=== PATIENT | female | born 1960 | race Caucasian/White ===

== ENCOUNTER → 2018-06-07 09:42 | Outpatient (CLI) | payer OTHER, SELFPAY ==
--- NOTE | 2018-06-07 09:51 | FL_ITS ---
FL upper GI small bowel HISTORY: ITS.REASON: EPIGASTRIC PAIN, REFLUX ORDERING PHYSICIAN: Cortney Alvarez PATIENT AGE: 57 years Comparison: None FINDINGS: The esophagus, stomach, and duodenum have an unremarkable appearance. There is no evidence of hiatal hernia. No ulcer or mass evident. No mucosal abnormalities apparent. There is normal peristalsis. The duodenal C-loop is nondisplaced. There was a small amount reflux into the distal esophagus. The small bowel has an unremarkable appearance. No obstruction, mucosal abnormalities, or masses are evident. The terminal ileum has an unremarkable appearance and the appendix didn't fill. FLUOROSCOPY TIME : 1 minute and 45 seconds. IMPRESSION: 1. Minimal amount of gastroesophageal reflux otherwise negative upper GI. 2. Unremarkable small bowel
== END ==
PROVIDERS: PCP Nurse Practitioner; Visit Provider Nurse Practitioner
DX: K21.9 Gastro-esophageal reflux disease without esophagitis (principal); R10.13 Epigastric pain
CPT/HCPCS: 74245

== ENCOUNTER 2019-03-16 08:23 | Outpatient (RCR) | payer OTHER, SELFPAY ==
--- NOTE | 2019-03-16 11:43 | HMH.PTOPEV ---
PT Outpatient Evaluation Rehab PT Outpatient Evaluation Start: 03/16/19 09:38 Freq: Status: Active Protocol: Document 03/16/19 09:39 LAXMI (Rec: 03/16/19 11:42 LAXMI [id number]) Electronically Signed By Dav Torres, PT 03/16/19 09:39 Outpatient Therapy Subjective History Subjective History Patient is a 58 year old female presenting to outpatient PT with reports of chronic low back pain with intermittent LLE radicular symptoms starting approximately 4 years ago of insidious onset that has recently progressivly gotten worse. No recent diagnostics to report. Special tests indciat R anterior rotation of the innominat. Pt reports 1 previous episode of PT with posititive results. Pt indicates flexion bias. Previous relief with lumbar mechanical traction. Pt denies any other comorbidites. Chief Complaint Pain,Stiff Symptom Type Ache,Sharp Symptoms Relieved By Rest/Positioning Prior Functional Limitations None Current Functional Limitations Lifting,Standing,Sitting, Walking,Bending/Stooping Symptom Description Intermittent Level of pain today (0-10) 5 Pain scale - at its best (0-10) 0 Pain scale - at its worst (0-10) 8 Lumbopelvic Eval Posture Thoracic Spine Posture Standing Position Increased Kyphosis Lumbar Spine Posture Standing Position Neutral Gait Observation General Gait Pattern Observation No Deviations/Normal Palapation tenderness left buttock tenderness Yes: 2/4 Lumbar/Sacral Palpation Findings Tenderness Lumbar/Sacral Palpation Overall Comment 2/4 L PSIS Accessory Movement L5 bilateral S1 bilateral Range of Motion Lumbar Spine Active Flexion Range of 78 Motion (degrees) Lumbar Spine Active Extension Range of 25 Motion (degrees) Left Lumbar Spine Lateral Flexion Active WNL Range of Motion (degrees) Right Lumbar Spine Lateral Flexion WNL Active Range of Motion (degrees) Lumbar Spine ROM Limitations Soft Tissue Tightness,Bony Restriction Manual Muscle Test Bilateral Knee Extension Strength Grade 4 Good Knee Flexion Strength Grade 4 Good Hip Flexion Strength Grade 4 Good Extensor Hallucis L
== END 2019-03-16 08:28 | disposition home or self-care (01) ==
LOC: PT 08:23
PROVIDERS: PCP Nurse Practitioner; Visit Provider Nurse Practitioner
DX: M54.9 Dorsalgia, unspecified (principal); R20.0 Anesthesia of skin
CPT/HCPCS: 97010; 97014; 97163; G0283

== ENCOUNTER → 2019-04-25 13:19 | Outpatient (POV) | payer OTHER, SELFPAY ==
[2019-04-25 15:27] LABS: Basophils # 0.1 K/mm3 (0-0.2); Basophils % 1.1 % (0.1-2.0); Eosinophils # 0.1 K/mm3 (0.0-0.4); Eosinophils % 1.5 % (0.1-12.0); Hematocrit 44.1 % (37.0-47.0); Hemoglobin 13.4 g/dL (12.2-16.2); Lymphocytes # 1.6 K/mm3 (0.7-4.5); Lymphocytes % 23.3 % (10-50); Mean Corpuscular HGB Conc 30.5 g/dL (31.8-35.4); Mean Corpuscular Hemoglobin 29.8 pg (27.0-31.2); Mean Corpuscular Volume 97.8 fl (81-99); Mean Platelet Volume 7.5 fl (7.4-10.4); Monocytes # 0.3 K/mm3 (0.1-1.0); Neutrophils # 4.6 K/mm3 (1.8-7.8); Neutrophils % 69.1 % (37.0-80.0); Platelet Count 344 K/mm3 (142-424); Red Blood Count 4.51 M/mm3 (4.20-5.40); Red Cell Distribution Width 13.7 % (11.5-17.5); White Blood Count 6.7 K/mm3 (4.8-10.8)
[2019-04-25 16:47] LABS: Alanine Aminotransferase 19 U/L (12-78); Albumin/Globulin Ratio 1.3 (1.1-1.8); Alkaline Phosphatase 117 U/L (46-116); Aspartate Amino Transferase 16 U/L (15-37); Bilirubin,Total 0.3 mg/dL (0.2-1.0); Blood Urea Nitrogen 14 mg/dL (7-18); Calcium 9.7 mg/dL (8.5-10.1); Carbon Dioxide 31 mmol/L (21.0-32.0); Chloride 103 mmol/L (98-107); Creatinine,Serum 0.47 mg/dL (0.55-1.02); Estimated Glomerular Filt Rate 136 ml/min (>60); GFR (African American) 165 ML/MIN (>60); Globulin 3.1 gm/dl (1.3-3.2); Glucose 110 mg/dL (74-106); Sodium 141 mmol/L (136-145); Total Protein,Serum 7.1 gm/dL (6.4-8.2)
== END ==
PROVIDERS: PCP Nurse Practitioner; Visit Provider Nurse Practitioner Family
DX: R76.8 Other specified abnormal immunological findings in serum (principal); E74.31 Sucrase-isomaltase deficiency; K59.00 Constipation, unspecified; R10.13 Epigastric pain
CPT/HCPCS: 36415; 80053; 85025; 87522

== ENCOUNTER → 2019-06-27 15:31 | Outpatient (POV) | payer OTHER, SELFPAY | PROVIDERS: Visit Provider Nurse Practitioner Family | DX: Z00.00 Encounter for general adult medical examination without abnormal findings (principal) ==

== ENCOUNTER 2020-08-16 06:50 | Emergency (ER) | payer BC, SELFPAY ==
[2020-08-16 06:52] VITALS: BP 169/66; PULSE 67; RESP 18; TEMP 37.1; O2SAT 97; BMI 21.9
--- NOTE | 2020-08-16 07:34 | CT_ITS ---
PROCEDURE: CT ABDOMEN PELVIS WO CON CLINICAL INDICATION: left flank pain COMPARISON: CT ABDPELW/O CT ABD PELVIS W/O CONTRAST from 01/12/2014 TECHNIQUE: Axial images obtained with sagittal and coronal reformats. All CT scans at the facility use one or more dose reduction, viz: automated exposure control, ma/kV adjustment per patient size (including targeted exams where dose is matched to indication, i.e. head), or iterative reconstruction technique. FINDINGS: LOWER THORAX: The lung bases are clear. ABDOMEN & PELVIS: There is mild thickening of the distal esophagus which is nonspecific. The liver and spleen have an unremarkable appearance. There is some mild fullness of the junction of the body and tail the pancreas. This is of questionable clinical significance and may be better evaluated with outpatient MRI without and with enhancement. Gallbladder has an unremarkable appearance. There are bilateral renal calculi measuring up to 8 mm in the lower pole on the right and 3 mm in the lower pole on the left. There is mild left hydronephrosis and hydroureter secondary to a 4 mm stone in the distal left ureter just proximal to the ureterovesical junction. Incidental note is made of some scarring of the upper pole of the right kidney. No evidence of appendicitis. There is colonic diverticulosis but no evidence of diverticulitis. A small focus of calcification is present in the mid aspect of the body of the uterus unchanged. There is multilevel lumbar spondylosis with prominent sclerosis at the endplate of L2 and L3 with anterior osteophytes at that level. There is mild levoscoliosis of the lumbar spine IMPRESSION: 1. 4 mm left distal ureteral calculus with mild left-sided hydroureteronephrosis. 2. Bilateral nephrolithiasis. 3. Mild fullness of the junction of the body and tail the pancreas. Nonemergent CT or MRI without and with contrast with pancreatic protocol may provide further evaluation 4. Colonic diverticulosis without diverticulitis Dictated by: Harry Dimas MD 08/16/2020 08:57 Harry Dimas MD in [place] 08/16/2020 08:57
[2020-08-16 07:41] VITALS: BP 146/62; PULSE 72; O2SAT 96
--- NOTE | 2020-08-16 07:49 | HMH.EDGENADL ---
ED Disposition Condition on Discharge: Good - Critical Care Critical Care Time: No <Marcus Lyman - Last Filed: 08/16/20 08:13> Condition on Discharge: Fair Time of Disposition: 09:52 - Critical Care Critical Care Time: No <Chinedu Nowak - Last Filed: 08/16/20 09:55> Clinical Impression: Renal colic on left side Disposition: Home, Self-Care Instructions: DI for Kidney Stones, DI for Urinary Tract Infection (UTI) Additional Instructions: Blood work shows low potassium as well as a urinary tract infection please continue to take the antibiotics already prescribed for you; we are also prescribing you Zofran for nausea; you also have a kidney stone on the left side it is 4 mm in size and this may pass on its own; as you seem to be stable we are sending you home with medications; please follow-up with a urologist in case of any concerns Prescriptions: Tamsulosin HCl [Flomax 0.4mg capsule] 0.4 mg PO HS 15 Days #15 cap Prescription Printed Ketorolac Tromethamine [Toradol 10mg tablet] 10 mg PO Q6H 5 Days #20 tab Prescription Printed Ondansetron [Zofran 4mg ODT] 4 mg PO NEEDED PRN 10 Days #14 tab.rapdis PRN Reason: Nausea Prescription Printed Referrals: Cortney Alvarez APRN [Primary Care Provider] - Alessandro Hendrickson MD [Staff Physician] - Attestation: On 08/16/20, the high probability of a clinically significant, sudden or life threatening deterioration of the following system(s) required my full and direct attention, intervention and personal management. The time I documented below is in addition to time spent performing reported procedures but includes the following listed in this critical care notation. Medical Decision Making - Medical Records Medical records reviewed: Yes: I reviewed the patient's medical records. - Mina Inquiry Pt receiving controlled substance: No - Lab Data Lab results reviewed: Yes: I reviewed the patient's lab results. Result diagrams: 08/16/20 07:10 08/16/20 07:10 <Marcus Lyman - Last Filed: 08/16/20 08:13> - Medical Records MR Comment: Patient is a 60 year old female that came in with a complaint of flank pain; Took over care from Dr. Lyman; reviewed her labs and it shows she has low potassium with a potassium of 3.2; plan is to give her 40 mEq of potassium; urinalysis shows urinary tract infection with nitrites positive and 3+ blood; CT of the abdomen and pelvis shows 4mm stone in the left side left distal ureter area with mild left hydronephrosis; she has been given IV fluids and Toradol she is doing better now; she does have antibiotic already prescribed by her PCP; Advising her to continue with the antibiotic and follow-up with urologist we will be prescribing her Toradol 10 as well as Zofran for nausea - Mina Inquiry Pt receiving controlled substance: No - Lab Data Lab results reviewed: Yes: I reviewed the patient's lab results. Result diagrams: 08/16/20 07:10 08/16/20 07:10 <Chinedu Nowak - Last Filed: 08/16/20 09:55> Vital Signs: 08/16/20 06:52 08/16/20 07:41 08/16/20 08:00 Temperature 98.7 F Temperature Source Oral Pulse Rate [Left Radial] 67 72 78 Respiratory Rate 18 Blood Pressure [Right Arm] 169/66 H 146/62 H 125/47 L Blood Pressure Mean [Right Arm] 100 90 73 Blood Pressure Source [Right Arm] Automatic Cuff Automatic Cuff Automatic Cuff Blood Pressure Position [Right Arm] Sitting Sitting Sitting 02 Sat by Pulse Oximetry 97 96 96 Oxygen Delivery Method Room Air Room Air Room Air - Lab Data Lab Results 08/16/20 07:10: WBC 10.0, RBC 4.57, Hgb 14.5, Hct 43.2, MCV 94.6, MCH 31.7 H, MCHC 33.5, RDW 13.7, Plt Count 345, MPV 7.7, Neut % (Auto) 75.5, Lymph % (Auto) 17.0, [place] % (Auto) 5.7, Eos % (Auto) 1.1, Baso % (Auto) 0.6, Neut # (Auto) 7.6, Lymph # (Auto) 1.7, [place] # (Auto) 0.6, Eos # (Auto) 0.1, Baso # (Auto) 0.1 08/16/20 07:10: Sodium 141, Potassium 3.2 L, Chloride 105, Carbon Dioxide 28, Anion Gap 11
[2020-08-16 07:53] LABS: Microscopic, Urine URINE MICROSCOPIC (MICROSCOPIC)
[2020-08-16 07:54] LABS: Appearance,Urine CLEAR (Clear); Bilirubin,Urine Negative (Negative); Blood, Urine 3+ (Negative); Color,Urine YELLOW (Yellow); Glucose,Urine (UA) Negative (Negative); Ketones,Urine Negative (Negative); Leukocyte Esterase,Urine Negative (Negative); Nitrate,Urine POSITIVE (Negative); PH,Urine 6.5 (5.0-8.5); Protein,Urine TRACE (Negative); Specific Gravity, Urine 1.025 (1.005-1.030); Urobilinogen,Urine 0.2 EU/dl (0.2)
[2020-08-16 07:58] LABS: Basophils # 0.1 K/mm3 (0-0.2); Basophils % 0.6 % (0.1-2.0); Eosinophils # 0.1 K/mm3 (0.0-0.4); Eosinophils % 1.1 % (0.1-12.0); Hematocrit 43.2 % (37.0-47.0); Hemoglobin 14.5 g/dL (12.2-16.2); Lymphocytes # 1.7 K/mm3 (0.7-4.5); Mean Corpuscular HGB Conc 33.5 g/dL (31.8-35.4); Mean Corpuscular Hemoglobin 31.7 pg (27.0-31.2); Mean Corpuscular Volume 94.6 fl (81-99); Mean Platelet Volume 7.7 fl (7.4-10.4); Monocytes # 0.6 K/mm3 (0.1-1.0); Monocytes % 5.7 % (1.7-9.3); Neutrophils # 7.6 K/mm3 (1.8-7.8); Neutrophils % 75.5 % (37.0-80.0); Platelet Count 345 K/mm3 (142-424); Red Blood Count 4.57 M/mm3 (4.20-5.40); Red Cell Distribution Width 13.7 % (11.5-17.5)
[2020-08-16 08:00] VITALS: BP 125/47; PULSE 78; O2SAT 96
[2020-08-16 08:02] LABS: Alanine Aminotransferase 17 U/L (12-78); Albumin Level 4.4 g/dl (3.5-5.0); Albumin/Globulin Ratio 1.6 (1.1-1.8); Alkaline Phosphatase 118 U/L (38-126); Anion Gap 11.2 mEq/L (5-15); Aspartate Amino Transferase 28 U/L (14-36); Bilirubin,Total 0.7 mg/dl (0.2-1.3); Blood Urea Nitrogen 14 mg/dl (7-17); Calcium 9.6 mg/dl (8.4-10.2); Carbon Dioxide 28 mmol/L (22.0-30.0); Chloride 105 mmol/L (98-107); Creatinine Clearance Estimated 75 mL/min (50-200); Estimated Glomerular Filt Rate 102 ml/min (>60); GFR (African American) 123 ML/MIN (>60); Globulin 2.8 g/dL (1.3-3.2); Glucose 148 mg/dl (74-100); Potassium 3.2 mmoL/L (3.5-5.1); Sodium 141 mmol/L (136-145); Total Protein,Serum 7.2 g/dl (6.3-8.2)
[2020-08-16 08:21] LABS: RBC,Urine TNTC #/hpf (0-3); Squamous Epithelial Cell,Urine Occasional #/hpf (0-5)
[2020-08-16 10:04] VITALS: BP 145/58; PULSE 62; RESP 20; TEMP 37.1; O2SAT 99
== END 2020-08-16 10:05 | disposition home or self-care (01) ==
PROVIDERS: Emergency Provider Emergency Medicine; PCP Nurse Practitioner
DX: N13.2 Hydronephrosis with renal and ureteral calculous obstruction (principal); F17.210 Nicotine dependence, cigarettes, uncomplicated
CPT/HCPCS: 74176; 80053; 81001; 85025; 96365; 96375; 99283; J2405

== ENCOUNTER 2020-08-16 16:56 | Emergency (ER) | payer BC, SELFPAY ==
[2020-08-16 16:57] VITALS: BP 168/70; PULSE 87; RESP 18; TEMP 36.6; O2SAT 98; BMI 21.9
[2020-08-16 17:57] VITALS: BP 148/58; PULSE 68; RESP 16; O2SAT 99
[2020-08-16 18:03] VITALS: BP 148/58; PULSE 70; O2SAT 99
--- NOTE | 2020-08-16 18:07 | HMH.EDGENADL ---
ED Disposition Clinical Impression: Flank pain, acute Disposition: Home, Self-Care Condition on Discharge: Fair Instructions: Kidney Stones -- Adult Prescriptions: Hydrocod/Acet 5/325 mg [[place] 5/325mg tablet] 1 tab PO Q4HP PRN #10 tab PRN Reason: Moderate Pain Prescription Printed Referrals: Cortney Alvarez APRN [Primary Care Provider] - Time of Disposition: 18:19 - Critical Care Critical Care Time: No Attestation: On 08/16/20, the high probability of a clinically significant, sudden or life threatening deterioration of the following system(s) required my full and direct attention, intervention and personal management. The time I documented below is in addition to time spent performing reported procedures but includes the following listed in this critical care notation. Medical Decision Making - Medical Records Medical records reviewed: Yes: I reviewed the patient's medical records. MR Comment: This is a 60-year-old female here with a complaint of left flank pain she was seen earlier today and diagnosed with a 4 mm kidney stone with mild nephrosis and hydroureter she was given prescriptions for Toradol 10 mg as well as Zofran for nausea she is back here with a complaint that the Toradol is not helping enough and she would like something stronger. Additional Work-up is felt unnecessary at this point patient is being given IV fluids. Will dc home with norco for pain and advise follow up with urology - Mina Inquiry Pt receiving controlled substance: Yes Mina was queried for this patient: No Reason not queried -: Mina login issues Risks and benefits of using a controlled substance: were discussed with pt by me Vital Signs: 08/16/20 16:57 08/16/20 17:57 08/16/20 18:03 Temperature 98 F Temperature Source Oral Pulse Rate [Radial] 87 68 70 Respiratory Rate 18 16 Blood Pressure [Right Arm] 168/70 H 148/58 H 148/58 H Blood Pressure Mean [Right Arm] 102 88 88 Blood Pressure Source [Right Arm] Automatic Cuff Automatic Cuff Blood Pressure Position [Right Arm] Sitting Supine Sitting 02 Sat by Pulse Oximetry 98 99 99 Oxygen Delivery Method Room Air Nasal Cannula Nasal Cannula Oxygen Flow Rate (LPM) 2 2 - Lab Data Lab results reviewed: Yes: I reviewed the patient's lab results. Orders (Tests/Meds): ED MEDICATIONS Generic Name Dose Route Start Last Admin Trade Name Freq PRN Reason Stop Dose Admin Sodium Chloride 1,000 mls @ 999 mls/hr 08/16/20 17:45 08/16/20 17:36 Sod Chlor 0.9% 1000ml Bag IV 08/16/20 18:45 999 mls/hr .Q1H1M SHAMIKA Administration Discontinued Medications Generic Name Dose Route Start Last Admin Trade Name Trell PRN Reason Stop Dose Admin Hydromorphone HCl 1 mg 08/16/20 17:34 08/16/20 17:36 Hydromorphone 2mg/Ml Syringe IV 08/16/20 17:35 1 mg ONCE ONE Administration Ondansetron HCl 4 mg 08/16/20 17:33 08/16/20 17:36 Ondansetron 4mg/2ml Vial IV 08/16/20 17:34 4 mg ONCE ONE Administration General Adult HPI - General Chief complaint: PAIN Stated complaint: kidney stone Time Seen by Provider: 08/16/20 18:00 Mode of Arrival: Ambulatory Limitations: No Limitations Description of Symptoms (Recalled from ER Triage Doc. by RN): to ed per pvt car with c/o lt side flank pain pt here this am for same and dx with kidney stone. pt states went home and pain returned with no relief with po toradol. +nausea and vomiting - History of Present Illness HPI narrative: This is a 60-year-old female here with a complaint of left flank pain she was seen earlier today and diagnosed with a 4 mm kidney stone with mild nephrosis and hydroureter she was given prescriptions for Toradol 10 mg as well as Zofran for nausea she is back here with a complaint that the Toradol is not helping enough and she would like something stronger Onset (ago): hour(s) Radiation: non-radiation Severity: moderate Severity scale (1-10): 4 Quality: sharp Relievi
[2020-08-16 18:42] VITALS: BP 164/71; PULSE 82; O2SAT 100
[2020-08-16 19:30] VITALS: BP 135/58; PULSE 76; RESP 16; O2SAT 97
--- NOTE | 2020-08-16 19:36 | PC.NURSE ---
REPORT GIVEN TO SOCRATES MAKI PER CONSTANZA MAKI
[2020-08-16 20:08] VITALS: BP 128/52; PULSE 81; RESP 16; TEMP 36.6; O2SAT 98
== END 2020-08-16 20:10 | disposition home or self-care (01) ==
PROVIDERS: Emergency Provider Emergency Medicine; PCP Nurse Practitioner
DX: N20.0 Calculus of kidney (principal); F17.210 Nicotine dependence, cigarettes, uncomplicated
CPT/HCPCS: 96365; 96375; 99283; J2405

== ENCOUNTER → 2020-08-20 14:32 | Outpatient (CLI) | payer BC, SELFPAY ==
--- NOTE | 2020-08-20 14:41 | XR_ITS ---
PROCEDURE: XR KUB CLINICAL INDICATION: kidney stone COMPARISON: CT CT ABDOMEN PELVIS WO CON from 08/16/2020 FINDINGS: There is mild lumbar scoliosis convex left. There are bilateral renal calculi measuring up to 5 mm in the lower pole on the right. There is a faint calcific density in the left pelvic region at 3 mm and may be due to a distal ureteral stone. IMPRESSION: Bilateral nephrolithiasis with possible left distal ureteral calculus which would correspond to the abnormality noted on the CT scan Dictated by: Harry Dimas MD 08/20/2020 16:24 Harry Dimas MD in [facility] 08/20/2020 16:24
== END ==
PROVIDERS: PCP Nurse Practitioner; Visit Provider Urology
DX: N20.0 Calculus of kidney (principal)
CPT/HCPCS: 74018

== ENCOUNTER → 2020-11-23 14:04 | Outpatient (CLI) | payer BC, SELFPAY ==
--- NOTE | 2020-11-23 14:06 | XR_ITS ---
PROCEDURE: XR KUB CLINICAL INDICATION: RT FLANK PAIN COMPARISON: CT CT ABDOMEN PELVIS WO CON from 08/16/2020 FINDINGS: There is bilateral nephrolithiasis multiple small bilateral renal calculi the largest in the lower pole on right at approximately 5 mm. Previously noted distal ureteral calculus is no longer apparent. There is a 2 mm calcific density in the left pelvic region medially and may be due to a phleboliths. There is diffuse vascular calcification noted and there is lumbar scoliosis convex left. IMPRESSION: Bilateral nephrolithiasis. No definite ureteral calculus. Dictated by: Harry Dimas MD 11/23/2020 15:02 Harry Dimas MD in [facility] 11/23/2020 15:02
--- NOTE | 2020-11-23 16:15 | CT_ITS ---
PROCEDURE INFORMATION: Exam: CT Abdomen And Pelvis Without Contrast Exam date and time: 11/23/2020 4:15 PM Age: 60 years old Clinical indication: Other: Kidney sone t; Additional info: Kidney stone TECHNIQUE: Imaging protocol: Computed tomography of the abdomen and pelvis without contrast. Radiation optimization: All CT scans at this facility use at least one of these dose optimization techniques: automated exposure control; mA and/or kV adjustment per patient size (includes targeted exams where dose is matched to clinical indication); or iterative reconstruction. COMPARISON: CR XR KUB 11/23/2020 2:07:47 PM CR XR KUB 08/20/2020 2:53:[address] ABDOMEN PELVIS WO CON 08/16/2020 8:10 AM ABDPELW/O CT ABD PELVIS W/O CONTRAST 01/12/2014 11:52:04 AM No other comparison studies were made available at the time of interpretation. FINDINGS: Lungs: Subcentimeter calcified pulmonary nodules in both lungs, likely reflecting granulomas. Heart: Normal-sized heart. No pericardial effusion. Atherosclerosis of the visualized descending thoracic aorta. Thoracic lymph nodes: Subcentimeter calcified paraesophageal lymph node is likely granulomatous in etiology. Liver: Unremarkable noncontrast appearance of the liver. Gallbladder and bile ducts: No radiopaque stones identified within the gallbladder. No CT evidence for gallbladder wall thickening. No bile duct dilation. Pancreas: Unremarkable noncontrast appearance of the pancreas. Spleen: Non-enlarged spleen. Small calcifications in the spleen, likely sequela from old, healed granulomatous disease. Adrenal glands: Normal adrenal glands. Kidneys and ureters: Lobulated contour of the right kidney with an area of tissue loss, indicating renal scarring. Redemonstrated subcentimeter low attenuating lesion in the right kidney, too small to further characterize. Subcentimeter calcified nonobstructing calyceal stones in the right kidney. Redemonstrated 1.4 x 1.1 cm water attenuating lesion in the left kidney, likely reflecting a cyst. Sub-5 mm calcified nonobstructing calyceal stones in the left kidney. No calcified ureteral stone. No hydronephrosis. Stomach and bowel: Unremarkable appearance of the unopacified small bowel. Colonic diverticulosis. Appendix: No evidence of appendicitis. Intraperitoneal space: No free intraperitoneal gas. No significant fluid collection. Vasculature: Atherosclerosis of the abdominal aorta including at the origin of the bilateral renal arteries. Iliofemoral atherosclerosis. Phleboliths in the pelvis. Lymph nodes: No enlarged abdominal or pelvic lymph nodes based on CT size criterion. Urinary bladder: Unremarkable as visualized. Reproductive: Anteverted uterus. Redemonstrated contour abnormality at the posterior body of the uterus could reflect a fibroid. Unchanged sub-5 mm uterine calcification. No adnexal mass. Bones/joints: Diffuse bony demineralization. Levoconvex scoliosis of the lumbar spine. Grade 1 retrolisthesis of L5 on S1, unchanged compared to the prior study. Degenerative changes of the visualized spine. Facet arthropathy of the visualized spine. Disc degenerative disease of the visualized spine. Redemonstrated lumbar stenosis, likely due to a combination of spondylolisthesis, spondylosis and disc degenerative disease. Soft tissues: Small fat containing umbilical hernia. IMPRESSION: Bilateral nonobstructive nephrolithiasis as detailed above. Other findings noted above.
== END ==
PROVIDERS: PCP Family Medicine; Visit Provider Urology
DX: R10.9 Unspecified abdominal pain (principal); N20.0 Calculus of kidney
CPT/HCPCS: 74018; 74176

== ENCOUNTER → 2021-08-22 13:17 | Outpatient (CLI) | payer BC, SELFPAY ==
--- NOTE | 2021-08-22 13:20 | XR_ITS ---
FINAL REPORT CLINICAL HISTORY: kidney stone, right flank pain COMPARISON: November 23, 2020 FINDINGS: A single view of the abdomen was obtained. There is a nonobstructive bowel gas pattern. There are no abnormally dilated loops of small bowel. There is a large amount of retained stool. There is 20? of lumbar scoliosis convex to the left. No abnormal calcifications are identified. IMPRESSION: Large amount retained stool. No abnormal calcifications identified. Reviewed, Interpreted and Dictated by Kraig Hatch MD Transcribed by Linda Victoria Authenticated by Kraig Hatch MD on 08/22/2021 02:22:24 PM [facility]
== END ==
PROVIDERS: PCP Nurse Practitioner Family; Visit Provider Urology
DX: N20.0 Calculus of kidney (principal)
CPT/HCPCS: 74018

== ENCOUNTER → 2021-08-22 15:16 | Outpatient (CLI) | payer BC, SELFPAY | PROVIDERS: Visit Provider Urology | DX: N20.0 Calculus of kidney (principal) | CPT/HCPCS: 87086 ==

== ENCOUNTER → 2021-08-27 07:13 | Outpatient (CLI) | payer BC, SELFPAY ==
--- NOTE | 2021-08-27 07:16 | CT_ITS ---
FINAL REPORT CLINICAL HISTORY: bilat kidney stone. no movement per pt. hematuria COMPARISON: 11/23/2020 FINDINGS: Technique: Axial images through the abdomen and pelvis were performed by computed tomography. This study was performed with techniques to keep radiation doses as low as reasonably achievable (ALARA). Individualized dose reduction techniques using automated exposure control or adjustment of mA and/or kV according to the patient's size were employed. Abdomen: There is calcified granuloma in the left lung base. The liver is normal in size and attenuation. The spleen is unremarkable. The pancreas is normal. The adrenals are normal. The aorta is normal in caliber. There is mild right renal scarring. There is a left renal mass measuring up to 20 mm which cannot be accurately characterized without contrast, may represent a cyst. There is no hydronephrosis. There are multiple nonobstructing bilateral renal stones measuring up to 3 mm. Note is made of vascular calcification. Pelvis: The appendix is unremarkable. There are multiple sigmoid diverticula. There is a small uterine calcification. The urinary bladder is unremarkable. There is no free fluid or adenopathy. IMPRESSION: Bilateral nephrolithiasis. Reviewed, Interpreted and Dictated by Ruben Higginbotham III, MD Transcribed by Rose Rojas Authenticated by Ruben Higginbotham III, MD on 08/27/2021 08:01:10 AM [facility]
== END ==
PROVIDERS: PCP Nurse Practitioner Family; Visit Provider Urology
DX: N20.0 Calculus of kidney (principal)
CPT/HCPCS: 74176

== ENCOUNTER → 2021-09-06 06:51 | Outpatient (CLI) | payer BC, SELFPAY ==
--- NOTE | 2021-09-06 06:52 | CT_ITS ---
FINAL REPORT CLINICAL HISTORY: left renal mass COMPARISON: CTs dated November 23, 2020 and August 27, 2021 FINDINGS: CT OF THE ABDOMEN AND PELVIS WITH CONTRAST Axial CT images of the abdomen and pelvis were obtained after the administration of iv contrast. Coronal reformatted images were also obtained and reviewed.This study was performed with techniques to keep radiation doses as low as reasonably achievable (ALARA). Individualized dose reduction techniques using automated exposure control or adjustment of mA and/or kV according to the patient's size were employed. Abdomen: The lung bases are clear. The heart is normal in size. The liver has an unremarkable appearance, without evidence of mass or biliary ductal dilatation. The gallbladder is present. The spleen is unremarkable. No adrenal mass is present. The pancreas has an unremarkable appearance. There is a 10 mm mass in the upper pole of the right kidney which has the appearance of a cyst. There is a 24 mm mass in the mid left kidney it previously measured 22 mm on November 23, 2020. It has borderline contrast enhancement on the postcontrast images but has an appearance most consistent with a cyst. The borderline contrast enhancement favored to be artifactual. There is mild right renal scarring. There are moderate vascular calcifications. There are small nonobstructing renal stones again noted. The aorta is normal in caliber. There is no free fluid or adenopathy. Pelvis: The appendix is normal. The urinary bladder is unremarkable. No inflammatory process is seen. There are prominent para uterine veins of uncertain significance but can be seen with pelvic congestion syndrome. There is scattered descending and sigmoid diverticula. There is no evidence of adenopathy. There is no evidence of bowel obstruction. IMPRESSION: Bilateral renal masses most consistent with cysts. Small nonobstructive renal stones. Prominent parauterine veins, nonspecific but can be seen with pelvic congestion syndrome. Reviewed, Interpreted and Dictated by Ruben Higginbotham III, MD Transcribed by Linda Victoria Authenticated by Ruben Higginbotham III, MD on 09/06/2021 09:35:27 AM [facility]
[2021-09-06 07:29] LABS: Blood Urea Nitrogen 13 mg/dl (7-17); Estimated Glomerular Filt Rate 102 ml/min (>60); GFR (African American) 123 ML/MIN (>60)
== END ==
PROVIDERS: PCP Nurse Practitioner Family; Visit Provider Urology
DX: N28.89 Other specified disorders of kidney and ureter (principal); R31.9 Hematuria, unspecified
CPT/HCPCS: 36415; 74177; 82565; 84520; Q9967

== ENCOUNTER 2021-09-08 10:11 | Observation (INO) | payer BC, SELFPAY ==
[2021-09-08] VITALS (10 sets, daily range): BP systolic 102–156; BP diastolic 42–87; PULSE 67–82; RESP 15–18; TEMP 36.6–37.1; O2SAT 90–98; BMI 21.6; BMI 23.1
[2021-09-08 10:45] LABS: Basophils # 0.1 K/mm3 (0-0.2); Basophils % 1.6 % (0.1-2.0); Eosinophils # 0.1 K/mm3 (0.0-0.4); Eosinophils % 0.9 % (0.1-12.0); Hematocrit 46.6 % (37.0-47.0); Hemoglobin 14.3 g/dL (12.2-16.2); Lymphocytes # 1.3 K/mm3 (0.7-4.5); Lymphocytes % 14.8 % (10-50); Mean Corpuscular HGB Conc 30.7 g/dL (31.8-35.4); Mean Corpuscular Hemoglobin 30.8 pg (27.0-31.2); Mean Corpuscular Volume 100.3 fl (81-99); Mean Platelet Volume 7.7 fl (7.4-10.4); Monocytes # 0.3 K/mm3 (0.1-1.0); Monocytes % 3.7 % (1.7-9.3); Neutrophils # 7.1 K/mm3 (1.8-7.8); Neutrophils % 79.1 % (37.0-80.0); Platelet Count 339 K/mm3 (142-424); Red Blood Count 4.64 M/mm3 (4.20-5.40); Red Cell Distribution Width 13.6 % (11.5-17.5)
[2021-09-08 10:50] LABS: Microscopic, Urine URINE MICROSCOPIC (MICROSCOPIC)
[2021-09-08 10:51] LABS: Chloride 104 mmol/L (98-107); Sodium 136 mmol/L (136-145)
[2021-09-08 10:52] LABS: Potassium 3.6 mmoL/L (3.5-5.1)
[2021-09-08 10:54] LABS: Alanine Aminotransferase 14 U/L (12-78); Albumin Level 4.5 g/dl (3.5-5.0); Albumin/Globulin Ratio 1.6 (1.1-1.8); Alkaline Phosphatase 111 U/L (38-126); Anion Gap 6.6 mEq/L (5-15); Aspartate Amino Transferase 28 U/L (14-36); Bilirubin,Total 0.6 mg/dl (0.2-1.3); Blood Urea Nitrogen 15 mg/dl (7-17); Carbon Dioxide 29 mmol/L (22.0-30.0); Creatinine Clearance Estimated 45 mL/min (50-200); Estimated Glomerular Filt Rate 102 ml/min (>60); GFR (African American) 123 ML/MIN (>60); Globulin 2.9 g/dL (1.3-3.2); Total Protein,Serum 7.4 g/dl (6.3-8.2)
[2021-09-08 10:55] LABS: Calcium 8.8 mg/dl (8.4-10.2); Glucose 124 mg/dl (74-100)
[2021-09-08 10:56] LABS: Appearance,Urine TURBID (Clear); Bilirubin,Urine Negative (Negative); Blood, Urine 3+ (Negative); Color,Urine DK YELLOW (Yellow); Glucose,Urine (UA) Negative (Negative); Ketones,Urine Negative (Negative); Leukocyte Esterase,Urine TRACE (Negative); Nitrate,Urine Negative (Negative); PH,Urine 6.5 (5.0-8.5); Protein,Urine TRACE (Negative); Specific Gravity, Urine 1.025 (1.005-1.030); Urobilinogen,Urine 0.2 EU/dl (0.2)
[2021-09-08 11:18] LABS: Bacteria,Urine 2+ /lpf; RBC,Urine 20-50 #/hpf (0-3)
--- NOTE | 2021-09-08 11:25 | HMH.EDGENADL ---
ED Disposition Clinical Impression: Kidney calculus, UTI (urinary tract infection) Disposition: Admitted as Observation Condition on Discharge: Good - Critical Care Critical Care Time: No Attestation: On 09/08/21, the high probability of a clinically significant, sudden or life threatening deterioration of the following system(s) required my full and direct attention, intervention and personal management. The time I documented below is in addition to time spent performing reported procedures but includes the following listed in this critical care notation. Medical Decision Making - Medical Records Medical records reviewed: Yes: I reviewed the patient's medical records. - Mina Inquiry Pt receiving controlled substance: No Vital Signs: 09/08/21 10:12 09/08/21 11:00 09/08/21 12:28 Temperature 98.7 F Temperature Source Oral Pulse Rate 75 76 Pulse Rate [Radial] 67 Respiratory Rate 18 16 16 Blood Pressure 155/75 H 151/69 H Blood Pressure [Left Arm] Blood Pressure Mean 98 Blood Pressure Mean [Left Arm] Blood Pressure Source [Left Arm] Blood Pressure Position Sitting Blood Pressure Position [Left Arm] 02 Sat by Pulse Oximetry 98 98 98 Oxygen Delivery Method Room Air Room Air 09/08/21 12:56 09/08/21 13:01 09/08/21 13:30 Temperature Temperature Source Pulse Rate Pulse Rate [Radial] Respiratory Rate Blood Pressure 142/64 H 135/63 143/70 H Blood Pressure [Left Arm] Blood Pressure Mean Blood Pressure Mean [Left Arm] Blood Pressure Source [Left Arm] Blood Pressure Position Blood Pressure Position [Left Arm] 02 Sat by Pulse Oximetry Oxygen Delivery Method 09/08/21 13:50 09/08/21 13:59 09/08/21 14:12 Temperature 98.3 F 98 F Temperature Source Oral Oral Pulse Rate 81 81 Pulse Rate [Radial] 74 Respiratory Rate 15 16 16 Blood Pressure 156/75 H 153/87 H Blood Pressure [Left Arm] 156/75 H Blood Pressure Mean 86 Blood Pressure Mean [Left Arm] 102 Blood Pressure Source [Left Arm] Automatic Cuff Blood Pressure Position Sitting Blood Pressure Position [Left Arm] Supine 02 Sat by Pulse Oximetry 96 90 L Oxygen Delivery Method Room Air Room Air - Lab Data Lab results reviewed: Yes: I reviewed the patient's lab results. Lab Results 09/08/21 10:19: Urine Color Dk yellow, Urine Appearance Turbid, Urine pH 6.5, Ur Specific [place] 1.025, Urine Protein Trace, Urine Glucose (UA) Negative, Urine Ketones Negative, Urine Blood 3+, Urine Nitrate Negative, Urine Bilirubin Negative, Urine Urobilinogen 0.2, Ur Leukocyte Esterase Trace, Urine RBC 20-50, Urine WBC 10-20, Ur Squamous Epith Cells 10-20, Urine Bacteria 2+ 09/08/21 10:33: WBC 9.0, RBC 4.64, Hgb 14.3, Hct 46.6, MCV 100.3 H, MCH 30.8, MCHC 30.7 L, RDW 13.6, Plt Count 339, MPV 7.7, Neut % (Auto) 79.1, Lymph % (Auto) 14.8, [place] % (Auto) 3.7, Eos % (Auto) 0.9, Baso % (Auto) 1.6, Neut # (Auto) 7.1, Lymph # (Auto) 1.3, [place] # (Auto) 0.3, Eos # (Auto) 0.1, Baso # (Auto) 0.1 09/08/21 10:33: Sodium 136, Potassium 3.6, Chloride 104, Carbon Dioxide 29, Anion Gap 6.6, BUN 15, Creatinine 0.60, Estimated Creat Clear 45, Estimated GFR 102, Est GFR ( Amer) 123, Glucose 124 H, Calcium 8.8, Total Bilirubin 0.6, AST 28, ALT 14, Alkaline Phosphatase 111, Total Protein 7.4, Albumin 4.5, Globulin 2.9, Albumin/Globulin Ratio 1.6 09/08/21 12:37: SARS-CoV-2 (PCR) Not detected, Influenza A Untype (PCR) Not detected, Influenza Type B (PCR) Not detected Result diagrams: 09/08/21 10:33 09/08/21 10:33 Orders (Tests/Meds): ED MEDICATIONS Generic Name Dose Route Start Last Admin Trade Name Freq PRN Reason Stop Dose Admin Acetaminophen 650 mg 09/08/21 13:50 Acetaminophen 325mg Tab PO 10/08/21 13:49 Q4HP PRN Fever or Mild Pain Hydrocodone Bitart/Acetaminophen 1 tab 09/08/21 13:50 09/08/21 14:37 Hydrocodone/Apap 5/325 Mg Tablet PO 10/08/21 13:49 1 tab Q4HP PRN Administrat
--- NOTE | 2021-09-08 11:58 | PC.NURSE ---
has been paged
--- NOTE | 2021-09-08 12:04 | PC.NURSE ---
Dr. Ferguson called back and speaking with Dr. Hassan at this time.
[2021-09-08 13:07] LABS: Coronavirus 19, PCR Not Detected (NotDetected); Influenza A, PCR Not Detected (NotDetected); Influenza B, PCR Not Detected (NotDetected)
--- NOTE | 2021-09-08 13:40 | PC.NURSE ---
REPORT CALLED TO NIKOLAI MAKI
--- NOTE | 2021-09-08 13:49 | PC.NURSE ---
2nd floor staff upstairs down here to get patient and take her to her inpatient room.
--- NOTE | 2021-09-08 13:53 | PC.NURSE ---
Pt arrived to the floor at this time
[2021-09-09] VITALS: BP 120/53; PULSE 66; RESP 18; TEMP 37.2; O2SAT 94
[2021-09-09 04:00] VITALS: BP 114/55; PULSE 72; RESP 14; TEMP 37.4; O2SAT 90
[2021-09-09 05:00] VITALS: BMI 23.2
[2021-09-09 06:13] LABS: Basophils # 0.1 K/mm3 (0-0.2); Basophils % 0.6 % (0.1-2.0); Eosinophils # 0.1 K/mm3 (0.0-0.4); Eosinophils % 0.7 % (0.1-12.0); Hematocrit 42.5 % (37.0-47.0); Hemoglobin 13.4 g/dL (12.2-16.2); Lymphocytes # 1.6 K/mm3 (0.7-4.5); Lymphocytes % 15.3 % (10-50); Mean Corpuscular HGB Conc 31.6 g/dL (31.8-35.4); Mean Corpuscular Hemoglobin 31.1 pg (27.0-31.2); Mean Corpuscular Volume 98.4 fl (81-99); Monocytes # 0.7 K/mm3 (0.1-1.0); Monocytes % 6.6 % (1.7-9.3); Neutrophils # 8.2 K/mm3 (1.8-7.8); Neutrophils % 76.7 % (37.0-80.0); Platelet Count 327 K/mm3 (142-424); Red Blood Count 4.32 M/mm3 (4.20-5.40); Red Cell Distribution Width 13.5 % (11.5-17.5); White Blood Count 10.6 K/mm3 (4.8-10.8)
[2021-09-09 06:16] LABS: Chloride 106 mmol/L (98-107); Sodium 136 mmol/L (136-145)
[2021-09-09 06:17] LABS: Potassium 3.6 mmoL/L (3.5-5.1)
[2021-09-09 06:19] LABS: Alanine Aminotransferase 18 U/L (12-78); Albumin Level 4.1 g/dl (3.5-5.0); Albumin/Globulin Ratio 1.5 (1.1-1.8); Alkaline Phosphatase 102 U/L (38-126); Anion Gap 7.6 mEq/L (5-15); Aspartate Amino Transferase 38 U/L (14-36); Bilirubin,Total 0.8 mg/dl (0.2-1.3); Blood Urea Nitrogen 20 mg/dl (7-17); Calcium 8.1 mg/dl (8.4-10.2); Carbon Dioxide 26 mmol/L (22.0-30.0); Creatinine Clearance Estimated 47 mL/min (50-200); Estimated Glomerular Filt Rate 56 ml/min (>60); GFR (African American) 68 ML/MIN (>60); Globulin 2.7 g/dL (1.3-3.2); Total Protein,Serum 6.8 g/dl (6.3-8.2)
[2021-09-09 06:21] LABS: Glucose 99 mg/dl (74-100)
--- NOTE | 2021-09-09 06:55 | HMH.HP ---
*Admission Date: 09/08/21 *Chief complaint: Right flank pain *History of present illness: 61-year-old female with history of kidney stones who is recently been seen Dr. Hendrickson for said stones as well as identified renal masses presented to the ER with right flank and suprapubic pain. Patient reports gross hematuria as well. Work-up in the emergency department identified urinary tract infection. White blood cell count was normal and patient denies having any fevers. ER physician was concerned about developing pyelonephritis. Patient was started on IV antibiotics and admitted for observation. This morning she reports improvement in her symptoms. She has not developed any fevers overnight [facility] History Medical History: Reports:: Cancer, Kidney Stones Denies:: Carotid Stenosis, Diabetes Mellitus Type 1, Diabetes Mellitus Type 2, Internal Pacemaker, Lung Disease, MRSA, Seizures *Have you ever received a pneumonia vaccine?: No *Have you received a flu vaccine this season?: No Laterality Cases: Bilateral: Other Other Surgeries: Yes: No Previous Surgery, Cancer Surgery, Colonoscopy, Other. No: Pacemaker Amputation: No Fractures: No - *Social History Smoking Status: Current every day smoker Tobacco Type: cigarettes # Packs/Day (cigarettes): 1 Alcohol Intake: never Substance Use Type: denies use *Occupational Status:: employed Housing: house Household Members: spouse *Travel in the last 8 weeks: None Family Hx:: Anemia, Diabetes, Hyperlipidemia, Hypertension, Kidney Disease, Stroke Review of Systems - Review of Systems Review of systems:: pertinent systems reviewed and negative unless documented below - *Neurologic Reports weakness Meds Home Medications Medication Instructions Recorded Confirmed Type metoclopramide HCl 10 mg tablet 10 mg PO QID #120 tab 03/18/19 09/08/21 History Hydrocod/Acet 5/325 mg [[place] 1 tab PO Q4HP PRN #10 tab 08/16/20 09/08/21 Rx 5/325mg tablet] Ketorolac Tromethamine [Toradol 10 mg PO Q6H 09/08/21 09/08/21 History 10mg tablet] Allergies Allergy/AdvReac Type Severity Reaction Status Date / Time No Known Allergies Allergy Verified 08/27/21 09:34 Exam Vital signs and Labs for Last 24 Hours: Temp Pulse Resp BP Pulse Ox 99.4 F 72 14 114/55 L 90 L 09/09/21 04:00 09/09/21 04:00 09/09/21 04:00 09/09/21 04:00 09/09/21 04:00 Laboratory Results - last 24 hr 09/08/21 10:19: Urine Color Dk yellow, Urine Appearance Turbid, Urine pH 6.5, Ur Specific [place] 1.025, Urine Protein Trace, Urine Glucose (UA) Negative, Urine Ketones Negative, Urine Blood 3+, Urine Nitrate Negative, Urine Bilirubin Negative, Urine Urobilinogen 0.2, Ur Leukocyte Esterase Trace, Urine RBC 20-50, Urine WBC 10-20, Ur Squamous Epith Cells 10-20, Urine Bacteria 2+ 09/08/21 10:33: WBC 9.0, RBC 4.64, Hgb 14.3, Hct 46.6, MCV 100.3 H, MCH 30.8, MCHC 30.7 L, RDW 13.6, Plt Count 339, MPV 7.7, Neut % (Auto) 79.1, Lymph % (Auto) 14.8, [place] % (Auto) 3.7, Eos % (Auto) 0.9, Baso % (Auto) 1.6, Neut # (Auto) 7.1, Lymph # (Auto) 1.3, [place] # (Auto) 0.3, Eos # (Auto) 0.1, Baso # (Auto) 0.1 09/08/21 10:33: Sodium 136, Potassium 3.6, Chloride 104, Carbon Dioxide 29, Anion Gap 6.6, BUN 15, Creatinine 0.60, Estimated Creat Clear 45, Estimated GFR 102, Est GFR ( Amer) 123, Glucose 124 H, Calcium 8.8, Total Bilirubin 0.6, AST 28, ALT 14, Alkaline Phosphatase 111, Total Protein 7.4, Albumin 4.5, Globulin 2.9, Albumin/Globulin Ratio 1.6 09/08/21 12:37: SARS-CoV-2 (PCR) Not detected, Influenza A Untype (PCR) Not detected, Influenza Type B (PCR) Not detected 09/09/21 05:09: WBC 10.6, RBC 4.32, Hgb 13.4, Hct 42.5, MCV 98.4, MCH 31.1, MCHC 31.6 L, RDW 13.5, Plt Count 327, MPV 8.0, Neut % (Auto) 76.7, Lymph % (Auto) 15.3, [place] % (Auto) 6.6, Eos % (Auto) 0.7, Baso % (Auto) 0.6, Neut # (Auto) 8.2 H, Lymph # (Auto) 1.6, [place] # (Auto) 0.7, Eos # (Auto) 0.1, Baso # (Auto) 0.1 09/09/21 05:09: Sodium 136, Potassium 3.6, Chloride 106, Carb
--- NOTE | 2021-09-09 07:18 | HMH.PHAINT ---
MEDICATION RECONCILIATION COMPLETED ON PATIENT USING EXTERNAL FILL HISTORY FROM PHARMACY AND LIST FROM UROLOGY OFFICE. -CARLTON GARYD
--- NOTE | 2021-09-09 07:19 | HMH.PHAVTE ---
[facility] Pharmacy VTE Monitoring - Patient Demographics Admission date: 09/08/21 Report Date: 09/09/21 Time: 07:19 Allergies/Adverse Reactions: Patient Allergies No Known Allergies Allergy (Verified 08/27/21 09:34) Height: 1.47 m Weight: 50.2 kg Patient Problems: Current Active Problems Kidney calculus (Acute) UTI (urinary tract infection) (Acute) Cystitis (Acute) History of kidney stones (Acute) - VTE Risk Labs: VTE Related Lab Results Hgb 13.4 g/dL (12.2-16.2) 09/09/21 05:09 Hct 42.5 % (37.0-47.0) 09/09/21 05:09 Plt Count 327 K/mm3 (142-424) 09/09/21 05:09 BUN 20 mg/dl (7-17) H D 09/09/21 05:09 Creatinine 1.00 mg/dl (0.52-1.04) D 09/09/21 05:09 Estimated Creat Clear 47 mL/min (50-200) 09/09/21 05:09 VTE Score: 1 VTE Risk Level: Very Low Risk - Prophylaxis VTE Prophylaxis Ordered?: Yes Types of VTE Prophylaxis: TEDS Knee High Location of Applied Device: Bilateral Lower Extremeties
[2021-09-09 08:00] VITALS: TEMP 36.7
--- NOTE | 2021-09-09 08:17 | INFXCTL.NOTE ---
notified urology of consult
[2021-09-09 08:40] VITALS: PULSE 73; O2SAT 93
[2021-09-09 10:37] VITALS: BMI 23.2
--- NOTE | 2021-09-09 12:49 | HMH.PHAINT ---
Discharge counseling complete. Informed pt about new medication, what its for, side effects.
--- NOTE | 2021-09-09 12:59 | HMH.CONS ---
*Admission Date: 09/08/21 *Reason for consult:: Right flank pain *History of present illness: Patient is a 61-year-old white female with recent right-sided flank pain. She presented to the emergency room yesterday with worsening of the right-sided flank pain. I have been seeing the patient the last several weeks and she also had a new finding of a 2 cm left renal mass and a CT was repeated with contrast on September 06 that showed the mass was cystic. There was question of whether she had a right ureteral stone and patient has some vascular calcifications in the bony pelvis that made stone diagnosis difficult but I do believe that there are 1 or 2 small stones in the right ureter. Patient was symptomatic on admission with right-sided flank pain and abdominal pain and gross hematuria. She has felt better while in the hospital and has taken the couple of doses of Toradol. [facility] History Medical History: Reports:: Cancer, Kidney Stones Denies:: Carotid Stenosis, Diabetes Mellitus Type 1, Diabetes Mellitus Type 2, Internal Pacemaker, Lung Disease, MRSA, Seizures *Have you ever received a pneumonia vaccine?: No *Have you received a flu vaccine this season?: No Laterality Cases: Bilateral: Other Other Surgeries: Yes: No Previous Surgery, Cancer Surgery, Colonoscopy, Other. No: Pacemaker Amputation: No Fractures: No - *Social History Smoking Status: Current every day smoker Tobacco Type: cigarettes # Packs/Day (cigarettes): 1 Alcohol Intake: never Substance Use Type: denies use *Occupational Status:: employed Housing: house Household Members: spouse *Travel in the last 8 weeks: None Family Hx:: Anemia, Diabetes, Hyperlipidemia, Hypertension, Kidney Disease, Stroke Review of Systems - Review of Systems Review of systems:: pertinent systems reviewed and negative unless documented below - *Gastrointestinal Reports abdominal pain, Reports nausea - *Genitourinary Reports blood in urine, Denies painful urination - *Neurologic Reports weakness Meds Home Medications Medication Instructions Recorded Confirmed Type metoclopramide HCl 10 mg tablet 10 mg PO ACHS #120 tab 03/18/19 09/09/21 History Hydrocod/Acet 5/325 mg [[place] 1 tab PO Q4HP PRN #10 tab 08/16/20 09/08/21 Rx 5/325mg tablet] Ketorolac Tromethamine [Toradol 10 mg PO Q6H 09/08/21 09/08/21 History 10mg tablet] levoFLOXacin [Levaquin 500mg 500 mg PO DAILY #7 tab 09/09/21 Rx tab] Allergies Allergy/AdvReac Type Severity Reaction Status Date / Time No Known Allergies Allergy Verified 08/27/21 09:34 Exam Vital signs and Labs for Last 24 Hours: Temp Pulse Resp BP Pulse Ox 98.1 F 73 14 114/55 L 93 L 09/09/21 08:00 09/09/21 08:40 09/09/21 04:00 09/09/21 04:00 09/09/21 08:40 Laboratory Results - last 24 hr 09/08/21 12:37: SARS-CoV-2 (PCR) Not detected, Influenza A Untype (PCR) Not detected, Influenza Type B (PCR) Not detected 09/09/21 05:09: WBC 10.6, RBC 4.32, Hgb 13.4, Hct 42.5, MCV 98.4, MCH 31.1, MCHC 31.6 L, RDW 13.5, Plt Count 327, MPV 8.0, Neut % (Auto) 76.7, Lymph % (Auto) 15.3, [place] % (Auto) 6.6, Eos % (Auto) 0.7, Baso % (Auto) 0.6, Neut # (Auto) 8.2 H, Lymph # (Auto) 1.6, [place] # (Auto) 0.7, Eos # (Auto) 0.1, Baso # (Auto) 0.1 09/09/21 05:09: Sodium 136, Potassium 3.6, Chloride 106, Carbon Dioxide 26, Anion Gap 7.6, BUN 20 H D, Creatinine 1.00 D, Estimated Creat Clear 47, Estimated GFR 56 L, Est GFR ( Amer) 68 D, Glucose 99 D, Calcium 8.1 L, Total Bilirubin 0.8, AST 38 H D, ALT 18 D, Alkaline Phosphatase 102, Total Protein 6.8, Albumin 4.1, Globulin 2.7, Albumin/Globulin Ratio 1.5 I & O for Last 24 hours: Intake & Output 09/06/21 09/07/21 09/08/21 09/09/21 23:59 23:59 23:59 23:59 Intake Total 1220 / 1220 Balance 1220 / 1220 Weight 50.2 kg 50.2 kg Microbiology Reports for the Last 24 Hours: Microbiology 09/08/21 10:19 Urine,Clean Catch Urine Culture - Preliminary
--- NOTE | 2021-09-11 07:06 | HMH.DCSUM ---
General - General Admission date:: 09/08/21 Discharge date: 09/09/21 HPI HPI: 61-year-old female with history of kidney stones who is recently been seen Dr. Hendrickson for said stones as well as identified renal masses presented to the ER with right flank and suprapubic pain. Patient reports gross hematuria as well. Work-up in the emergency department identified urinary tract infection. White blood cell count was normal and patient denies having any fevers. ER physician was concerned about developing pyelonephritis. Patient was started on IV antibiotics and admitted for observation. This morning she reports improvement in her symptoms. She has not developed any fevers overnight Hospital Course Hospital Course: Patient was admitted. Urology consult was obtained. Patient was felt to be passing stones and had small calcifications within the right mid ureter. Patient felt better after hydration. Decision was made to proceed with outpatient ureteroscopy. Patient was discharged home on the afternoon of September 09 and will follow up with Dr. Hendrickson the following day. Patient was continued on antibiotics to cover urinary tract infection. Urine culture was still pending at the time of discharge Objective Vital signs: Temp Pulse Resp BP Pulse Ox 98.1 F 73 14 114/55 L 93 L 09/09/21 08:00 09/09/21 08:40 09/09/21 04:00 09/09/21 04:00 09/09/21 08:40 DS: Diagnosis - Discharge Diagnosis (1) Cystitis Status: Acute (2) History of kidney stones Status: Acute Discharge Plan - Patient Discharge Instructions ACTIVITY: Continue current activity DIET: continue same diet Patient Instructions: DI for Kidney Stones, DI for Urinary Tract Infection (UTI) - Follow up Plan Follow up with: Alessandro Hendrickson MD [Staff Physician] - 09/10/21 3:00 pm Disposition: Home, Self-Care Condition at discharge:: Improved Home Medications: Home Medications Medication Instructions Recorded Confirmed Type metoclopramide HCl 10 mg tablet 10 mg PO ACHS #120 tab 03/18/19 09/09/21 History Hydrocod/Acet 5/325 mg [[place] 1 tab PO Q4HP PRN #10 tab 08/16/20 09/08/21 Rx 5/325mg tablet] Ketorolac Tromethamine [Toradol 10 mg PO Q6H 09/08/21 09/08/21 History 10mg tablet] levoFLOXacin [Levaquin 500mg 500 mg PO DAILY 09/10/21 History tab] Prescriptions/Medication Reconciliation: Continued metoclopramide HCl 10 mg tablet 10 mg PO ACHS #120 tab Hydrocod/Acet 5/325 mg [[place] 5/325mg tablet] 1 tab PO Q4HP PRN #10 tab PRN Reason: Moderate Pain Ketorolac Tromethamine [Toradol 10mg tablet] 10 mg PO Q6H No Action levoFLOXacin [Levaquin 500mg tab] 500 mg PO DAILY - Problem Reconciliation Problems Reviewed?: Yes
== END 2021-09-09 13:02 | disposition home or self-care (01) ==
LOC: ER 10:25 → 2ND 12:59
PROVIDERS: Admitting Provider Family Medicine; Emergency Provider Student in an Organized Health Care Education/Training Program; PCP Nurse Practitioner Family; Visit Provider Family Medicine
DX: N30.90 Cystitis, unspecified without hematuria (principal); Z87.442 Personal history of urinary calculi; F17.210 Nicotine dependence, cigarettes, uncomplicated; Z79.899 Other long term (current) drug therapy; Z20.822 Contact with and (suspected) exposure to COVID-19
CPT/HCPCS: 36415; 80053; 81001; 85025; 87086; 96365; 96367; 96375; 96376; 99284; C9803; G0378; J2405; J2543; U0003; U0005

== ENCOUNTER 2021-09-10 06:27 | Day surgery (SDC) | payer BC, SELFPAY ==
[2021-09-10] VITALS (9 sets, daily range): BP systolic 118–159; BP diastolic 54–83; PULSE 67–93; RESP 13–18; TEMP 36.6–36.7; O2SAT 93–98; BMI 22.4
--- NOTE | 2021-09-10 07:03 | HMH.ANESCL ---
[facility] Anesthesia Checklist - Patient Identification Patient Identification: Arm Band - Structural Data Admitted From: Home Planned Operative Procedure/s: Ureteroscopy Consent for Planned Operative Procedure(s) Verified: Yes - NPO Status Verified Time NPO: 00:00 - Additional verifications Anesthesia Reactions: Yes (NAUSEATED) - Airway Assessment C-Spine Mobility Assessed: Yes TMJ Mobility Assessed: Yes Dentition: Good Dentition - Neurological Assessment Level of Consciousness: Awake Hx Seizures: No Numbness or tingling in extremities: No - Anesthesia Plan Anesthesia Risk discussed: Yes Anesthesia Plan: Verified ASA Class: II Anesthesia Type: General [facility] History I have reviewed the patient's past medical history: Yes Medical History: Reports:: Kidney Stones Denies:: Carotid Stenosis, Diabetes Mellitus Type 1, Diabetes Mellitus Type 2, Internal Pacemaker, Lung Disease, MRSA, Seizures *Have you ever received a pneumonia vaccine?: No *Have you received a flu vaccine this season?: No Anesthesia experience/problems:: None Laterality Cases: Bilateral: Other Other Surgeries: Yes: No Previous Surgery, Colonoscopy, Other. No: Pacemaker Amputation: No Fractures: No - *Social History Smoking Status: Current every day smoker Tobacco Type: cigarettes # Packs/Day (cigarettes): 1 Alcohol Intake: never Substance Use Type: denies use *Occupational Status:: employed Housing: house Household Members: spouse *Travel in the last 8 weeks: None Family Hx:: Anemia, Diabetes, Hyperlipidemia, Hypertension, Kidney Disease, Stroke
--- NOTE | 2021-09-10 09:08 | XR_ITS ---
FINAL REPORT CLINICAL HISTORY: XRAY FOR STONE EXTRACTION. NO STENT PLACEMENT (OR IMAGE) FLUORO TIME: 2:05 DOSE: 28.25 MGY FINDINGS: FLUOROSCOPY <1 HR Fluoroscopic guidance was provided to the Surgical Services. A single spot film was obtained. There is 2 minutes 5 seconds of fluoroscopy time. IMPRESSION: 2 minutes 5 seconds of fluoroscopy time. Reviewed, Interpreted and Dictated by Ruben Higginbotham III, MD Transcribed by Milan Wiley Authenticated by Ruben Higginbotham III, MD on 09/10/2021 10:39:34 AM [facility]
--- NOTE | 2021-09-10 09:12 | HMH.ANESI ---
[facility] Anesthesia Record Part I Intake, IV Amount: 100 Estimated blood loss (mL): 0 Urine output (mL): 0 Blood Pressure: 118/54 SaO2: 93 Pulse Rate: 67 Respiratory Rate: 13 Temperature: 97.9 F Patient is:: Drowsy, Oral/Nasal airway Stable to PACU at:: 09:10
--- NOTE | 2021-09-10 10:11 | P.OP_ITS ---
Date of procedure: 09/10/21 Pre-op Diagnosis:: Right ureteral stone Post-op Diagnosis:: Right ureteral stone Procedure performed:: Right ureteroscopy, laser lithotripsy of a distal ureteral stone and stone extraction. Surgeon:: Alessandro Hendrickson MD ELECTRICAL PROSPECTING OBSERVER:: Marian Steele Anesthesia: LMA Estimated blood loss (mL): 0 Clinical Note:: 61-year-old white female admitted to the hospital couple of days ago. She has been dealing with some right-sided flank pain and hematuria for 3 [address] scan shows a possible ureteral stone in the distal ureter. Operative findings:: 6 mm stone in the distal ureter on the right side. Operative note:: Patient taken to the operating room after informed consent was obtained. She was placed on the operating table in the supine position and general anesthesia administered. Preoperative antibiotics and sequential compression devices were placed. She was then placed into the dorsal lithotomy position and prepped and draped in the standard surgical fashion. The 22 Gabe passed into the urethra and into the bladder without difficulty. The bladder was examined in a systematic fashion and there is no evidence of mucosal abnormalities, stones, diverticula or trabeculation. The ureteral orifices in their normal anatomic position and of normal shape. A guidewire was passed into the right ureteral orifice and met obstruction about 4 cm proximally. There was a calcification in this area noted on fluoroscopy. We were able to manage the guidewire by the stone and into the right renal pelvis. We then removed the cystoscope and placed the ureteroscope into the bladder and into the right ureter and up to the level of the stone. The 200 nm laser fiber was placed through the ureteroscope and the stone was broken up into smaller fragments. A 1.9 Spanish stone basket then used to extract all the stone fragments. The rigid ureteroscope was removed and the flexible ureteroscope was passed over the guidewire and the mid and proximal ureter were examined to make sure there was no other evidence of stones. No other stones were noted. The ureteroscope was removed and the cystoscope was replaced and the stone fragments were flushed out and sent off for stone analysis. There was clear efflux of urine from the right ureter afterwards and no stent was placed. The bladder drained and Urojet placed into the urethra. Patient tolerated suture well no complications. Condition: stable Disposition: PACU Specimens:: Stone fragments Complications:: None
--- NOTE | 2021-09-10 14:36 | HMH.ANESII ---
[facility] Anesthesia Record Part II Discharge Time: 09:40 Destination: Surgical Day Care (OP Surgery) PACU nurse assessment reviewed?: Yes Patient Condition:: Good Anesthesia Complications:: None Swallowing reflex intact?: Yes Cyanosis?: No Blood Pressure: 140/75 Pulse Rate: 82 Temperature: 98 F Mental Status: Alert & Oriented Pain level:: 0 Nausea and/or vomitting:: None Intake, IV Amount: 0
[2021-09-20 21:48] LABS: Ca oxalate dihydrate 50; Size 4X3
== END 2021-09-10 10:10 | disposition home or self-care (01) ==
LOC: OR 06:28
PROVIDERS: PCP Nurse Practitioner Family; Visit Provider Urology
PROC: (CPT 52352; principal; 2021-09-10 08:00)
DX: N20.1 Calculus of ureter (principal); Z79.899 Other long term (current) drug therapy; Z83.3 Family history of diabetes mellitus; Z82.49 Family history of ischemic heart disease and other diseases of the circulatory system; Z83.438 Family history of other disorder of lipoprotein metabolism and other lipidemia; Z84.1 Family history of disorders of kidney and ureter; Z82.3 Family history of stroke
CPT/HCPCS: 52353; 74018; 76000; 82370; 96374; J2405

== ENCOUNTER → 2021-11-15 09:42 | Outpatient (CLI) | payer BC, SELFPAY ==
--- NOTE | 2021-11-15 09:49 | XR_ITS ---
FINAL REPORT CLINICAL HISTORY: LT SHOULDER PAIN, limited rom no injury or trauma FINDINGS: RIGHT SHOULDER: Three views of the right shoulder were obtained. There is mild acromioclavicular joint and mild glenohumeral joint degenerative change. There is mild inferior subluxation of the left humerus which may reflect a glenohumeral joint effusion. There is no soft tissue abnormality. IMPRESSION: Mild inferior subluxation of the left humerus, may reflect a glenohumeral joint effusion. Reviewed, Interpreted and Dictated by Ruben Higginbotham III, MD Transcribed by Rose Rojas Authenticated by Ruben Higginbotham III, MD on 11/15/2021 12:07:41 PM [facility]
--- NOTE | 2021-11-15 09:49 | XR_ITS ---
FINAL REPORT CLINICAL HISTORY: RT SHOULDER PAIN, limited rom no injury or trauma FINDINGS: RIGHT SHOULDER: 3 views of the right shoulder were obtained. There is no acute fracture or dislocation. There is mild acromioclavicular and mild glenohumeral joint degenerative change. There is no soft tissue abnormality. IMPRESSION: Degenerative change with no acute fracture Reviewed, Interpreted and Dictated by Ruben Higginbotham III, MD Transcribed by Rose Rojas Authenticated by Ruben Higginbotham III, MD on 11/15/2021 12:07:[address] [facility]
== END ==
PROVIDERS: PCP Nurse Practitioner Family; Visit Provider Nurse Practitioner Family
DX: M25.511 Pain in right shoulder (principal); M25.512 Pain in left shoulder
CPT/HCPCS: 73030

== ENCOUNTER 2022-12-13 14:14 | Emergency (ER) | payer OTHER, SELFPAY ==
[2022-12-13 14:22] VITALS: BP 188/85; PULSE 83; RESP 16; TEMP 36.4; O2SAT 94; BMI 24.0
[2022-12-13 14:27] LABS: Microscopic, Urine URINE MICROSCOPIC (MICROSCOPIC)
[2022-12-13 14:31] VITALS: BP 152/68; PULSE 70; RESP 20; O2SAT 96
--- NOTE | 2022-12-13 14:33 | CT_ITS ---
PROCEDURE INFORMATION: Exam: CT Abdomen And Pelvis Without Contrast Exam date and time: 12/13/2022 2:41 PM Age: 62 years old Clinical indication: Abdominal pain; Additional info: L flank pain TECHNIQUE: Imaging protocol: Computed tomography of the abdomen and pelvis without contrast. Radiation optimization: All CT scans at this facility use at least one of these dose optimization techniques: automated exposure control; mA and/or kV adjustment per patient size (includes targeted exams where dose is matched to clinical indication); or iterative reconstruction. REPORTING DATA: Count of CT and Cardiac NM exams in prior 12 months: This patient has received 0 known CTs and 0 known cardiac nuclear medicine studies in the 12 months prior to the current study. COMPARISON: CT ABDOMEN PELVIS W CON 09/06/2021 7:57 AM FINDINGS: Liver: Normal. No mass. Gallbladder and bile ducts: Normal. No calcified stones. No ductal dilation. Pancreas: Normal. No ductal dilation. Spleen: Evidence of prior splenic granulomatous disease.Scattered regions of atherosclerotic vascular calcification within the abdominal aorta and common iliac arteries. Adrenal glands: Normal. No mass. Kidneys and ureters: Bilateral nonobstructing renal calculi. Mild-moderate left hydronephrosis and mild left hydroureter. Demonstration of 2 punctate calculi, each measuring approximately 1.5 mm just distal to the left ureterovesical junction. Stomach and bowel: Colonic diverticulosis. No evidence of diverticulitis. Appendix: No evidence of appendicitis. Intraperitoneal space: Unremarkable. No free air. No significant fluid collection. Vasculature: See Spleen finding. Lymph nodes: Unremarkable. No enlarged lymph nodes. Urinary bladder: Unremarkable as visualized. Reproductive: Unremarkable as visualized. Bones/joints: Lumbar spondylosis with advanced changes of disc degeneration at L2-L3. Retrolisthesis of L5 with respect to S1 again demonstrated. Soft tissues: Unremarkable. IMPRESSION: Findings compatible with partially obstructing calculi at the level of the left ureterovesical junction. Mild-moderate left hydronephrosis and mild left hydroureter.
[2022-12-13 14:36] LABS: Appearance,Urine SL CLOUDY (Clear); Bilirubin,Urine Negative (Negative); Blood, Urine 3+ (Negative); Color,Urine YELLOW (Yellow); Glucose,Urine (UA) Negative (Negative); Ketones,Urine Negative (Negative); Leukocyte Esterase,Urine Negative (Negative); Nitrate,Urine Negative (Negative); Protein,Urine Negative (Negative); Specific Gravity, Urine 1.025 (1.005-1.030); Urobilinogen,Urine 0.2 EU/dl (0.2)
[2022-12-13 15:00] VITALS: BP 177/79; PULSE 76; RESP 20; O2SAT 94
[2022-12-13 15:08] LABS: RBC,Urine 20-50 #/hpf (0-3); WBC,Urine Occasional #/hpf (0-3)
[2022-12-13 15:09] LABS: Squamous Epithelial Cell,Urine Occasional #/hpf (0-5)
[2022-12-13 15:30] VITALS: BP 158/77; PULSE 72; RESP 20; O2SAT 94
--- NOTE | 2022-12-13 15:35 | HMH.EDGENADL ---
Discharge Plan Disposition Patient Disposition: Home, Self-Care Condition: Good Prescriptions Prescriptions: New ketorolac 10 mg tablet 10 mg PO Q6H PRN (Reason: pain) 3 Days Qty: 14 0RF tamsulosin [Flomax] 0.4 mg capsule 0.4 mg PO HS Qty: 30 0RF ondansetron 4 mg tablet,disintegrating 4 mg PO DAILY PRN (Reason: nausea and vomiting) 3 Days Qty: 14 0RF No Action metoclopramide HCl 10 mg tablet 10 mg PO ACHS Qty: 120 Referrals Follow up/Referrals: Karishma Espinal APRN [Primary Care Provider] - See instructions Alessandro Hendrickson MD [Referring] - See instructions Clinical Impressions Clinical Impression: Ureterolithiasis, Flank pain, acute Discharge ED Provider: Jose Angel Junior General Adult HPI General Chief complaint: PAIN Stated complaint: Possible kidney Stones Time Seen by Provider: 12/13/22 14:30 Mode of Arrival: Ambulatory Source of Information: Patient Limitations: No Limitations Description of Symptoms (Recalled from ER Triage Doc. by RN): Presents via POV d/t left flank pain, hematuria, and dysuria x 1 week. Hx of renal stones. 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 History of Present Illness HPI narrative: 62yo F presents to the ER secondary to left flank pain. Symptoms ongoing for a week to week and a half. No fever. Reports history of kidney stones. Related Data Home Medications Medication Instructions Recorded Confirmed metoclopramide HCl 10 mg tablet 10 mg PO ACHS GERD #120 tabs 03/18/19 12/13/22 Previous Rx's Medication Instructions Recorded ketorolac 10 mg tablet 10 mg PO Q6H PRN pain 3 days #14 12/13/22 tabs ondansetron 4 mg disintegrating 4 mg PO DAILY PRN nausea and 12/13/22 tablet vomiting 3 days #14 tabs tamsulosin 0.4 mg capsule (Flomax) 0.4 mg PO HS #30 caps 12/13/22 Allergies Allergy/AdvReac Type Severity Reaction Status Date / Time No Known Allergies Allergy Verified 08/27/21 09:34 [facility] Disclaimer: The information contained in this section may have been updated after the patient was seen, as this information can be updated by other users. Social History Smoking Status: Current every day smoker tobacco type: cigarettes packs per day: 1 second hand exposure: Yes alcohol intake: never substance use type: denies use current occupational status: employed Travel in the last 8 weeks: None household members: spouse housing: house current occupation: [employer] current occupational exposures/hazards: No caffeine: No ROS Obtained: Yes Systems reviewed as appropriate & no additional complaints except as documented Physical Exam General General appearance: alert and in no apparent distress Head Head exam: atraumatic Eye Eye exam: Present normal appearance Neck Neck exam: Present trachea midline Respiratory Respiratory exam: Present normal lung sounds bilaterally Cardiovascular Cardiovascular exam: Present regular rate, normal rhythm and normal heart sounds Abdominal Exam Abdominal exam: Present soft; Absent guarding, rebound or rigidity Extremities Exam Extremities exam: Absent edema Neurological Exam Neurological exam: Present alert, oriented X3 and CN II-XII intact Psychiatric Psychiatric exam: Present normal affect Skin Skin exam: Present warm, dry and intact Medical Decision Making Medical Records Medical records reviewed: Yes I reviewed the patient's medical records. Mina Inquiry Pt receiving controlled substance: No Vital Signs: 12/13/22 14:22 12/13/22 14:31 12/13/22 15:00 Temperature 97.6 F Temperature Source Oral Pulse Rate 70 76 Pulse Rate [Right] 83 Respiratory Rate 16 20 20 Blood Pressure 152/68 H 177/79 H Blood Pressure [Right Arm] 188/85 H Blood Pressure Mean 96 111 Blood Pressure Mean [Right Arm] 119 02 Sat by Pulse Oximetry 94 L 96 94 L Oxygen Delivery Method Room Air Lab Data Lab results reviewed: Yes I reviewed the sarabjit
[2022-12-13 15:55] VITALS: BP 158/77; PULSE 77; RESP 17; TEMP 37; O2SAT 94
== END 2022-12-13 16:02 | disposition home or self-care (01) ==
PROVIDERS: Emergency Provider Family Medicine; PCP Nurse Practitioner Family
DX: N20.1 Calculus of ureter (principal); N13.30 Unspecified hydronephrosis; R31.9 Hematuria, unspecified; F17.210 Nicotine dependence, cigarettes, uncomplicated
CPT/HCPCS: 74176; 81001; 99284

== ENCOUNTER → 2022-12-30 12:17 | Outpatient (CLI) | payer OTHER, SELFPAY ==
--- NOTE | 2022-12-30 12:21 | XR_ITS ---
FINAL REPORT CLINICAL HISTORY: COUGH, same cough for a while now, not going away even after medication. COMPARISON: None FINDINGS: There is no evidence of effusion or other pleural disease. The mediastinum has a normal appearance. There is a nodular opacity in the right suprahilar region overlying the right anterior 2nd rib. A moderate thoracic scoliosis is identified. The cardiac silhouette is unremarkable. IMPRESSION: Nodular opacity in the right upper lobe, recommend contrast enhanced CT of the chest for further evaluation. Reviewed, Interpreted and Dictated by Juan Mohan MD Transcribed by Maday Ledezma Authenticated and [facility]
== END ==
PROVIDERS: PCP Nurse Practitioner Family; Visit Provider Nurse Practitioner Family
DX: R05.1 Acute cough (principal)
CPT/HCPCS: 71046

== ENCOUNTER → 2023-01-21 11:52 | Outpatient (CLI) | payer OTHER, SELFPAY ==
--- NOTE | 2023-01-21 11:56 | XR_ITS ---
FINAL REPORT CLINICAL HISTORY: sob cough smoker COMPARISON: None FINDINGS: Two views of the chest were obtained. The heart size and pulmonary vascularity are within normal limits. The mediastinum is normal. There is a 3 cm focal rounded opacity in the right upper lobe, worrisome for neoplasm versus focal infiltrate. Correlation with chest CT is suggested. There is mild dextroscoliosis of the thoracic spine. There is no pneumothorax. IMPRESSION: 3 cm focal rounded opacity in the right upper lobe, worrisome for neoplasm. Correlation with chest CT is suggested. Reviewed, Interpreted and Dictated by Ruben Higginbotham III, MD Transcribed by Maday Ledezma Authenticated and [facility]
[2023-01-21 12:47] LABS: Basophils % 0.6 % (0.1-2.0); Eosinophils # 0.1 K/mm3 (0.0-0.4); Eosinophils % 1.5 % (0.1-12.0); Hematocrit 46.8 % (37.0-47.0); Hemoglobin 14.7 g/dL (12.2-16.2); Lymphocytes # 1.4 K/mm3 (0.7-4.5); Lymphocytes % 21.9 % (10-50); Mean Corpuscular HGB Conc 31.3 g/dL (31.8-35.4); Mean Corpuscular Hemoglobin 29.8 pg (27.0-31.2); Mean Corpuscular Volume 95.1 fl (81-99); Mean Platelet Volume 7.4 fl (7.4-10.4); Monocytes # 0.3 K/mm3 (0.1-1.0); Monocytes % 4.6 % (1.7-9.3); Neutrophils # 4.5 K/mm3 (1.8-7.8); Neutrophils % 71.4 % (37.0-80.0); Platelet Count 290 K/mm3 (142-424); Red Blood Count 4.93 M/mm3 (4.20-5.40); White Blood Count 6.4 K/mm3 (4.8-10.8)
[2023-01-21 13:54] LABS: C-Reactive Protein 5.4 mg/L (0-4)
[2023-01-24 14:17] LABS: QuantiFERON-TB Gold Plus Negative (Negative)
[2023-01-27 18:00] LABS: Aspergillus flavus Negative (Neg:<1:1); Aspergillus fumigatus Negative (Neg:<1:1); Aspergillus niger Negative (Neg:<1:1); Blastomyces Antibody Negative (Neg:<1:1)
== END ==
PROVIDERS: PCP Nurse Practitioner Family; Visit Provider Internal Medicine Pulmonary Disease
DX: R06.02 Shortness of breath (principal); R06.09 Other forms of dyspnea; J45.909 Unspecified asthma, uncomplicated; J84.10 Pulmonary fibrosis, unspecified
CPT/HCPCS: 36415; 71046; 85025; 86140; 86480; 86606; 86612

== ENCOUNTER → 2023-01-23 11:21 | Outpatient (CLI) | payer OTHER, SELFPAY | PROVIDERS: PCP Nurse Practitioner Family; Visit Provider Internal Medicine Pulmonary Disease | DX: J18.9 Pneumonia, unspecified organism (principal) | CPT/HCPCS: 87070; 87077; 87116; 87186; 87205; 87206; 87220 ==

== ENCOUNTER → 2023-02-25 14:06 | Outpatient (CLI) | payer OTHER, SELFPAY ==
--- NOTE | 2023-02-25 14:10 | XR_ITS ---
FINAL REPORT CLINICAL HISTORY: RUL infiltrate follow up COMPARISON: 01/21/2023 FINDINGS: TWO-VIEW CHEST The heart size is normal. The mediastinum is normal. There is a persistent right upper lobe 27 mm nodule which is stable. Findings are worrisome for neoplasm. There is no pneumothorax. IMPRESSION: Right upper lobe nodule worrisome for neoplasm. Recommend chest CT and or PET-CT follow-up. Reviewed, Interpreted and Dictated by Ruben Higginbotham III, MD Transcribed by Rose Rojas Authenticated and [facility]
== END ==
PROVIDERS: PCP Nurse Practitioner Family; Visit Provider Internal Medicine Pulmonary Disease
DX: J18.9 Pneumonia, unspecified organism (principal)
CPT/HCPCS: 71046

== ENCOUNTER → 2023-02-26 13:44 | Outpatient (CLI) | payer OTHER, SELFPAY ==
[2023-02-28 10:19] LABS: AFP, Tumor Marker <1.8 ng/mL (0.0-9.2); CEA 3.8 ng/mL (0.0-4.7)
== END ==
PROVIDERS: PCP Nurse Practitioner Family; Visit Provider Nurse Practitioner
DX: R13.10 Dysphagia, unspecified (principal); R11.10 Vomiting, unspecified; R14.0 Abdominal distension (gaseous); F17.210 Nicotine dependence, cigarettes, uncomplicated
CPT/HCPCS: 36415; 82105; 82378

== ENCOUNTER → 2023-03-16 09:05 | Outpatient (CLI) | payer OTHER, SELFPAY ==
--- NOTE | 2023-03-16 09:05 | FL_ITS ---
FINAL REPORT CLINICAL HISTORY: . 1:07 fluoro time dysphagia FINDINGS: ESOPHAGRAM HISTORY: Dysphagia. PROCEDURE: The patient ingested barium. Effervescent crystals were also administered. Spot and overhead films were obtained. Fluoroscopy time: 1 minute 33 seconds. 21 radiographs were obtained. FINDINGS: No esophageal stricture is identified. Esophageal dysmotility was demonstrated throughout the exam. There is a small hiatal hernia with gastroesophageal reflux. A 13 mm barium tablet passes through the esophagus and into the stomach without delay. IMPRESSION: Small sliding-type hiatal hernia with gastroesophageal reflux. Esophageal dysmotility. Films reviewed , interpreted and dictated by Dr. Hatch. Transcribed by London Tapia PA-C. Reviewed, Interpreted and Dictated by Kraig Hatch MD Transcribed by MARY ANNE Murrieta Authenticated and [facility]
== END ==
PROVIDERS: PCP Nurse Practitioner Family; Visit Provider Nurse Practitioner
DX: R13.10 Dysphagia, unspecified (principal); R11.10 Vomiting, unspecified; R14.0 Abdominal distension (gaseous)
CPT/HCPCS: 74220

== ENCOUNTER → 2023-04-29 12:32 | Outpatient (CLI) | payer OTHER, SELFPAY ==
[2023-04-29 10:54] LABS: Basophils # 0.1 K/mm3 (0-0.2); Basophils % 0.7 % (0.1-2.0); Eosinophils # 0.1 K/mm3 (0.0-0.4); Eosinophils % 1.4 % (0.1-12.0); Hematocrit 46.7 % (37.0-47.0); Hemoglobin 14.8 g/dL (12.2-16.2); Lymphocytes # 1.3 K/mm3 (0.7-4.5); Lymphocytes % 16.8 % (10-50); Mean Corpuscular HGB Conc 31.7 g/dL (31.8-35.4); Mean Corpuscular Hemoglobin 29.4 pg (27.0-31.2); Mean Corpuscular Volume 92.8 fl (81-99); Mean Platelet Volume 8.3 fl (7.4-10.4); Monocytes # 0.4 K/mm3 (0.1-1.0); Monocytes % 4.8 % (1.7-9.3); Neutrophils # 5.8 K/mm3 (1.8-7.8); Neutrophils % 76.3 % (37.0-80.0); Platelet Count 372 K/mm3 (142-424); Red Blood Count 5.04 M/mm3 (4.20-5.40); White Blood Count 7.6 K/mm3 (4.8-10.8)
[2023-04-29 12:37] LABS: Alanine Aminotransferase 19 U/L (12-78); Albumin Level 4.6 g/dl (3.5-5.0); Albumin/Globulin Ratio 1.7 (1.1-1.8); Alkaline Phosphatase 139 U/L (38-126); Anion Gap 12.6 mEq/L (5-15); Aspartate Amino Transferase 25 U/L (14-36); Bilirubin,Total 0.4 mg/dl (0.2-1.3); Blood Urea Nitrogen 15 mg/dl (7-17); Calcium 9.8 mg/dl (8.4-10.2); Carbon Dioxide 29 mmol/L (22.0-30.0); Chloride 105 mmol/L (98-107); Chol/HDL Ratio 4.4 (1-3.5); Cholesterol 255 mg/dl (140-200); Estimated Glomerular Filt Rate 101 ml/min (>60); GFR (African American) 123 ML/MIN (>60); Globulin 2.7 g/dL (1.3-3.2); Glucose 95 mg/dl (74-100); HDL Cholesterol 58 mg/dl (40-60); Potassium 4.6 mmoL/L (3.5-5.1); Sodium 142 mmol/L (136-145); Total Protein,Serum 7.3 g/dl (6.3-8.2); Triglycerides 234 mg/dl (30-150); VLDL Cholesterol 47 mg/dL (0-40)
[2023-04-29 13:07] LABS: Thyroid Stimulating Hormone 1.64 uIU/mL (0.465-4.68)
== END ==
PROVIDERS: PCP Nurse Practitioner Family; Visit Provider Nurse Practitioner Family
DX: R14.0 Abdominal distension (gaseous) (principal); Z13.29 Encounter for screening for other suspected endocrine disorder; Z13.220 Encounter for screening for lipoid disorders; Z79.899 Other long term (current) drug therapy
CPT/HCPCS: 80053; 80061; 84443; 85025

== ENCOUNTER 2023-05-14 10:28 | Day surgery (SDC) | payer OTHER, SELFPAY ==
[2023-04-23 10:53] VITALS: BMI 23.8
[2023-05-14 10:53] VITALS: BP 136/71; PULSE 79; RESP 18; TEMP 36.6; O2SAT 95
--- NOTE | 2023-05-14 10:58 | P.PNANES_ITS ---
[facility] Disclaimer: The information contained in this section may have been updated after the patient was seen, as this information can be updated by other users. Medical History Abnormal high resolution computed tomography of chest Dyspnea on exertion Nodule of right lung Pneumonia Smoking greater than 30 pack years Surgical History History of colonoscopy Hx of kidney removal Family History Other COPD (chronic obstructive pulmonary disease) Diabetes Hypertension Social History Smoking Status: Current every day smoker tobacco type: cigarettes packs per day: 1 second hand exposure: Yes alcohol intake: never substance use type: denies use current occupational status: retired Travel in the last 8 weeks: None household members: spouse housing: house current occupation: [email or web address] current occupational exposures/hazards: No caffeine: No [facility] Anesthesia Checklist Patient Identification Patient Identification: Arm Band and Verbal (Name & ) Structural Data Admitted From: Home Planned Operative Procedure/s: EGD Consent for Planned Operative Procedure(s) Verified: Yes NPO Status Verified Time NPO: 00:00 Additional verifications Anesthesia Reactions: Yes (NAUSEATED/drowsiness) Airway Assessment Mallampati Score:: Class II C-Spine Mobility Assessed: Yes TMJ Mobility Assessed: Yes Dentition: Good Dentition Neurological Assessment Level of Consciousness: Awake Hx Seizures: No Numbness or tingling in extremities: No Anesthesia Plan Anesthesia Risk discussed: Yes Anesthesia Plan: Verified ASA Class: III Anesthesia Type: MAC
[2023-05-14 11:09] VITALS: O2SAT 99
[2023-05-14 11:22] VITALS: BP 100/51; PULSE 89; RESP 16; TEMP 36.8; O2SAT 93
--- NOTE | 2023-05-14 11:22 | HMH.SCOPE ---
Procedure: Date: 05/14/23 Patient Date of :: 1960 Procedure Performed:: EGD & biopsies, bougie dilation Indications:: Dysphagia, dyspepsia Performing Provider:: Braydon Steinberg MD Referring Provider:: Juanis Steinberg APRN Sedation:: Propofol Procedure:: The gastroscope was gently passed through the incisoral orifice into the oral cavity and under direct visualization the esophagus was intubated. The endoscope was passed down the esophagus, through the stomach, and into the duodenum. Color, texture, mucosa, and anatomy of the esophagus, stomach, and duodenum were carefully examined with the scope. Findings:: Oropharynx: normal Esophagus: normal, empiric bougie dilation performed with 56F dilator for treatment of dysphagia EG Junction: intact at 40 cm Cardia: normal Fundus: normal Body: normal, random biopsies obtained for evaluation of h.pylori Antrum: normal Duodenal bulb: normal Duodenum (second and third portion): normal Impression: Symptomatic dysphagia treated with bougie dilation Specimens:: gastric Recommendations:: F/U EGD dilation in about THREE years or so. F/U with GI Clinic. Complications:: None Estimated blood obtained (mL): 0 Colonoscopy Component Colonoscopy Component Was a colonoscopy performed during today's procedure?: No
[2023-05-14 11:32] VITALS: BP 92/63; PULSE 88; RESP 16; O2SAT 98
[2023-05-14 11:42] VITALS: BP 116/64; PULSE 75; RESP 16; O2SAT 98
[2023-05-14 11:52] VITALS: BP 121/56; PULSE 74; RESP 16; O2SAT 97
== END 2023-05-14 12:00 | disposition home or self-care (01) ==
PROVIDERS: PCP Nurse Practitioner Family; Visit Provider Internal Medicine Gastroenterology
PROC: 0DJ08ZZ Inspection of Upper Intestinal Tract, Via Natural or Artificial Opening Endoscopic (ICD-10-PCS; CPT 43235; principal; 2023-05-14 11:30)
DX: R13.10 Dysphagia, unspecified (principal); K31.9 Disease of stomach and duodenum, unspecified; R10.13 Epigastric pain
CPT/HCPCS: 43239; 43248

== ENCOUNTER → 2023-06-01 12:03 | Outpatient (CLI) | payer OTHER, SELFPAY ==
[2023-06-01 11:30] LABS: Alanine Aminotransferase 28 U/L (12-78); Albumin Level 4.5 g/dl (3.5-5.0); Albumin/Globulin Ratio 1.7 (1.1-1.8); Alkaline Phosphatase 137 U/L (38-126); Aspartate Amino Transferase 33 U/L (14-36); Bilirubin,Total 0.4 mg/dl (0.2-1.3); Blood Urea Nitrogen 11 mg/dl (7-17); Calcium 9.9 mg/dl (8.4-10.2); Carbon Dioxide 28 mmol/L (22.0-30.0); Chloride 103 mmol/L (98-107); Estimated Glomerular Filt Rate 125 ml/min (>60); GFR (African American) 151 ML/MIN (>60); Globulin 2.7 g/dL (1.3-3.2); Glucose 93 mg/dl (74-100); Sodium 140 mmol/L (136-145); Total Protein,Serum 7.2 g/dl (6.3-8.2)
== END ==
PROVIDERS: PCP Nurse Practitioner Family; Visit Provider Nurse Practitioner Family
DX: R74.8 Abnormal levels of other serum enzymes (principal)
CPT/HCPCS: 80053

== ENCOUNTER → 2023-06-23 08:07 | Outpatient (CLI) | payer OTHER, SELFPAY ==
[2023-06-23 17:58] LABS: Alanine Aminotransferase 32 U/L (12-78); Albumin Level 4.4 g/dl (3.5-5.0); Albumin/Globulin Ratio 1.6 (1.1-1.8); Alkaline Phosphatase 113 U/L (38-126); Anion Gap 14.1 mEq/L (5-15); Aspartate Amino Transferase 31 U/L (14-36); Bilirubin,Total 0.4 mg/dl (0.2-1.3); Blood Urea Nitrogen 17 mg/dl (7-17); Calcium 9.1 mg/dl (8.4-10.2); Carbon Dioxide 27 mmol/L (22.0-30.0); Chloride 102 mmol/L (98-107); Estimated Glomerular Filt Rate 101 ml/min (>60); GFR (African American) 122 ML/MIN (>60); Globulin 2.7 g/dL (1.3-3.2); Glucose 79 mg/dl (74-100); Potassium 4.1 mmoL/L (3.5-5.1); Sodium 139 mmol/L (136-145); Total Protein,Serum 7.1 g/dl (6.3-8.2)
[2023-06-23 18:00] LABS: Basophils # 0.1 K/mm3 (0-0.2); Basophils % 0.7 % (0.1-2.0); Eosinophils # 0.2 K/mm3 (0.0-0.4); Hematocrit 43.9 % (37.0-47.0); Hemoglobin 13.8 g/dL (12.2-16.2); Lymphocytes # 1.6 K/mm3 (0.7-4.5); Lymphocytes % 20.2 % (10-50); Mean Corpuscular HGB Conc 31.5 g/dL (31.8-35.4); Mean Corpuscular Hemoglobin 31.1 pg (27.0-31.2); Mean Corpuscular Volume 98.6 fl (81-99); Mean Platelet Volume 8.9 fl (7.4-10.4); Monocytes # 0.4 K/mm3 (0.1-1.0); Monocytes % 4.9 % (1.7-9.3); Neutrophils # 5.5 K/mm3 (1.8-7.8); Neutrophils % 72.1 % (37.0-80.0); Platelet Count 455 K/mm3 (142-424); Red Blood Count 4.45 M/mm3 (4.20-5.40); Red Cell Distribution Width 14.1 % (11.5-17.5); White Blood Count 7.7 K/mm3 (4.8-10.8)
[2023-06-23 18:26] LABS: Thyroid Stimulating Hormone 1.27 uIU/mL (0.465-4.68)
== END ==
LOC: LAB.DROPOF 06-24 08:09
PROVIDERS: PCP Nurse Practitioner Family; Visit Provider Nurse Practitioner Family
DX: R42 Dizziness and giddiness (principal)
CPT/HCPCS: 80053; 84443; 85025

== ENCOUNTER 2023-06-29 15:16 | Emergency (ER) | payer OTHER, SELFPAY ==
[2023-06-29 15:35] VITALS: BP 155/88; PULSE 93; RESP 20; TEMP 36.7; O2SAT 96; BMI 25.0
--- NOTE | 2023-06-29 15:51 | CT_ITS ---
FINAL REPORT CLINICAL HISTORY: hematuria abd pain, h/o stones COMPARISON: 12/13/2022 FINDINGS: Axial CT images of the abdomen and pelvis were obtained without intravenous contrast. Coronal and sagittal reformatted images were also obtained.This study was performed with techniques to keep radiation doses as low as reasonably achievable (ALARA). Individualized dose reduction techniques using automated exposure control or adjustment of mA and/or kV according to the patient's size were employed. Abdomen: There is mild scarring present in the lung bases. Numerous nonobstructing bilateral renal stones are present, measuring up to 5 mm on the right side and 7 mm on the left side. There is mild right renal scarring present. There are low-attenuation masses in the upper pole of the left kidney, likely cysts. There is mild left hydronephrosis and hydroureter present secondary to a 4 mm stone in the distal left ureter several centimeters proximal to the ureterovesicular junction. There is fatty infiltration of the liver once again identified. The spleen and pancreas have an unremarkable, unenhanced appearance. No mass or adenopathy is seen. No inflammatory process is identified. Pelvis: Images of the pelvis reveal a normal appendix. There is diverticulosis of the descending and sigmoid portions of the colon. A small uterine calcification is noted, stable. No mass or abnormal fluid collection is identified. IMPRESSION: Mild left hydronephrosis and hydroureter, secondary to a 4 mm stone in the distal left ureter several centimeters proximal to the UVJ. Multiple other renal stones are identified in the kidneys bilaterally as described. Reviewed, Interpreted and Dictated by Ruben Higginbotham III, MD Transcribed by Maday Ledezma Authenticated and [facility]
--- NOTE | 2023-06-29 15:52 | HMH.EDGENADL ---
Discharge Plan Disposition Patient Disposition: Home, Self-Care Prescriptions Prescriptions: New tamsulosin [Flomax] 0.4 mg capsule 0.4 mg PO DAILY 7 Days Qty: 7 0RF ibuprofen 600 mg tablet 600 mg PO Q8H PRN (Reason: pain) 7 Days Qty: 21 0RF ondansetron 4 mg tablet,disintegrating 4 mg PO Q6H PRN (Reason: nausea and vomiting) 5 Days Qty: 20 0RF hydrocodone-acetaminophen 5-325 mg tablet 1 tab PO Q6H PRN (Reason: pain) 3 Days Qty: 12 0RF No Action metoclopramide HCl 10 mg tablet 10 mg PO ACHS Qty: 120 Referrals Follow up/Referrals: Karishma Espinal APRN [Primary Care Provider] - See instructions Activity Restrictions/Add. Instructions Additional Instructions/Restrictions: You have a 4 mm mid ureteral stone with obstruction. Return with intractable pain or nausea high fevers or other concerns. Otherwise you may follow-up with a urologist the stone is most likely going to pass on its own however. Clinical Impressions Clinical Impression: Abdominal pain, Hematuria, Hydronephrosis concurrent with and due to calculi of kidney and ureter Instructions Patient Instructions: DI for Acute Abdominal Pain Discharge ED Provider: Alejandra Lopez General Adult HPI General Chief complaint: Abdominal Pain Stated complaint: poss kidney stone Time Seen by Provider: 06/29/23 15:49 Mode of Arrival: Ambulatory Source of Information: Patient Limitations: No Limitations Description of Symptoms (Recalled from ER Triage Doc. by RN): pt to ed c/o lower abd pain, vomiting and blood in urine. pt states she has a hx of kidney stones and this episode feels similar. History of Present Illness HPI narrative: Patient is a 63-year-old female presenting today with I think I am having kidney stones. She states she has a history of kidney stones typically she has flank pain but today she has abdominal discomfort that is coming and going severe at times and some hematuria. She believes this is similar to kidney stone she is having in the past. Denies any nausea or vomiting denies any constipation diarrhea vaginal bleeding vaginal discharge or any other urinary symptoms. Related Data Home Medications Medication Instructions Recorded Confirmed metoclopramide HCl 10 mg tablet 10 mg PO ACHS GERD #120 tabs 03/18/19 06/23/23 Previous Rx's Medication Instructions Recorded hydrocodone 5 mg-acetaminophen 325 1 tab PO Q6H PRN pain 3 days #12 06/29/23 mg tablet tabs ibuprofen 600 mg tablet 600 mg PO Q8H PRN pain 7 days #21 06/29/23 tabs ondansetron 4 mg disintegrating 4 mg PO Q6H PRN nausea and 06/29/23 tablet vomiting 5 days #20 tabs tamsulosin 0.4 mg capsule (Flomax) 0.4 mg PO DAILY 7 days #7 caps 06/29/23 Allergies Allergy/AdvReac Type Severity Reaction Status Date / Time No Known Allergies Allergy Verified 06/23/23 09:44 [facility] Disclaimer: The information contained in this section may have been updated after the patient was seen, as this information can be updated by other users. Medical History Abnormal high resolution computed tomography of chest Dyspnea on exertion Nodule of right lung Pneumonia Smoking greater than 30 pack years Surgical History History of colonoscopy Hx of kidney removal Family History Other COPD (chronic obstructive pulmonary disease) Diabetes Hypertension Social History Smoking Status: Current every day smoker tobacco type: cigarettes packs per day: 1 second hand exposure: Yes alcohol intake: never substance use type: denies use current occupational status: retired Travel in the last 8 weeks: None household members: spouse housing: house current occupation: [employer] current occupational exposures/hazards: No caffeine: No ROS Obtained: Yes All systems r
[2023-06-29 16:08] LABS: Basophils % 0.4 % (0.1-2.0); Eosinophils # 0.1 K/mm3 (0.0-0.4); Hematocrit 42.6 % (37.0-47.0); Lymphocytes # 1.3 K/mm3 (0.7-4.5); Lymphocytes % 14.9 % (10-50); Mean Corpuscular HGB Conc 32.8 g/dL (31.8-35.4); Mean Corpuscular Hemoglobin 31.2 pg (27.0-31.2); Mean Corpuscular Volume 95.2 fl (81-99); Mean Platelet Volume 7.5 fl (7.4-10.4); Monocytes # 0.3 K/mm3 (0.1-1.0); Neutrophils # 6.8 K/mm3 (1.8-7.8); Neutrophils % 79.6 % (37.0-80.0); Platelet Count 355 K/mm3 (142-424); Red Blood Count 4.48 M/mm3 (4.20-5.40); Red Cell Distribution Width 14.3 % (11.5-17.5); White Blood Count 8.5 K/mm3 (4.8-10.8)
[2023-06-29 16:16] LABS: Alanine Aminotransferase 37 U/L (12-78); Alkaline Phosphatase 131 U/L (38-126); Aspartate Amino Transferase 35 U/L (14-36); Bilirubin,Total 0.4 mg/dl (0.2-1.3); Blood Urea Nitrogen 16 mg/dl (7-17); Calcium 9.1 mg/dl (8.4-10.2); Carbon Dioxide 25 mmol/L (22.0-30.0); Chloride 106 mmol/L (98-107); Creatinine Clearance Estimated 49 mL/min (50-200); Estimated Glomerular Filt Rate 101 ml/min (>60); GFR (African American) 122 ML/MIN (>60); Glucose 137 mg/dl (74-100); Lipase 80 U/L (23-300); Total Protein,Serum 7.6 g/dl (6.3-8.2)
[2023-06-29 16:30] VITALS: BP 140/75; PULSE 93; O2SAT 93
[2023-06-29 16:52] LABS: Sodium 139 mmol/L (136-145)
[2023-06-29 16:53] LABS: Albumin Level 4.6 g/dl (3.5-5.0); Albumin/Globulin Ratio 1.5 (1.1-1.8); Anion Gap 11.4 mEq/L (5-15); Potassium 3.4 mmoL/L (3.5-5.1)
[2023-06-29 17:00] VITALS: BP 138/70; PULSE 94; O2SAT 92
[2023-06-29 17:30] VITALS: BP 136/71; PULSE 90; O2SAT 94
[2023-06-29 18:00] VITALS: BP 126/57; PULSE 95; RESP 22; O2SAT 94
[2023-06-29 18:11] VITALS: BP 126/57; PULSE 95; RESP 18; TEMP 36.7; O2SAT 95
[2023-06-29 18:49] LABS: Appearance,Urine CLEAR (Clear); Blood, Urine 3+ (Negative); Color,Urine YELLOW (Yellow); Glucose,Urine (UA) TRACE (Negative); Ketones,Urine TRACE (Negative); Leukocyte Esterase,Urine TRACE (Negative); Microscopic, Urine URINE MICROSCOPIC (MICROSCOPIC); Nitrate,Urine POSITIVE (Negative); PH,Urine 6.5 (5.0-8.5); Protein,Urine 2+ (Negative); Specific Gravity, Urine >= 1.030 (1.005-1.030)
[2023-06-29 18:56] LABS: Bilirubin,Urine 1+ (Negative)
[2023-06-29 19:14] LABS: Bacteria,Urine Trace /lpf; Squamous Epithelial Cell,Urine Occasional #/hpf (0-5); WBC,Urine Occasional #/hpf (0-3)
== END 2023-06-29 18:16 | disposition home or self-care (01) ==
PROVIDERS: Emergency Provider Student in an Organized Health Care Education/Training Program; PCP Nurse Practitioner Family
DX: N13.2 Hydronephrosis with renal and ureteral calculous obstruction (principal); R31.9 Hematuria, unspecified; R10.30 Lower abdominal pain, unspecified; R11.10 Vomiting, unspecified; F17.210 Nicotine dependence, cigarettes, uncomplicated
CPT/HCPCS: 74176; 80053; 81001; 83690; 85025; 96361; 96374; 96375; 99285; J2405

== ENCOUNTER → 2023-07-15 13:44 | Outpatient (CLI) | payer OTHER, SELFPAY ==
[2023-07-15 14:40] LABS: Basophils % 0.3 % (0.1-2.0); Eosinophils # 0.1 K/mm3 (0.0-0.4); Eosinophils % 0.8 % (0.1-12.0); Hemoglobin 13.2 g/dL (12.2-16.2); Lymphocytes # 1.1 K/mm3 (0.7-4.5); Lymphocytes % 13.7 % (10-50); Mean Corpuscular HGB Conc 32.9 g/dL (31.8-35.4); Mean Corpuscular Hemoglobin 31.4 pg (27.0-31.2); Mean Corpuscular Volume 95.4 fl (81-99); Mean Platelet Volume 7.5 fl (7.4-10.4); Monocytes # 0.4 K/mm3 (0.1-1.0); Monocytes % 4.6 % (1.7-9.3); Neutrophils # 6.4 K/mm3 (1.8-7.8); Neutrophils % 80.6 % (37.0-80.0); Platelet Count 306 K/mm3 (142-424); Red Blood Count 4.19 M/mm3 (4.20-5.40); Red Cell Distribution Width 13.6 % (11.5-17.5); White Blood Count 7.9 K/mm3 (4.8-10.8)
[2023-07-15 15:21] LABS: Chloride 107 mmol/L (98-107)
[2023-07-15 15:22] LABS: Potassium 3.6 mmoL/L (3.5-5.1); Sodium 142 mmol/L (136-145)
[2023-07-15 15:24] LABS: Alanine Aminotransferase 22 U/L (12-78); Aspartate Amino Transferase 30 U/L (14-36); Blood Urea Nitrogen 20 mg/dl (7-17); Estimated Glomerular Filt Rate 63 ml/min (>60); GFR (African American) 77 ML/MIN (>60)
[2023-07-15 15:25] LABS: Albumin Level 4.2 g/dl (3.5-5.0); Albumin/Globulin Ratio 1.7 (1.1-1.8); Alkaline Phosphatase 129 U/L (38-126); Anion Gap 11.6 mEq/L (5-15); Bilirubin,Total 0.6 mg/dl (0.2-1.3); Calcium 8.7 mg/dl (8.4-10.2); Carbon Dioxide 27 mmol/L (22.0-30.0); Globulin 2.5 g/dL (1.3-3.2); Glucose 82 mg/dl (74-100); Total Protein,Serum 6.7 g/dl (6.3-8.2)
== END ==
PROVIDERS: PCP Nurse Practitioner Family; Visit Provider Nurse Practitioner Family
DX: D75.839 Thrombocytosis, unspecified (principal); E87.6 Hypokalemia
CPT/HCPCS: 80053; 85025

== ENCOUNTER 2023-10-12 12:48 | Outpatient (CLI) | payer OTHER, SELFPAY ==
[2023-10-12 13:37] LABS: Chloride 107 mmol/L (98-107)
[2023-10-12 13:38] LABS: Potassium 4.1 mmoL/L (3.5-5.1); Sodium 140 mmol/L (136-145)
[2023-10-12 13:40] LABS: Alanine Aminotransferase 34 U/L (12-78); Amylase 60 U/L (30-110); Aspartate Amino Transferase 31 U/L (14-36); Blood Urea Nitrogen 16 mg/dl (7-17); Estimated Glomerular Filt Rate 101 ml/min (>60); GFR (African American) 122 ML/MIN (>60)
[2023-10-12 13:41] LABS: Albumin Level 4.3 g/dl (3.5-5.0); Albumin/Globulin Ratio 1.9 (1.1-1.8); Alkaline Phosphatase 141 U/L (38-126); Anion Gap 10.1 mEq/L (5-15); Bilirubin,Total 0.5 mg/dl (0.2-1.3); Calcium 9.8 mg/dl (8.4-10.2); Carbon Dioxide 27 mmol/L (22.0-30.0); Globulin 2.3 g/dL (1.3-3.2); Glucose 91 mg/dl (74-100); Lipase 82 U/L (23-300); Total Protein,Serum 6.6 g/dl (6.3-8.2)
[2023-10-12 13:47] LABS: C-Reactive Protein 5.4 mg/L (0-4)
[2023-10-12 14:11] LABS: Thyroid Stimulating Hormone 1.53 uIU/mL (0.465-4.68)
[2023-10-13 08:56] LABS: Triiodothyronine (T3) Free 3.6 pg/mL (2.0-4.4)
== END 2023-10-12 23:59 ==
LOC: LAB.DROPOF 12:48
PROVIDERS: PCP Nurse Practitioner Family; Visit Provider Nurse Practitioner Family
DX: R14.0 Abdominal distension (gaseous) (principal); E87.6 Hypokalemia; R10.9 Unspecified abdominal pain; R79.82 Elevated C-reactive protein (CRP); R63.5 Abnormal weight gain; Z68.26 Body mass index [BMI] 26.0-26.9, adult
CPT/HCPCS: 80053; 82150; 83690; 84443; 84481; 86140

== ENCOUNTER 2024-01-20 10:55 | Outpatient (CLI) | payer OTHER, SELFPAY ==
--- NOTE | 2024-01-20 11:17 | ECG_ITS ---
APPROVED REPORT Exam: Resting ECG HR:71 bpm ECG Measurements Heart Rate 71 AXES [place] 159 P 57 QRSd 83 QRS -11 QT 362 T 39 QTc 385 Conclusion SINUS RHYTHM NORMAL ECG UNCONFIRMED REPORT Electronically signed by : Samuel Moy MD 01/22/2024 08:46:50
[2024-01-20 11:38] LABS: Chloride 107 mmol/L (98-107); Potassium 3.4 mmoL/L (3.5-5.1); Sodium 142 mmol/L (136-145)
[2024-01-20 11:40] LABS: Alanine Aminotransferase 35 U/L (12-78); Alkaline Phosphatase 123 U/L (38-126); Anion Gap 10.4 mEq/L (5-15); Aspartate Amino Transferase 35 U/L (14-36); Bilirubin,Total 0.8 mg/dl (0.2-1.3); Blood Urea Nitrogen 11 mg/dl (7-17); Carbon Dioxide 28 mmol/L (22.0-30.0); Estimated Glomerular Filt Rate 101 ml/min (>60); GFR (African American) 122 ML/MIN (>60)
[2024-01-20 11:41] LABS: Albumin Level 4.5 g/dl (3.5-5.0); Albumin/Globulin Ratio 1.8 (1.1-1.8); Calcium 9.8 mg/dl (8.4-10.2); Chol/HDL Ratio 5.1 (1-3.5); Cholesterol 255 mg/dl (140-200); Globulin 2.5 g/dL (1.3-3.2); Glucose 102 mg/dl (74-100); HDL Cholesterol 50 mg/dl (40-60); Triglycerides 139 mg/dl (30-150); VLDL Cholesterol 28 mg/dL (0-40)
[2024-01-20 11:53] LABS: Direct LDL Cholesterol 158.64 mg/dL (100-129)
[2024-01-20 11:56] LABS: Troponin I < 0.01 ng/ml (0.00-0.034)
[2024-01-20 12:08] LABS: Basophils # 0.1 K/mm3 (0-0.2); Eosinophils # 0.1 K/mm3 (0.0-0.4); Eosinophils % 1.2 % (0.1-12.0); Hematocrit 42.3 % (37.0-47.0); Hemoglobin 13.7 g/dL (12.2-16.2); Lymphocytes # 1.5 K/mm3 (0.7-4.5); Mean Corpuscular HGB Conc 32.5 g/dL (31.8-35.4); Mean Corpuscular Hemoglobin 30.1 pg (27.0-31.2); Mean Corpuscular Volume 92.7 fl (81-99); Mean Platelet Volume 7.6 fl (7.4-10.4); Monocytes # 0.3 K/mm3 (0.1-1.0); Monocytes % 4.6 % (1.7-9.3); Neutrophils # 4.5 K/mm3 (1.8-7.8); Neutrophils % 70.3 % (37.0-80.0); Platelet Count 328 K/mm3 (142-424); Red Blood Count 4.56 M/mm3 (4.20-5.40); Red Cell Distribution Width 14.3 % (11.5-17.5); White Blood Count 6.3 K/mm3 (4.8-10.8)
[2024-01-20 12:12] LABS: Thyroid Stimulating Hormone 1.65 uIU/mL (0.465-4.68)
== END 2024-01-20 23:59 | disposition home or self-care (01) ==
LOC: LAB 10:56
PROVIDERS: PCP Nurse Practitioner Family; Visit Provider Nurse Practitioner Family
DX: R03.0 Elevated blood-pressure reading, without diagnosis of hypertension (principal); R07.9 Chest pain, unspecified; R45.89 Other symptoms and signs involving emotional state; R63.5 Abnormal weight gain
CPT/HCPCS: 36415; 80050; 80053; 80061; 83735; 84443; 84484; 85025; 93005

== ENCOUNTER 2024-02-01 10:24 | Outpatient (CLI) | payer OTHER, SELFPAY ==
[2024-02-01 13:30] LABS: Alanine Aminotransferase 33 U/L (12-78); Albumin Level 4.4 g/dl (3.5-5.0); Albumin/Globulin Ratio 1.7 (1.1-1.8); Alkaline Phosphatase 114 U/L (38-126); Anion Gap 10.1 mEq/L (5-15); Aspartate Amino Transferase 30 U/L (14-36); Bilirubin,Total 0.4 mg/dl (0.2-1.3); Blood Urea Nitrogen 13 mg/dl (7-17); Calcium 9.8 mg/dl (8.4-10.2); Carbon Dioxide 27 mmol/L (22.0-30.0); Chloride 109 mmol/L (98-107); Estimated Glomerular Filt Rate 125 ml/min (>60); GFR (African American) 151 ML/MIN (>60); Globulin 2.6 g/dL (1.3-3.2); Glucose 90 mg/dl (74-100); Potassium 4.1 mmoL/L (3.5-5.1); Sodium 142 mmol/L (136-145)
== END 2024-02-01 23:59 | disposition home or self-care (01) ==
LOC: RT 10:25
PROVIDERS: PCP Nurse Practitioner Family; Visit Provider Nurse Practitioner Family
DX: R00.2 Palpitations (principal); E87.6 Hypokalemia
CPT/HCPCS: 80053; 93225; 93227

== ENCOUNTER 2024-02-24 06:21 | Outpatient (CLI) | payer OTHER, SELFPAY ==
--- NOTE | 2024-02-24 06:25 | NM_ITS ---
APPROVED REPORT Exam: Nuclear Stress Test Indication: Chest pain, Abnormal EKG, HTN, High cholesterol, Tobacco use, Family history Patient Location: Outpatient Stress Tech: Sarita Melgoza HI Tech:Hetal Ying, ARRT, RT (R)(N) Ht: 4 ft 10 in Wt: 119 lbs Bra Size: 36B HR: 69 bpm BP: 157/75 mmHg BSA: 1.46 m2 TID: 1.11 BMI: 24.8 History: Chest pain, Abnormal EKG, HTN, High cholesterol, Tobacco use, Family history Procedure: Patient exercised on Shahab protocol 5:30 minutes and sec, resting heart rate 69 bpm, resting blood pressure 157/75 mmHg, with exercise maximum heart rate achived was 155 bpm which is 99 % of the maximum predicted heart rate and blood pressure was 190/80 mmHg. Test was stopped due to SOB. Patient denied any complaint of chest pain. Patient has exercise capacity, achieved 7.0 METs of workload on treadmill, the blood pressure response to exercise was . Cardiac Stress and Resting SPECT Images: Cardiac Stress and Resting SPECT images were obtained using technetium 99m Myoview 31.2 mCi stress and 10.06 mCi at rest. Resting and stress imaging in supine and prone positions demonstrate no evidence of fixed or reversible perfusion defects. Gated imaging demonstrates normal global and regional LV systolic function. LVEF is calculated at 67%. Conclusion: No evidence of fixed or reversible perfusion defects. Gated imaging demonstrates normal global and regional LV systolic function. LVEF is calculated at 67%. Electronically signed by : Rosi Mario MD 02/24/2024 11:58:22
--- NOTE | 2024-02-24 09:49 | CA_ITS ---
APPROVED REPORT Exam: Exercise Treadmill Technologist: Sarita Coon, Ht: 4 ft 10 in Wt: 117 lbs BSA: 1.45 m2 HR: 71 bpm BP: 166/72 mmHg Rhythm: NSR Medical History Medications: Fish Oil,,,,, Pantoprazole,,,,, Crestor,,,,, MeLOXICAM,,,,, Escitalopram Oxalate,,,,, Milk Thistle,,,,, Metoprolol Succinate ER,,,,, Potassium Chloride ER,,,,, Phosphatidylcholine,,,,, Stress Test Details Test: Shahab HR Resting HR: 69 bpm Max Heart Rate (APMHR): 157 bpm Max HR Achieved: 155 bpm Target HR (85% APMHR): 133 bpm % of APMHR: 99 Recovery HR: 87 bpm HR response to stress: Normal HR response to stress BP Resting BP: 157.0/75.0 mmHg Max BP: 190.0/80.0 mmHg Recovery BP: 146.0/65.0 mmHg BP response to stress: Normal blood pressure response to stress. ECG Resting ECG: NSR Stress EC mm horizontal ST depression Arrhythmia: PACs, PVCs, ventricular couplets Recovery ECG: Return to baseline within 3 minutes of recovery Recovery Arrhythmia: PACs, PVCs Clinical Exercise duration: 05:30 min Highest Stage Achieved: II Exercise capacity: 7.0 METs Overall Exercise Capacity for Age: Average Stress ECG Conclusion The patient was able to exercise for a total of 5 minutes, 30 seconds. She achieved a total of 7 METS. She has average exercise capacity compared to age and sex matched peers. She has normal HR and BP response to exercise. Max HR: 146 % of PM: 93% Max BP: 190/80 METs: 7.0 Test stopped due to: SOA Symptoms: No CP. Arrhythmias/Ectopy: Frequent PACs, occasional PVC, [address]-T Changes: [address] depression Conclusion: Average exercise capacity. ECG findings equivocal for ischemia at peak stress. Myoview images reported separately. Test Summary REST . . . . . . . Sitting REST . . . . . . . Standing REST 04:06 0.0 0.0 69 . 157/ 75 . . Stage 1 01:00 10.0 1.7 95 . . . . Stage 1 02:00 10.0 1.7 121 . . . . Stage 1 03:00 10.0 1.7 129 . 190/ 80 . . Stage 2 01:00 12.0 2.5 138 . . . . Stage 2 . . . . . . . Cardiolite injected Stage 2 02:00 12.0 2.5 145 . . . . Stage 2 02:30 12.0 2.5 146 . . . Stop exercise at 05:30 RECOVERY 01:00 0.0 0.0 133 . . . . RECOVERY 02:00 0.0 0.0 104 . 172/ 68 . . RECOVERY 03:00 0.0 0.0 93 . 172/ 68 . . RECOVERY 04:00 0.0 0.0 84 . 154/ 67 . . RECOVERY 05:00 0.0 0.0 87 . 146/ 65 . . RECOVERY 05:19 0.0 0.0 85 . 146/ 65 . . Electronically signed by : Rosi Mario MD 02/24/2024 11:57:21
== END 2024-02-24 23:59 | disposition home or self-care (01) ==
LOC: RAD 06:21
PROVIDERS: PCP Nurse Practitioner Family; Visit Provider Nurse Practitioner
DX: I20.89 Other forms of angina pectoris (principal); R94.31 Abnormal electrocardiogram [ECG] [EKG]; F17.210 Nicotine dependence, cigarettes, uncomplicated
CPT/HCPCS: 78452; 93017; 93018; A9502

== ENCOUNTER 2024-02-25 07:53 | Outpatient (CLI) | payer OTHER, SELFPAY ==
--- NOTE | 2024-02-25 07:53 | CA_ITS ---
APPROVED REPORT EXAM: Comprehensive 2D, Doppler, and color-flow Echocardiogram Resident Care Manager: Sommer Lawrence RT(R) Ht: 4 ft 10 in Wt: 117lbs BSA: 1.45 BP: 141/58 mmHg Indications: CP, HTN, COPD, smoker, ERWIN, hyperlipidemia, atypical angina 2D Dimensions Left Atrium 3.43 cm F: 2.7 - 3.8 LVEF ([facility]) 52.90 % F: 54 - 74 LVOT 1.71 cm (M/F) 1.5-2.5 LV Volume 54.80 mL F: 46 - 106 LV Volume Index 37.8 mL/m2 F: 29 - 61 LA Volume 18.70 mL LA Volume Index 12.90 mL/m2 (M/F) 16-34 EF AP4 51.60 % EF AP2 51.7 % EF BP 52.9 % GL Strain -17.0 % M-Mode Dimensions RVDd 2.21 cm (0.9-2.6) LVDd 4.34 cm (3.5-5.7) Ao Diam 2.21 cm (2.0-3.7) LVDs 3.27 cm (3.5-5.7) IVSd 0.57 cm (0.6-1.1) PWd 0.65 cm (0.6-1.1) EF (Teich) 49.10% FS 24.70% EDV (Teich) 84.90 mL ESV (Teich) 43.20 mL LV Diastology E Decel Time 153 (160-240 msec) E/A Ratio 1.0 MED E' 7.7 (>= 7 cm/sec) E'/MED E' Ratio 11.43 (<= 14) LAT E' 8.6 (>= 10 cm/sec) E/LAT E' Ratio 10.23 (<= 14) Mitral Valve MV E Max Lamont. 88.0 (40-130 cm/s) MV A Velocity 91.0 (40-130 cm/s) E/A Ratio 0.97 MV Decel. Time 153 (160-240 ms) Left Ventricle The left ventricle is normal size. The left ventricular systolic function is normal. The left ventricular ejection fraction is within the normal range. There is increased LV wall thickness. There is normal LV segmental wall motion. The left ventricular diastolic function is normal. LVEF is 55%. Right Ventricle The right ventricle is normal size. The right ventricular systolic function is normal. Atria The left atrium size is normal. The right atrium size is normal. There is no Doppler evidence of interatrial shunt. Aortic Valve The aortic valve is mildly thickened. There is no aortic valvular stenosis. No aortic regurgitation is present. Mitral Valve Mild mitral annular calcification. The mitral valve leaflets are mildly thickened. No evidence of mitral valve stenosis. Mild mitral regurgitation. Tricuspid Valve The tricuspid valve leaflets are thin and pliable. Trace tricuspid regurgitation. There is insufficient TR jet to estimate RVSP. Pulmonic Valve The pulmonary valve is normal in structure. Trace pulmonic regurgitation. Great Vessels The aortic root is normal in size. The ascending aorta is not well-visualized. IVC is normal in size and collapses >50% with inspiration. Pericardium There is no pericardial effusion. Other Information Study Quality: Fair Conclusion Normal biventricular systolic function. Mild MR. Electronically signed by : Rosi Mario MD 02/25/2024 12:06:19
== END 2024-02-25 23:59 | disposition home or self-care (01) ==
LOC: RT 07:53
PROVIDERS: PCP Nurse Practitioner Family; Visit Provider Nurse Practitioner
DX: I20.89 Other forms of angina pectoris (principal); R94.31 Abnormal electrocardiogram [ECG] [EKG]; F17.210 Nicotine dependence, cigarettes, uncomplicated
CPT/HCPCS: 93306

== ENCOUNTER 2024-03-29 14:12 | Outpatient (CLI) | payer OTHER, SELFPAY ==
[2024-03-29 14:08] LABS: Thyroid Stimulating Hormone 1.31 uIU/mL (0.465-4.68)
[2024-03-30 12:37] LABS: LH 47.5 mIU/mL (7.7-58.5); Progesterone 0.2 ng/mL (.)
[2024-03-30 15:18] LABS: Estradiol <5.0 pg/mL (0.0-54.7)
== END 2024-03-29 23:59 | disposition home or self-care (01) ==
LOC: LAB.DROPOF 03-30 14:13
PROVIDERS: PCP Nurse Practitioner Family; Visit Provider Nurse Practitioner Family
DX: R23.2 Flushing (principal); R10.30 Lower abdominal pain, unspecified; E78.49 Other hyperlipidemia; R42 Dizziness and giddiness
CPT/HCPCS: 82670; 83001; 83002; 84144; 84443

== ENCOUNTER 2024-04-19 10:41 | Outpatient (POV) | payer OTHER, SELFPAY | END 2024-04-19 23:59 | disposition home or self-care (01) | LOC: SC 10:41 | PROVIDERS: Visit Provider Dermatology | DX: Z00.00 Encounter for general adult medical examination without abnormal findings (principal) ==

== ENCOUNTER 2024-08-24 13:33 | Outpatient (CLI) | payer OTHER, SELFPAY ==
[2024-08-24 14:12] LABS: Alanine Aminotransferase 22 U/L (12-78); Albumin Level 4.6 g/dl (3.5-5.0); Albumin/Globulin Ratio 2.2 (1.1-1.8); Alkaline Phosphatase 126 U/L (38-126); Anion Gap 12.2 mEq/L (5-15); Aspartate Amino Transferase 28 U/L (14-36); Bilirubin,Total 0.6 mg/dl (0.2-1.3); Blood Urea Nitrogen 17 mg/dl (7-17); Calcium 9.8 mg/dl (8.4-10.2); Carbon Dioxide 28 mmol/L (22.0-30.0); Chloride 105 mmol/L (98-107); Cholesterol 168 mg/dl (140-200); Estimated Glomerular Filt Rate 101 ml/min (>60); GFR (African American) 122 ML/MIN (>60); Globulin 2.1 g/dL (1.3-3.2); Glucose 91 mg/dl (74-100); HDL Cholesterol 42 mg/dl (40-60); Potassium 4.2 mmoL/L (3.5-5.1); Sodium 141 mmol/L (136-145); Total Protein,Serum 6.7 g/dl (6.3-8.2); Triglycerides 175 mg/dl (30-150); VLDL Cholesterol 35 mg/dL (0-40)
[2024-08-24 14:22] LABS: Direct LDL Cholesterol 90.44 mg/dL (100-129)
== END 2024-08-24 23:59 | disposition home or self-care (01) ==
LOC: LAB.DROPOF 13:34
PROVIDERS: PCP Nurse Practitioner Family; Visit Provider Nurse Practitioner Family
DX: E78.49 Other hyperlipidemia (principal); I10 Essential (primary) hypertension; Z72.0 Tobacco use
CPT/HCPCS: 36415; 80053; 80061

== ENCOUNTER 2024-10-04 12:26 | Outpatient (CLI) | payer OTHER, SELFPAY ==
[2024-10-04 13:55] LABS: Alanine Aminotransferase 20 U/L (12-78); Albumin Level 4.4 g/dl (3.5-5.0); Albumin/Globulin Ratio 2.3 (1.1-1.8); Alkaline Phosphatase 102 U/L (38-126); Amylase 52 U/L (30-110); Aspartate Amino Transferase 25 U/L (14-36); Bilirubin,Total 0.6 mg/dl (0.2-1.3); Blood Urea Nitrogen 17 mg/dl (7-17); Calcium 9.4 mg/dl (8.4-10.2); Carbon Dioxide 27 mmol/L (22.0-30.0); Chloride 108 mmol/L (98-107); Estimated Glomerular Filt Rate 101 ml/min (>60); GFR (African American) 122 ML/MIN (>60); Globulin 1.9 g/dL (1.3-3.2); Glucose 99 mg/dl (74-100); Lipase 94 U/L (23-300); Sodium 140 mmol/L (136-145); Total Protein,Serum 6.3 g/dl (6.3-8.2)
[2024-10-05 14:26] LABS: H. pylori Breath Test Negative (Negative)
== END 2024-10-04 23:59 | disposition home or self-care (01) ==
LOC: LAB 12:27
PROVIDERS: PCP Nurse Practitioner Family; Visit Provider Nurse Practitioner Family
DX: R19.7 Diarrhea, unspecified (principal); R14.0 Abdominal distension (gaseous); R11.0 Nausea
CPT/HCPCS: 36415; 80053; 82150; 83013; 83690

== ENCOUNTER 2024-10-07 11:34 | Outpatient (CLI) | payer OTHER, SELFPAY ==
[2024-10-10 15:53] LABS: Pancreatic Elastase, Fecal >800 (>200)
== END 2024-10-07 23:59 | disposition home or self-care (01) ==
LOC: LAB 11:34
PROVIDERS: PCP Nurse Practitioner Family; Visit Provider Nurse Practitioner Family
DX: R19.7 Diarrhea, unspecified (principal); R11.0 Nausea; R14.0 Abdominal distension (gaseous)
CPT/HCPCS: 82656

== ENCOUNTER 2024-12-09 13:34 | Outpatient (CLI) | payer OTHER, SELFPAY ==
[2024-12-09 15:55] LABS: Basophils # 0.1 K/mm3 (0-0.2); Eosinophils # 0.1 Kmm3 (0.0-0.4); Eosinophils % 1.8 % (0.1-12.0); Hematocrit 43.4 % (37.0-47.0); Hemoglobin 14.3 g/dL (12.2-16.2); Immature Granulocytes # 0.02 10^3uL; Immature Granulocytes % 0.3 %; Lymphocytes # 1.3 K/mm3 (0.7-4.5); Lymphocytes % 21.4 % (10-50); Mean Corpuscular HGB Conc 32.9 g/dL (31.8-35.4); Mean Corpuscular Volume 93.9 fl (81-99); Mean Platelet Volume 10.1 fl (7.4-10.4); Monocytes # 0.4 K/mm3 (0.1-1.0); Monocytes % 5.7 % (1.7-9.3); Neutrophils # 4.3 K/mm3 (1.8-7.8); Neutrophils % 69.8 % (37.0-80.0); Nucleated Red Blood Cells # 0 10^3/uL; Nucleated Red Blood Cells % 0 %; Platelet Count 304 K/mm3 (142-424); Red Blood Count 4.62 M/mm3 (4.20-5.40); Red Cell Distribution Width 13.3 % (11.5-17.5); Red Cell Distribution Width-SD 45.9 fL; White Blood Count 6.1 K/mm3 (4.8-10.8)
[2024-12-09 16:57] LABS: Alanine Aminotransferase 16 U/L (12-78); Albumin Level 4.4 g/dl (3.5-5.0); Albumin/Globulin Ratio 2.1 (1.1-1.8); Alkaline Phosphatase 104 U/L (38-126); Anion Gap 9.7 mEq/L (5-15); Aspartate Amino Transferase 28 U/L (14-36); Bilirubin,Total 0.6 mg/dl (0.2-1.3); Blood Urea Nitrogen 14 mg/dl (7-17); Calcium 9.1 mg/dl (8.4-10.2); Carbon Dioxide 28 mmol/L (22.0-30.0); Chloride 106 mmol/L (98-107); Chol/HDL Ratio 5.1 (1-3.5); Cholesterol 205 mg/dl (140-200); Estimated Glomerular Filt Rate 101 ml/min (>60); GFR (African American) 122 ML/MIN (>60); Globulin 2.1 g/dL (1.3-3.2); Glucose 61 mg/dl (74-100); HDL Cholesterol 40 mg/dl (40-60); Magnesium 2.2 mg/dl (1.6-2.3); Potassium 3.7 mmoL/L (3.5-5.1); Sodium 140 mmol/L (136-145); Total Protein,Serum 6.5 g/dl (6.3-8.2); Triglycerides 294 mg/dl (30-150); VLDL Cholesterol 59 mg/dL (0-40)
[2024-12-09 17:08] LABS: Direct LDL Cholesterol 104.65 mg/dL (100-129)
[2024-12-09 17:18] LABS: 25-OH Vitamin D, Total 29.8 ng/mL (30-100)
[2024-12-09 17:34] LABS: Thyroid Stimulating Hormone 1.77 uIU/mL (0.465-4.68)
[2024-12-09 17:53] LABS: Vitamin B12 433 pg/mL (239-931)
[2024-12-09 19:09] LABS: Ferritin 72.4 ng/ml (11.1-264)
[2024-12-11 14:58] LABS: Cortisol,AM 8.5 ug/dL (6.2-19.4)
--- OUTSIDE RECORDS SUMMARY | 2024-12-12 13:36 | XMS_ITS | Data Portability ---
Author Organization DEJAN - [facility] - [facility] & VENECIA Spaulding ADMIN Address [address] [place] [id number] Assessment Encounter Date Assessment Date Assessment LastModified by Organization Details LastModified Time 11/11/2023 11/11/2023 63-year-old fema le with: 1) Dysphagia/EGJ outflow obstruction: discovered on manometry 08/27/2023. Patient previously underwent EGD with dilation at [facility] on 05/15/23 without relief. - Patient underwent EGD with Dr. Palmer on 09/15/23, without botox injection. The patient reports she was told the procedure would make her stop breathing. Patient case from Dr. Palmer states the patient reported dysphagia once every two months. The patient presents to the clinic today complaining of continued dysphagia every other day. - The patient will call if she would like to undergo EGD with botox injection. 2) Acid reflux - Instructed patient to take pantoprazole 40mg once daily 30 minutes before meals - Continue acid suppression medication - Elevation of head of the bed - Remain upright 2 to 3 hours after eating - Dietary modification: Avoidance of triggers such as fatty foods, caffeine, chocolate, spicy foods, food with high fat content, carbonated beverages, peppermint, acidic and citrus items - Avoidance of tight fitting garments - Promotion of salivation through oral lozenges/chewing gum to neutralize refluxed acid - Avoidance of tobacco and alcohol 3) Abdominal bloating/nausea -Will order CT abdomen pelvis to further assess abdominal pain/bloating. This is the third time this scan has been ordered. The patient states the hospital has not contacted her. Instructed the patient o call the hospital on Thursday11/16/23 if she has not heard from them by then. -Continue to taper Reglan as able. She has tapered down her dose significantly since last office visit, educated patient is okay to stop the medication when she feels she is able. - Continue Zofran PRN to help with nausea during Reglan taper - May need gastric emptying study in the future if symptoms are not relieved with Botox injection 4) Colorectal cancer screening - Patient underwent colonoscopy at [facility] with Dr. Sanchez on 05/09/2019 which showed 3 polyps: 1 TA, 1 hyperplastic and 1 colonic mucosa. Repeat was recommended in 5 years. Patient is due for surveillance colonoscopy 05/15/2024 [email or web address] Not available 11/11/2023 09:55:38 01/07/2024 01/07/2024 63-year-old fema le with: 1) Dysphagia/EGJ outflow obstruction: discovered on manometry 08/27/2023. Patient previously underwent EGD with dilation at [facility] on 05/15/23 without relief. - Patient underwent EGD with Dr. Palmer on 09/15/23, without botox injection. The patient reports she was told the procedure could make her stop breathing. Patient case from Dr. Palmer states the patient reported dysphagia once every two months. The patient presents to the clinic today complaining of continued dysphagia every other day. - The patient would like to undergo EGD with botox injection. Will schedule today with Dr. Guzmán. 2) Acid reflux: no complaints in office today. - Continue pantoprazole 40mg once daily 30 minutes before meals - Continue acid suppression medication - Elevation of head of the bed - Remain upright 2 to 3 hours after eating - Dietary modification: Avoidance of triggers such as fatty foods, caffeine, chocolate, spicy foods, food with high fat content, carbonated beverages, peppermint, acidic and citrus items - Avoidance of tight fitting garments - Promotion of salivation through oral lozenges/chewing gum to neutralize refluxed acid - Avoidance of tobacco and alcohol 3) Abdominal bloating/nausea -CT abdomen pelvis with contrast on 11/26/2023 revealed mild mucosal thickening of the descending and sigmoid colon without pericolonic inflammatory changes. Clinical correlation recommended. Direct visualization may be of benefit. Will schedule colonoscopy for further evaluation. -Patient has tapered off Reglan. Will consider GES for further evaluation if symptoms persist after EGD with botox injection. 4) Colorectal cancer screening - Patient underwent colonoscopy at [facility] with Dr. Sanchez on 05/09/2019 which showed 3 polyps: 1 TA, 1 hyperplastic and 1 colonic mucosa. Repeat was recommended in 5 years. Patient is due for surveillance colonoscopy 05/15/2024 -Colonoscopy scheduled per above. 4 week f/u after EGD with botox and colon [email or web address] Not available 01/07/2024 16:36:08 03/18/2024 03/18/2024 63-year-old jackson cade with: 1) EGJ outflow obstruction: On manometry 08/27/2023. Her symptoms are not entirely consistent with this as she does not complain of overt dysphagia, but rather early satiety. Patient previously underwent EGD with dilation at [facility] on 05/15/23 without change in symptoms. EGD with Botox also did not change her symptoms much. -At this point, I would defer further treatment of achalasia due to lack of true dysphagia symptoms. Will focus on her bloating issues and early satiety. May consider Upper GI series with SBFT. 2) Acid reflux: - Continue pantoprazole 40mg once daily 30 minutes before meals 3) Abdominal bloating/nausea/ea rly satiety: This is the patient's primary complaint. -CT abdomen pelvis with contrast on 11/26/2023 revealed mild mucosal thickening of the descending and sigmoid colon without pericolonic inflammatory changes. Colonoscopy showed diverticulosis only. -Patient has tapered off Reglan previously. -She reports normal GES at [facility] in the past, but this may have been several years ago, she is unsure. She does not wish to repeat at this time, but will likely need to revisit. -She had some improvement briefly following colonoscopy. Discussed that we may need to consider retained colonic stools as a cause of her symptoms. She is agreeable to Xray today. Will discuss laxative therapy if indicated. Motegrity may be a good option, if indicated, due to her coconcurrent dyspepsia. 4) History of colon polyps: Surveillance colonoscopy due 01/2029. 4 week f/u [email or web address] Not available 03/18/2024 14:35:58 04/15/2024 04/15/2024 63-year-old jackson cade with: 1) EGJ outflow obstruction: On manometry 08/27/2023. Her symptoms are not entirely consistent with this as she does not complain of overt dysphagia, but rather early satiety. Patient previously underwent EGD with dilation at [facility] on 05/15/23 without change in symptoms. EGD with Botox also did not change her symptoms much. -At this point, I would defer further treatment of achalasia due to lack of true dysphagia symptoms. Will focus on her bloating issues and early satiety. Previous esophagram showed dysmotility. 2) Acid reflux: - Continue pantoprazole 40mg once daily 30 minutes before meals 3) Abdominal bloating/nausea/ea rly satiety: This is the patient's primary complaint. LIkely multifactorial. -She has a history of CSID, did not feel sucraid was helpful. -CT abdomen pelvis with contrast on 11/26/2023 revealed mild mucosal thickening of the descending and sigmoid colon without pericolonic inflammatory changes. Colonoscopy showed diverticulosis only. -Patient has tapered off Reglan previously. -KUB recently showed constipation. She defers repeat gastric emptying study. WIll obtain prior study from [facility]. -She had some improvement briefly following colonoscopy. -Linzess prescribed again. She was also given samples of both the 72 mcg and 145 mcg dose to trial. 4) History of colon polyps: Surveillance colonoscopy due 01/2029. 4 week f/u. If no change, will recommend she go back on sucraid and trial a gluten and lactose free diet. [email or web address] Not available 04/15/2024 15:32:00 05/20/2024 05/20/2024 63-year-old fema le with: 1) Abdominal bloating/nausea/ea rly satiety: This is the patient's primary complaint. LIkely multifactorial. Compliance to medical recommendations has been an issue. -She has a history of CSID, did not feel sucraid was helpful. -CT abdomen pelvis with contrast on 11/26/2023 revealed mild mucosal thickening of the descending and sigmoid colon without pericolonic inflammatory changes. Colonoscopy showed diverticulosis only. -Patient has tapered off Reglan previously. -KUB recently showed constipation. She defers repeat gastric emptying study. -She had some improvement briefly following colonoscopy, indicating to me that constipation is likely playing a role. She does not want to try to Linzess again, even at lower doses. -I have recommended she perform a bowel purge x1 today with 5 cupfuls of miralax in a 32 oz gatorade. I recommended she then start taking miralax, one capful daily thereafter. I have asked her to do this persistently for atleast 2 weeks. If she develops excessive stools, she may reduce to 1/2 cupful daily alternatively. -May need to consider resuming Sucraid with persistent bloating. May also need to consider repeat GES. 2) History of colon polyps: Surveillance colonoscopy due 01/2029. 3) EGJ outflow obstruction: On manometry 08/27/2023. Her symptoms are not entirely consistent with this as she does not complain of overt dysphagia, but rather early satiety. Patient previously underwent EGD with dilation at [facility] on 05/15/23 without change in symptoms. EGD with Botox also did not change her symptoms much. -At this point, I would defer further treatment of achalasia due to lack of true dysphagia symptoms. Will focus on her bloating issues and early satiety. Previous esophagram showed dysmotility. 4) Acid reflux: - Continue pantoprazole 40mg once daily 30 minutes before meals -She wishes to follow-up as needed. Not available 05/20/2024 15:21:26 Plan of Treatment Reminders Order Date Submit Date Provider Last Modified By Organization Details Last Modified Time Details Appointments None recorded. Lab None recorded. Referral None recorded. Procedures None recorded. Surgeries None recorded. Imaging XR, kidney + ureter + bladder [address] (Registration ), [address], [place], [address], 4 15:56:52 CT, abdomen + pelvis, w/ contrast - abdominal pain/bloati ng [address] (Centralized Scheduling), [address], [place], [address], 4 08:47:23 Medication Orders polyethylen e glycol 3350 17 gram/dose oral powder 2023 024 [facility] [address], [address], 4 11:38:15 Linlilli 72 mcg capsule 2023 024 [facility], [address], [address], 09:41:44 Patient TargetsNo targets recorded. Patient InstructionsNo instructions recorded. Reason for Referral None Reported. Results Created Date Observation Date Name Description Value Unit Range Abnormal Flag Note LastModifiedBy Organization Detail LastModifiedTime 11/26/19 24 11/26/2023 COMP METAB OLIC PANEL sodium 141 mmol/ L 136-14 5 Not Available [facility] ([facility]) [address] [facility], [place], [address], 11/26/2023 08:56:50 11/26/19 24 11/26/2023 COMP METAB OLIC PANEL potassium 3.5 mmol/ L 3.6-5. 0 low Not Available [facility] ([facility]) [address] [place], [address], 11/26/2023 08:56:50 11/26/19 24 11/26/2023 COMP METAB OLIC PANEL chloride 105 mmol/ L 98-107 Not Available [facility] ([facility]) [address] [place], [address], 11/26/2023 08:56:50 11/26/19 24 11/26/2023 COMP METAB OLIC PANEL carbon dioxide 26.9 mmol/ L 21.0-3 2.0 Not Available [facility] ([facility]) [address] [place], [address], 11/26/2023 08:56:50 11/26/19 24 11/26/2023 COMP METAB OLIC PANEL anion gap 12.6 Not Available [facility] ([facility]) [address] [place], [address], 11/26/2023 08:56:50 11/26/19 24 11/26/2023 COMP METAB OLIC PANEL glucose 104 mg/dL 70-120 Not Available [facility] ([facility]) [address], [place], [address], 11/26/2023 08:56:50 11/26/19 24 11/26/2023 COMP METAB OLIC PANEL BUN 14 mg/dL 7-18 Not Available [facility] ([facility]) [address], [place], [address], 11/26/2023 08:56:50 11/26/19 24 11/26/2023 COMP METAB OLIC PANEL creatinine 0.6 mg/dL 0.6-1. 3 Not Available [facility] ([facility]) [address], [place], [address], 11/26/2023 08:56:50 11/26/19 24 11/26/2023 COMP METAB OLIC PANEL glomerular filtration rate >60 mlper min 60- Not Available [facility] ([facility]) [address], [place], [address], 11/26/2023 08:56:50 11/26/19 24 11/26/2023 COMP METAB OLIC PANEL total protein 7.0 g/dL 6.4-8. 2 Not Available [facility] ([facility]) [address], [place], [address], 11/26/2023 08:56:50 11/26/19 24 11/26/2023 COMP METAB OLIC PANEL albumin 3.9 g/dL 3.4-5. 0 Not Available [facility] ([facility]) [address], [place], [address], 11/26/2023 08:56:50 11/26/19 24 11/26/2023 COMP METAB OLIC PANEL globulin 3.1 Not Available [facility] ([facility]) [address] [place], [address], 11/26/2023 08:56:50 11/26/19 24 11/26/2023 COMP METAB OLIC PANEL alb/glob ratio 1.3 0.7-2 Not Available [facility] ([facility]) [address] , [place], [address], 11/26/2023 08:56:50 11/26/19 24 11/26/2023 COMP METAB OLIC PANEL calcium 9.1 mg/dL 8.5-10 .5 Not Available [facility] ([facility]) [address] , [place], [address], 11/26/2023 08:56:50 11/26/19 24 11/26/2023 COMP METAB OLIC PANEL bilirubin total 0.50 mg/dL 0.10-1 .00 Not Available [facility] ([facility]) [address] , [place], [address], 11/26/2023 08:56:50 11/26/19 24 11/26/2023 COMP METAB OLIC PANEL AST (SGOT) 17 U/L 0-37 Not Available [facility] ([facility]) [address], [place], [address], 11/26/2023 08:56:50 11/26/19 24 11/26/2023 COMP METAB OLIC PANEL ALT (SGPT) 33 U/L 0-65 Not Available [facility] ([facility]) [address] , [place], [address], 11/26/2023 08:56:50 11/26/19 24 11/26/2023 COMP METAB OLIC PANEL alk phosphatase 132 U/L 46-116 high Not Available [facility] ([facility]) [address] , [place], [address], 11/26/2023 08:56:50 11/26/19 24 11/26/2023 CT ABD pel w/ (IV [facility] [address] [place] [address] Phone: Fax: Name: [address] Exam Date: 11/26/19 : 1959 Age 63 years Gender : F Access ion: [id number] Physic marlene: SAMIA [place]IVE [place] Facili ty: [place] Fac[place] ty HSV: Outpat ient Exam: CT ABD PEL W/ (IV ^ ORAL) CT ABDOME N AND PELVIS WITH CONTRA ST HISTOR Y: Acute genera lized abdomi nal pain and disten tion. PROCED URE: The patien t was inject ed with IV contra st. Oral contra st was also admini stered . Axial images were obtain ed from the lung bases to the pubic symphy sis by comput ed tomogr aphy.T his study was perfor med with techni ques to keep radiat ion doses as low as reason ably achiev able, (ALARA ). FINDIN GS: ABDOME N: There is basila r atelec tasis. The heart is normal in size. The liver is diffus ana fatty infilt rated. No focal hepati c abnorm ality is identi fied. Gallbl adder is contra cted. The spleen is unrema rkable . No adrena l mass is presen t. The pancre as is normal . There are nonobs tructi ng bilate ral renal stones . There is no hydron ephros is or ureter al stone. There is a 2.7 cm left renal cyst and a 1.1 cm right renal cyst. There is athero sclero sis. The aorta is normal in calibe r. There is no free fluid or adenop athy. No free air is identi fied. There is left coloni c divert iculos is withou t eviden ce of divert iculit is. Mild mucosa l thicke leonor is seen of the sigmoi d and descen ding colon withou t associ ated cheryl lonic inflam matory change s. PELVIS : The append ix is normal . Uterus is presen t. The urinar y bladde r is decomp ressed . There is no signif icant free fluid or adenop athy. No acute osseou s abnorm ality is identi fied. IMPRES MARGARITA: Mild mucosa l thicke leonor of the descen ding and sigmoi d colon withou t cheryl lonic inflam matory change s. Clinic al correl ation recomm ended. Direct visual izatio n may be of benefi t. Images review ed, interp reted and dictat ed by Dr. Nava. Transc ribed by London Tapia PA-C Dictat ed By: ABDIEL NAVA Transc ribed By: Abdiel Nava Transc ribed On: 11/26/19 4:17 PM Electr onical ly signed by: ABDIEL NAVA 11/26/[address] for referr ing [address] to [facility]. Legall y authen ticate d by POPE ABDIEL Ramirez 11-25 16:17: 26 CC'ed Logic: Orderi ng Provid er: LIVE [place]IA [place] Attend ing Provid er: [place]IVE [place] Referr ing Provid er: LIVE [place] Admitt ing Provid er: LIVE SAM[place] [email or web address] [facility] [address] [place] [address], [address], 12/09/2023 08:15:32 03/21/20 24 03/18/2024 XR, abdom en, 1 view [facility] [address] [place] [address] Phone: Fax: Name: [address] Exam Date: 024 : 1959 Age 63 years Gender : F Access ion: [id number] Physic marlene: JUN LEDEZMA Facili ty: [place] Facili ty HSV: Outpat ient Exam: ABD KUB 1V Abdome n KUB COMPAR JAYDE: November 26, 2023, y 2023 TECHNI QUE: 1. View of the abdome n perfor med FINDIN GS: Levosc oliosi s 20 degree s and modera te degene rative change s in the spine. Consti pation no obstru ction or ileus. Multip le calcul i overly ing the kidney shadow s. IMPRES MARGARITA: Bilate ral intrar enal calcul i. Consti pation . Electr onical ly signed by:Ji Edwards MD02/25 08:56 AM EDT RP Workst ation: [id number] Dictat ed By: Abdiel Edwards Transc ribed By: Transc ribed On: 024 1:10 PM Electr onical ly signed by: Abdiel Edwards 024 Thank you for referr AMELIA Meehan to [facility]. Legall y authen ticate d by TELMA MEADOWS 2023-0 03-18 13:10: 33 CC'ed Logic: Orderi ng Provid er: HUNG POTTER Attend ing Provid er: HUNG POTTER Referr ing Provid er: HUNG POTTER Admitt ing Provid er: HUNG POTTER [email or web address] [facility] [address] [facility], [place], [address], 03/30/2024 15:55:05 Result Notes None recorded. Problems Name Problem SNOMED Code Status Onset Date Resolution Date Notes Provider Name and Address Organization Details Recorded Time Abdominal bloating 744432244 Active 2023 Jun Ledezma PA-C [address] [place], [address] , [facility] & [place] 4 11:30:25 Esophageal dysmotility 664814169 Active 2023 Jun Ledezma PA-C [address] [place], [address] , [place] [facility] & [place] 4 11:30:25 Dysphagia 21512708 Active 2023 Jun Ledezma PA-C [address] [place], [address] , [place] [facility] & [place] 4 11:30:25 Nausea 009560935 Active 2023 Jun Ledezma PA-C [address] [place], [address] , [place] [facility] & [place] 4 11:30:25 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 Jun Ledezma PA-C [address] [facility], [place], [address] , [place] - [facility] - [place] & [place] 4 11:30:25 Acid reflux 474536641 Active 2023 Jun Ledezma PA-C [address] [facility], [place], [address] , [place] [facility] & [place] 4 11:30:25 Esophagogastr ic junction outflow obstruction 314781842 Active 2023 Jun Ledezma PA-C [address] [facility], [place], [address] , [place] [facility] & [place] 4 11:30:25 Chronic idiopathic constipation 89926294 Active 2023 Jun Ledezma PA-C [address] [facility], [place], [address] , [place] [facility] & [place] 4 14:30:38 Constipation 28346568 Active 2023 Jun Ledezma PA-C [address] [facility], [place], [address] , [place] [facility] & [place] 4 12:23:12 Problem Notes None recorded. Procedures Surgical History None recorded. Imaging Results Imaging Date Name Status [facility]Modified by [facility] Details LastModified Time 11/26/2023 CT ABD pel w/ (IV completed [email or web address] [facility] [address] [facility], [place], [address], 12/09/2023 08:15:32 03/18/2024 XR, abdomen, 1 view completed [email or web address] [facility] [address] [facility], [place], [address], 03/30/2024 15:55:05 Procedure Notes None recorded. Medical Equipment None Reported. Allergies No known drug allergies Medications Name Sig Start Date Stop Date Status Note LastModified by Organization Details LastModified Time methocarbam ol 500 mg tablet active Not Available Not Available Not Available potassium chloride ER 10 mEq capsule,ext ended release active Not Available Not Available Not Available doxycycline hyclate 100 mg capsule 01/06 completed Not Available Not Available Not Available paroxetine 10 mg tablet TAKE 1 TABLET BY MOUTH ONCE DAILY active Not Available Not Available No t Available atorvastati n 10 mg tablet TAKE 1 TABLET BY MOUTH ONCE DAILY active Not Available Not Available No t Available azithromyci n 250 mg tablet TAKE 2 TABLETS BY MOUTH ON DAY 1, AND THEN TAKE 1 TABLET BY MOUTH ONCE A DAY ON DAY 2 THROUGH DAY 5 active Not Available Not Available No t Available hydrocodone 5 mg-acetamin ophen 325 mg tablet active Not Available Not Available No t Available meloxicam 15 mg tablet active Not Available Not Available Not Available ondansetron HCl 4 mg tablet Take 1 tablet every 8 hours by oral route as needed for 30 days. active Not Available Not Available No t Available prednisone 20 mg tablet 01/06 completed Not Available Not Available Not Available atenolol 25 mg tablet TAKE 1 TABLET BY MOUTH ONCE DAILY active Not Available Not Available No t Available ketorolac 10 mg tablet active Not Available Not Available Not Available bupropion HCl 100 mg tablet active Not Available Not Available Not Available lorazepam 0.5 mg tablet active Not Available Not Available Not Available tamsulosin 0.4 mg capsule active Not Available Not Available Not Available dicyclomine 20 mg tablet Take 1 tablet 4 times a day by oral route as needed for 30 days. active Not Available Not Available No t Available benzonatate 100 mg capsule active Not Available Not Available Not Available pantoprazol e 40 mg tablet,keke yed release Take 1 tablet every day by oral route for 30 days. active Not Available Not Available No t Available fluoxetine 10 mg capsule TAKE 1 CAPSULE BY MOUTH ONCE DAILY active Not Available Not Available No t Available sertraline 25 mg tablet active Not Available Not Available Not Available buspirone 7.5 mg tablet active Not Available Not Available Not Available metoprolol succinate ER 25 mg tablet,exte nded release 24 hr TAKE 1 TABLET BY MOUTH ONCE DAILY active Not Available Not Available No t Available prednisone 5 mg tablets in a dose pack 01/06 completed Not Available Not Available Not Available ibuprofen 600 mg tablet active Not Available Not Available Not Available polyethylen e glycol 3350 17 gram/dose oral powder DISSOLVE 17 GRAMS (1CAPFUL) OF POWDER IN 8 OUNCES OF LIQUID AND DRINK ONCE DAILY FOR 30 DAYS active Not Available Not Available No t Available albuterol sulfate HFA 90 mcg/actuati on aerosol inhaler active Not Available Not Available Not Available ondansetron 4 mg disintegrat ing tablet Place by transling ual route for 30 days. active Not Available Not Available No t Available cefdinir 300 mg capsule TAKE 1 CAPSULE BY MOUTH TWICE DAILY FOR 10 DAYS active Not Available Not Available No t Available fluoxetine 20 mg capsule TAKE 1 CAPSULE BY MOUTH ONCE DAILY active Not Available Not Available No t Available sertraline 50 mg tablet active Not Available Not Available Not Available metoclopram chris 10 mg tablet active Not Available Not Available Not Available oxycodone 5 mg tablet active Not Available Not Available No t Available rosuvastati n 40 mg tablet active Not Available Not Available Not Available escitalopra m 5 mg tablet active Not Available Not Available Not Available varenicline tartrate 0.5 mg (11)-1 mg (42) tablets in a dose pack 01/06 completed Not Available Not Available Not Available sodium,pota ssium,mag sulfates 17.5 gram-3.13 gram-1.6 gram oral soln Take 2 packages by oral route as directed for 2 days. active Not Available Not Available No t Available naloxone 4 mg/actuatio n nasal spray active Not Available Not Available Not Available Linzess 72 mcg capsule TAKE 1 CAPSULE BY MOUTH ONCE DAILY 2023 active Not Available Not Available Not Avai lable Trulance 3 mg tablet TAKE 1 TABLET BY MOUTH ONCE DAILY active Not Available Not Available No t Available Motegrity 2 mg tablet TAKE 1 TABLET BY MOUTH ONCE DAILY active Not Available Not Available No t Available Vitals Date Recorded Body height Body mass index (BMI) Body weight Body temperature Oxygen saturation Oxygen saturation in Arterial blood by Pulse oximetry Heart rate Heart rate Systolic blood pressure Diastolic blood pressure Provider Name and Address Organization Details Last Updated DateTime 4 147.32 cm 25.8 kg/m2 60619.3 g 97.9 [degF] 98 % 98 % 79 /min 76 /min 149 mm[Hg] 84 mm[Hg] [facility] [place] 4 08:50:12 Date Recorded Body height Body mass index (BMI) Body weight Body temperature Heart rate Systolic blood pressure Diastolic blood pressure Provider Name and Address Organization Details Last Updated DateTime 4 147.32 cm 25.5 kg/m2 60594.2 7 g 99.7 [degF] 89 /min 152 mm[Hg] 79 mm[Hg] Sonia CUADRA [facility] & [place] 4 14:26:44 Date Recorded Body height Body mass index (BMI) Body weight Body temperature Oxygen saturation Oxygen saturation in Arterial blood by Pulse oximetry Heart rate Heart rate Systolic blood pressure Diastolic blood pressure Provider Name and Address Organization Details Last Updated DateTime 4 147.32 cm 24.9 kg/m2 52843.2 1 g 98.2 [degF] 97 % 97 % 72 /min 61 /min 155 mm[Hg] 81 mm[Hg] Janyrosie Tigre CUADRA [facility] & [place] 4 11:44:31 Date Recorded Body height Body mass index (BMI) Body weight Body temperature Oxygen saturation Oxygen saturation in Arterial blood by Pulse oximetry Heart rate Heart rate Systolic blood pressure Diastolic blood pressure Provider Name and Address Organization Details Last Updated DateTime 4 147.32 cm 23.9 kg/m2 83124.2 5 g 98.1 [degF] 98 % 98 % 61 /min 60 /min 172 mm[Hg] 72 mm[Hg] Janyrosie Tigre CUADRA [facility] & [place] 4 08:54:47 Date Recorded Body height Body mass index (BMI) Body weight Body temperature Oxygen saturation Oxygen saturation in Arterial blood by Pulse oximetry Heart rate Heart rate Systolic blood pressure Diastolic blood pressure Provider Name and Address Organization Details Last Updated DateTime 4 147.32 cm 23.9 kg/m2 44297.2 5 g 97.9 [degF] 97 % 97 % 63 /min 62 /min 158 mm[Hg] 85 mm[Hg] Sonia Hollidaydwell DEJAN CUADRA [facility] & [place] 4 10:23:22 Social History Question Answer Notes LastModified by Organizat ion Details LastModified Time Tobacco Smoking Status Current Every Day Smoker Linda Landeros [facility], [place] - [facility] & [place] 08/19/2023 14:03:32 What Is Your Level Of Caffeine Consumption? Heavy [email or web address] Information not available 08/19/2023 How Much Tobacco Do You Smoke? 0.5 PPD [email or web address] Information not available 01/07/2024 Sex: Unknown Functional Status Question Answer Note LastModified by Organizat ion Details LastModified Time Do you use any illicit or recreational drugs? No [email or web address] Information not available 08/19/2023 What is your level of alcohol consumption? None [email or web address] Information not available 08/19/2023 Mental Status None recorded. Family History Nothing Reported. Medical History No medical history recorded. Gynecological HistoryNo gynecological history recorded. 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 [id number] Lázaro Guzmán MD [facility] [address] [address] 09/04/2023 09:22:00 09/04/2023 10:39:45 Abdominal bloating 373702520 R14.0 Esophageal dysmotility 031425667 K22.4 Dysphagia 88307700 R13.1 0 Nausea 743445464 R11.0 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 52844717 E74.31 Acid reflux 531434946 K2 1.9 Esophagoga stric junction outflow obstruction 589660451 K22.2 [id number] Lázaro Guzmán MD [facility] [address] [address] 11/11/2023 08:38:20 11/11/2023 09:25:00 Abdominal bloating 341068824 R14.0 Esophageal dysmotility 468355324 K22.4 Dysphagia 89231291 R13.1 0 Nausea 636780072 R11.0 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 98518383 E74.31 Acid reflux 928526131 K2 1.9 Esophagoga stric junction outflow obstruction 964240666 K22.2 [id number] Lázaro Guzmán MD [facility] [address] [address] 01/07/2024 13:51:03 01/07/2024 15:12:42 Abdominal bloating 825780587 R14.0 Esophageal dysmotility 093017663 K22.4 Dysphagia 06731978 R13.1 0 Nausea 430848887 R11.0 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 41847501 E74.31 Acid reflux 900116899 K2 1.9 Esophagoga stric junction outflow obstruction 597369517 K22.2 [id number] Jun Ledezma PA-C [facility] [address] [address] 03/18/2024 11:27:02 03/18/2024 12:37:54 Abdominal bloating 525327973 R14.0 Esophageal dysmotility 820823041 K22.4 Dysphagia 12057190 R13.1 0 Nausea 361941273 R11.0 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 03415632 E74.31 Acid reflux 145619524 K2 1.9 Esophagoga stric junction outflow obstruction 776690058 K22.2 [id number] Jun Ledezma PA-C [facility] [address] [address] 04/15/2024 08:48:59 04/15/2024 10:17:01 Chronic idiopathic constipation 25171732 K59.04 Abdominal bloating 68432 9008 R14.0 Esophageal dysmotility 646782373 K22.4 Dysphagia 19654194 R13.1 0 Nausea 179990278 R11.0 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 97812016 E74.31 Acid reflux 415373116 K2 1.9 Esophag[place] stric junction outflow obstruction 666123168 K22.2 [id number] Jun Ledezma PA-C [facility] [address] [facility] [address] [place] [address] 05/20/2024 10:18:58 05/20/2024 12:59:00 Chronic idiopathic constipation 52062081 K59.04 Abdominal bloating 80968 9008 R14.0 Esophageal dysmotility 445644508 K22.4 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 38125112 E74.31 Acid reflux 763174148 K2 1.9 Esophag[place] stric junction outflow obstruction 618007909 K22.2 History of polyp of colon 354412920 Z86.0100 Health Concerns Section Related Observation LastModified by Organization Detai ls LastModified Time None Recorded Concern Status LastModified by Organization Details LastModified Time None Recorded Advance Directives Directive None Recorded Payers Insurance Date Sequence Insurance Name Policy Number Policy Velez Covered Member ID Velez Member ID Guarantor Name 05/25/2024 1 [facility]) Amelia Willinghamrajwinder [id number] Amelia Good Serene Notes Date Note Type Note Provider Name and Address Organization Details Recorded Time 11/11/2023 text/html PREVIOUS ( 4 Dameon Live): Ms. Street is a 63-year-old female who was referred by Karishma Espinal APRN for abdominal distension. She underwent barium swallow at [facility] 03/16/23 which showed small sliding-type hiatal hernia with gastroesophageal reflux and esophageal dysmotility. She has been on Reglan for the last 2-3 years, no diagnosis of diabetes or gastroparesis to her knowledge. She then underwent EGD with dilation for dysphagia on 05/15/23 at [facility] which showed reactive gastropathy.The patient presents to the clinic today complaining of abdominal distension, bloating and gas. She reports she feels full quickly. Her appetite is not decreased but she experiences early satiety after eating only a couple of bites of food. She continues to report intermittent dysphagia after EGD with dilation. She denies any dietary triggers. She wakes up in the morning nauseated and takes Reglan which provides her relief. She was started on this medication 2-3 years ago and has been taking it 2-3 times daily since that time. She did previously undergo sucrose breath test which was positive. She reports taking Sucraid previously and does not think it made a difference in her symptoms. She denies any signs or symptoms of tardive dyskinesia. She denies a history of diabetes or gastroparesis. She has not had any further motility workup for esophageal dysmotility found on esophagram. She reports she has not seen a development technologist in many years. She denies weight loss, she is gaining weight. She does not use a GLP-1 agonist. She reports one soft bowel movement daily. Her last colonoscopy was at [facility] with Dr. Sanchez on 05/09/2019 which showed 3 polyps: 1 TA, 1 hyperplastic and 1 colonic mucosa. Repeat was recommended in 5 years. She denies hematemesis, hematochezia or melena. PREVIOUS (09/04/23 Dameon Live): Ms. Street presents to the clinic today for follow-up. 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 She reports she was not contacted by the hospital to schedule her CT scan ordered at last OV. The patient continues to complain of abdominal distension, bloating, and acid reflux. She still has dysphagia to solid foods despite EGD with dilation 04/2023. She has slowly tapered her Reglan, she takes it only as needed. She denies hematemesis hematochezia or melena. CURRENT (11/11/23 Dameon Live): Ms. Street returns to the clinic today for follow-up. She did not undergo botox injection during EGD on 09/15/23. Her symptoms are unchanged. The patient continues to complain of dysphagia. She reports dysphagia every other day while eating. She continues to complain of abdominal bloating as well. CT abdomen has been ordered twice and not done. The patient states the hospital has not contacted her to schedule the procedure. Will order CT again today for assessment. She has tapered her Reglan and takes 10mg once daily now. She takes pantoprazole 40mg as needed. She denies hematemesis, hematochezia or melena. JEREMY LIVE MSN, DIRECTOR HEMATOLOGY, VICE PRESIDENT [employer] [address] [facility], [place], [address], [place] - [facility] - [place] & [place] 11/11/2023 09:57:03 01/07/2024 text/html PREVIOUS ( 4 Dameon Live): Ms. Street is a 63-year-old female who was referred by Karishma Espinal APRN for abdominal distension. She underwent barium swallow at [facility] 03/16/23 which showed small sliding-type hiatal hernia with gastroesophageal reflux and esophageal dysmotility. She has been on Reglan for the last 2-3 years, no diagnosis of diabetes or gastroparesis to her knowledge. She then underwent EGD with dilation for dysphagia on 05/15/23 at [facility] which showed reactive gastropathy.The patient presents to the clinic today complaining of abdominal distension, bloating and gas. She reports she feels full quickly. Her appetite is not decreased but she experiences early satiety after eating only a couple of bites of food. She continues to report intermittent dysphagia after EGD with dilation. She denies any dietary triggers. She wakes up in the morning nauseated and takes Reglan which provides her relief. She was started on this medication 2-3 years ago and has been taking it 2-3 times daily since that time. She did previously undergo sucrose breath test which was positive. She reports taking Sucraid previously and does not think it made a difference in her symptoms. She denies any signs or symptoms of tardive dyskinesia. She denies a history of diabetes or gastroparesis. She has not had any further motility workup for esophageal dysmotility found on esophagram. She reports she has not seen a development technologist in many years. She denies weight loss, she is gaining weight. She does not use a GLP-1 agonist. She reports one soft bowel movement daily. Her last colonoscopy was at [facility] with Dr. Sanchez on 05/09/2019 which showed 3 polyps: 1 TA, 1 hyperplastic and 1 colonic mucosa. Repeat was recommended in 5 years. She denies hematemesis, hematochezia or melena. PREVIOUS (09/04/23 Dameon Live): Ms. Street presents to the clinic today for follow-up. 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 She reports she was not contacted by the hospital to schedule her CT scan ordered at last OV. The patient continues to complain of abdominal distension, bloating, and acid reflux. She still has dysphagia to solid foods despite EGD with dilation 04/2023. She has slowly tapered her Reglan, she takes it only as needed. She denies hematemesis hematochezia or melena. PREVIOUS (11/11/23 Dameon Live): Ms. Street returns to the clinic today for follow-up. She did not undergo botox injection during EGD on 09/15/23. Her symptoms are unchanged. The patient continues to complain of dysphagia. She reports dysphagia every other day while eating. She continues to complain of abdominal bloating as well. CT abdomen has been ordered twice and not done. The patient states the hospital has not contacted her to schedule the procedure. Will order CT again today for assessment. She has tapered her Reglan and takes 10mg once daily now. She takes pantoprazole 40mg as needed. She denies hematemesis, hematochezia or melena. CURRENT (01/07/24 BErmias Live): Ms. Street presents to the clinic today for follow-up. CT abdomen pelvis with contrast on 11/26/2023 revealed mild mucosal thickening of the descending and sigmoid colon without pericolonic inflammatory changes. Clinical correlation recommended. Direct visualization may be of benefit. She continues to complain of early satiety, dysphagia, and abdominal bloating. She does wish to have EGD with Botox injection performed at this time. She has discontinued Reglan use. She denies hematemesis, hematochezia or melena. JEREMY LIVE MSN, DIRECTOR HEMATOLOGY, VICE PRESIDENT [employer] [address] [facility], [place], [address], [facility] - [place] & [place] 01/07/2024 16:36:40 03/18/2024 text/html PREVIOUS ( 4 Dameon Live): Ms. Street is a 63-year-old female who was referred by Karishma Espinal APRN for abdominal distension. She underwent barium swallow at [facility] 03/16/23 which showed small sliding-type hiatal hernia with gastroesophageal reflux and esophageal dysmotility. She has been on Reglan for the last 2-3 years, no diagnosis of diabetes or gastroparesis to her knowledge. She then underwent EGD with dilation for dysphagia on 05/15/23 at [facility] which showed reactive gastropathy.The patient presents to the clinic today complaining of abdominal distension, bloating and gas. She reports she feels full quickly. Her appetite is not decreased but she experiences early satiety after eating only a couple of bites of food. She continues to report intermittent dysphagia after EGD with dilation. She denies any dietary triggers. She wakes up in the morning nauseated and takes Reglan which provides her relief. She was started on this medication 2-3 years ago and has been taking it 2-3 times daily since that time. She did previously undergo sucrose breath test which was positive. She reports taking Sucraid previously and does not think it made a difference in her symptoms. She denies any signs or symptoms of tardive dyskinesia. She denies a history of diabetes or gastroparesis. She has not had any further motility workup for esophageal dysmotility found on esophagram. She reports she has not seen a development technologist in many years. She denies weight loss, she is gaining weight. She does not use a GLP-1 agonist. She reports one soft bowel movement daily. Her last colonoscopy was at [facility] with Dr. Sanchez on 05/09/2019 which showed 3 polyps: 1 TA, 1 hyperplastic and 1 colonic mucosa. Repeat was recommended in 5 years. She denies hematemesis, hematochezia or melena. PREVIOUS (09/04/23 B. Live): Ms. Street presents to the clinic today for follow-up. 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 She reports she was not contacted by the hospital to schedule her CT scan ordered at last OV. The patient continues to complain of abdominal distension, bloating, and acid reflux. She still has dysphagia to solid foods despite EGD with dilation 04/2023. She has slowly tapered her Reglan, she takes it only as needed. She denies hematemesis hematochezia or melena. PREVIOUS (11/11/23 B. Live): Ms. Street returns to the clinic today for follow-up. She did not undergo botox injection during EGD on 09/15/23. Her symptoms are unchanged. The patient continues to complain of dysphagia. She reports dysphagia every other day while eating. She continues to complain of abdominal bloating as well. CT abdomen has been ordered twice and not done. The patient states the hospital has not contacted her to schedule the procedure. Will order CT again today for assessment. She has tapered her Reglan and takes 10mg once daily now. She takes pantoprazole 40mg as needed. She denies hematemesis, hematochezia or melena. PREVIOUS (01/07/24 B. Live): Ms. Street presents to the clinic today for follow-up. CT abdomen pelvis with contrast on 11/26/2023 revealed mild mucosal thickening of the descending and sigmoid colon without pericolonic inflammatory changes. Clinical correlation recommended. Direct visualization may be of benefit. She continues to complain of early satiety, dysphagia, and abdominal bloating. She does wish to have EGD with Botox injection performed at this time. She has discontinued Reglan use. She denies hematemesis, hematochezia or melena. CURRENT (03/18/24): Ms. Street is a pleasant 63-year-old female with chronic early satiety and abdominal bloating who presents to the office today for follow-up. She recently underwent colonoscopy and EGD with botox injection at the GE junction due to previous Manometry that was suggestive of EGJ outflow obstruction. She did not notice change in her symptoms afterwards, although she has not complained of much dysphagia. Her primary complaint is sensation that food sits in her stomach for long periods of time after eating. She reports a history of normal gastric emptying study at [facility]. She states 1 week following her recent colonoscopy, she felt better for a few days, but then her symptoms recurred. She reports regular soft BMs but does note sensation of incomplete evacuation. Jun Ledezma PA-C [address], [place], [address], [place] - [facility] - [place] & [place] 03/18/2024 14:36:11 04/15/2024 text/html PREVIOUS ( 4 B. Live): Ms. Street is a 63-year-old female who was referred by Karishma Espinal APRN for abdominal distension. She underwent barium swallow at [facility] 03/16/23 which showed small sliding-type hiatal hernia with gastroesophageal reflux and esophageal dysmotility. She has been on Reglan for the last 2-3 years, no diagnosis of diabetes or gastroparesis to her knowledge. She then underwent EGD with dilation for dysphagia on 05/15/23 at [facility] which showed reactive gastropathy.The patient presents to the clinic today complaining of abdominal distension, bloating and gas. She reports she feels full quickly. Her appetite is not decreased but she experiences early satiety after eating only a couple of bites of food. She continues to report intermittent dysphagia after EGD with dilation. She denies any dietary triggers. She wakes up in the morning nauseated and takes Reglan which provides her relief. She was started on this medication 2-3 years ago and has been taking it 2-3 times daily since that time. She did previously undergo sucrose breath test which was positive. She reports taking Sucraid previously and does not think it made a difference in her symptoms. She denies any signs or symptoms of tardive dyskinesia. She denies a history of diabetes or gastroparesis. She has not had any further motility workup for esophageal dysmotility found on esophagram. She reports she has not seen a development technologist in many years. She denies weight loss, she is gaining weight. She does not use a GLP-1 agonist. She reports one soft bowel movement daily. Her last colonoscopy was at [facility] with Dr. Sanchez on 05/09/2019 which showed 3 polyps: 1 TA, 1 hyperplastic and 1 colonic mucosa. Repeat was recommended in 5 years. She denies hematemesis, hematochezia or melena. PREVIOUS (09/04/23 B. Live): Ms. Street presents to the clinic today for follow-up. 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 She reports she was not contacted by the hospital to schedule her CT scan ordered at last OV. The patient continues to complain of abdominal distension, bloating, and acid reflux. She still has dysphagia to solid foods despite EGD with dilation 04/2023. She has slowly tapered her Reglan, she takes it only as needed. She denies hematemesis hematochezia or melena. PREVIOUS (11/11/23 BErmias Liev): Ms. Street returns to the clinic today for follow-up. She did not undergo botox injection during EGD on 09/15/23. Her symptoms are unchanged. The patient continues to complain of dysphagia. She reports dysphagia every other day while eating. She continues to complain of abdominal bloating as well. CT abdomen has been ordered twice and not done. The patient states the hospital has not contacted her to schedule the procedure. Will order CT again today for assessment. She has tapered her Reglan and takes 10mg once daily now. She takes pantoprazole 40mg as needed. She denies hematemesis, hematochezia or melena. PREVIOUS (01/07/24 BErmias Live): Ms. Street presents to the clinic today for follow-up. CT abdomen pelvis with contrast on 11/26/2023 revealed mild mucosal thickening of the descending and sigmoid colon without pericolonic inflammatory changes. Clinical correlation recommended. Direct visualization may be of benefit. She continues to complain of early satiety, dysphagia, and abdominal bloating. She does wish to have EGD with Botox injection performed at this time. She has discontinued Reglan use. She denies hematemesis, hematochezia or melena. PREVIOUS (03/18/24): Ms. Street is a pleasant 63-year-old female with chronic early satiety and abdominal bloating who presents to the office today for follow-up. She recently underwent colonoscopy and EGD with botox injection at the GE junction due to previous Manometry that was suggestive of EGJ outflow obstruction. She did not notice change in her symptoms afterwards, although she has not complained of much dysphagia. Her primary complaint is sensation that food sits in her stomach for long periods of time after eating. She reports a history of normal gastric emptying study at [facility]. She states 1 week following her recent colonoscopy, she felt better for a few days, but then her symptoms recurred. She reports regular soft BMs but does note sensation of incomplete evacuation. CURRENT (04/15/24): Ms. Street returns to the office today for follow-up. Recent KUB indicated constipation. Linzess 72 mcg was prescribed, but she states the pharmacy informed her they did not receive the rx. She continues to experience bloating and early satiety. No changes reported otherwise. Jun Ledezma PA-C [address], [place], [id number], [place] - [facility] - [place] & [place] 04/15/2024 15:32:22 05/20/2024 text/html PREVIOUS ( 4): Ms. Street is a pleasant 63-year-old female with chronic early satiety and abdominal bloating who presents to the office today for follow-up. She recently underwent colonoscopy and EGD with botox injection at the GE junction due to previous Manometry that was suggestive of EGJ outflow obstruction. She did not notice change in her symptoms afterwards, although she has not complained of much dysphagia. Her primary complaint is sensation that food sits in her stomach for long periods of time after eating. She reports a history of normal gastric emptying study at [facility]. She states 1 week following her recent colonoscopy, she felt better for a few days, but then her symptoms recurred. She reports regular soft BMs but does note sensation of incomplete evacuation. PREVIOUS (04/15/24): Ms. Street returns to the office today for follow-up. Recent KUB indicated constipation. Linzess 72 mcg was prescribed, but she states the pharmacy informed her they did not receive the rx. She continues to experience bloating and early satiety. No changes reported otherwise. CURRENT (05/20/24): Ms. Street returns to the office today for follow-up regarding bloating, early satiety, and altered bowel habits. I previously prescribed low dose Linzess due to KUB indicating constipation. She did not start the medication due to fear of it causing diarrhea. Her chronic symptoms are unchanged. She is unsure where to go from here. She does not like taking medications, but only feels well if she doesn't eat. Jun Ledezma PA-C [address], [place], [id number], [place] [facility] - [place] & [place] 05/20/2024 15:22:02 OBGyn Episode No OBEpisode recorded.
--- OUTSIDE RECORDS SUMMARY | 2024-12-12 13:36 | XMS_ITS | Data Portability ---
Author Organization [facility] [place] Address [address] [place] [address] Care Team Providers Care Energy Conservation Technician Name Role Phone PABLO GOLDSTEIN Primary Care Provider Assessment No assessment recorded. Plan of Treatment Reminders Order Date Submit Date Provider Last Modified By Organization Details Last Modified Time Details Appointments None recorded. Lab kidney stone analysis [address], [address], 4 07:38:44 urinalysis , dipstick 2022 023 formerly [facility], [address], 3 15:13:26 Referral None recorded. Procedures None recorded. Surgeries None recorded. Imaging XR, abdomen, 1 view [address] (Central Scheduling), [address] [place] [address] [place], [address], 3 16:53:47 Medication Orders None recorded. Patient TargetsNo targets recorded. Patient InstructionsNo instructions recorded. Reason for Referral None Reported. Results Created Date Observation Date Name Description Value Unit Range Abnormal Flag Note LastModifiedBy Organization Detail LastModifiedTime 12/18/19 23 12/17/2022 urina lysis , dipst ick Leukocytes (reference range) negati ve Not Available [facility], [address], 12/17/2022 10:00:45 12/18/19 23 12/17/2022 urina lysis , dipst ick Nitrite (reference range:) negati ve Not Available [address], [address], 12/17/2022 10:00:45 12/18/19 23 12/17/2022 urina lysis , dipst ick Urobilinogen (reference range) 1 Not Available [address], [address], 12/17/2022 10:00:45 12/18/19 23 12/17/2022 urina lysis , dipst ick Protein (reference range) 30 Not Available [address], [address], 12/17/2022 10:00:45 12/18/19 23 12/17/2022 urina lysis , dipst ick pH (reference range 5-8.5) 6.0 Not Available [address], [address], 12/17/2022 10:00:45 12/18/19 23 12/17/2022 urina lysis , dipst ick Blood (reference range:) modera te Not Available [address], [address], 12/17/2022 10:00:45 12/18/19 23 12/17/2022 urina lysis , dipst ick Specific [place] (reference range) 1.025 Not Available [address], [address], 12/17/2022 10:00:45 12/18/19 23 12/17/2022 urina lysis , dipst ick Ketone (reference range) negati ve Not Available [facility] [address], [address], 12/17/2022 10:00:45 12/18/19 23 12/17/2022 urina lysis , dipst ick Bilirubin (reference range) small Not Available [facility] [address], [address], 12/17/2022 10:00:45 12/18/19 23 12/17/2022 urina lysis , dipst ick Glucose (reference range) negati ve Not Available [address], [address], 12/17/2022 10:00:45 08/07/19 24 08/07/2023 BASIC METAB OLIC PANEL sodium 142 mmol/ L 137-14 7 Not Available [facility] (Pre-Op Clinic) [address] [place] [address] [place], [address], 08/07/2023 09:37:41 08/07/19 24 08/07/2023 BASIC METAB OLIC PANEL potassium 4.1 mmol/ L 3.5-5. 1 Not Available [facility] (Pre-Op Clinic) [address] [place] [address] [place], [address], 08/07/2023 09:37:41 08/07/19 24 08/07/2023 BASIC METAB OLIC PANEL chloride 111 mmol/ L 98-110 high Not Available [facility] (Pre-Op Clinic) [address] [place] [address] [place], [address], 08/07/2023 09:37:41 08/07/19 24 08/07/2023 BASIC METAB OLIC PANEL carbon dioxide 26 mmol/ L 21-30 Not Available [facility] (Pre-Op Clinic) [address] [place] [address] [place], [address], 08/07/2023 09:37:41 08/07/19 24 08/07/2023 BASIC METAB OLIC PANEL anion gap 5 mmol/ L 6-14 low Not Available [facility] (Pre-Op Clinic) [address] [place] [address] [place], [address], 08/07/2023 09:37:41 08/07/19 24 08/07/2023 BASIC METAB OLIC PANEL glucose 101 mg/dL 70-115 Not Available [facility] (Pre-Op Clinic) [address] [place] [address] [place], [address], 08/07/2023 09:37:41 08/07/19 24 08/07/2023 BASIC METAB OLIC PANEL BUN 12 mg/dL 7-17 Not Available [facility] (Pre-Op Clinic) [address] [place] [address] [place], [address], 08/07/2023 09:37:41 08/07/19 24 08/07/2023 BASIC METAB OLIC PANEL creatinine 0.5 mg/dL 0.5-1. 5 Not Available [facility] (Pre-Op Clinic) [address] [place] [address] [place], [address], 08/07/2023 09:37:41 08/07/19 24 08/07/2023 BASIC METAB OLIC PANEL BUN/creatini ne ratio 24 ratio 10-20 high Not Available [facility] (Pre-Op Clinic) [address] [place] [address] [place], [address], 08/07/2023 09:37:41 08/07/19 24 08/07/2023 BASIC METAB OLIC PANEL glom filtration rate 132 mL/mi n >60- Not Available [facility] (Pre-Op Clinic) [address] [place] [address] [place], [address], 08/07/2023 09:37:41 08/07/1908/07/2023 BASIC METAB OLIC PANEL osmolality (calculated) 295 mosmo l/kg 275-30 1 OSMOL ALITY IS A CALCU LATIO N UTILI ZING THE SERUM /PLAS MA SODIU M, GLUCO SE AND UREA NITRO GEN (BUN) LEVEL S. FOR THE MOST ACCUR ATE RESUL T A MEASU RED SERUM OSMOL ALITY IS SUGGE STED. Not Available [facility] (Pre-Op Clinic) [address] [place] [address] [place], [address], 08/07/2023 09:37:41 08/07/1908/07/2023 BASIC METAB OLIC PANEL calcium 9.6 mg/dL 8.5-10 .8 Not Available [facility] (Pre-Op Clinic) [address] [place] [address] [place], [address], 08/07/2023 09:37:41 08/07/1908/07/2023 BASIC METAB OLIC PANEL note Unles s other crespo noted testi ng perfo rmed at: [facility] [address] [place] [address] Cresencio oden MD Not Available [facility] (Pre-Op Clinic) [address] [place] [address] [place], [address], 08/07/2023 09:37:41 08/19/19 24 08/19/2023 KIDNE Y STONE JUAN J SIS note Unles s other crespo noted testi ng perfo rmed at: [facility] [address] [place] [address] [phone] Cresencio oden MD CLIA: [id number] Not Available [facility] (Lab Registration) [address] [place], [address], 08/26/2023 14:17:28 08/19/19 24 08/26/2023 KIDNE Y STONE JUAN J SIS source Commen t . Not provi ded Not Available [facility] (Lab Registration) [address] [place], [address], 08/26/2023 14:17:28 08/19/19 24 08/26/2023 KIDNE Y STONE JUAN J SIS color Cantrell Not Available [facility] (Lab Registration) [address] [place], [address], 08/26/2023 14:17:28 08/19/1919 0808/26/2023 KIDNE Y STONE JUAN J SIS size 2x1 mm Multi ple piece s recei herb. Dimen sions of the large st piece repor justin. Not Available [facility] (Lab Registration) [address], [place], [address], 08/26/2023 14:17:28 08/19/19 24 08/26/2023 KIDNE Y STONE JUAN J SIS weight 17 mg Not Available [facility] (Lab Registration) [address], [place], [address], 08/26/2023 14:17:28 08/19/19 24 08/26/2023 KIDNE Y STONE JUAN J SIS composition Commen t . Perce ntage (Repr esent s the % compo sitio n) Not Available [facility] (Lab Registration) [address], [place], [address], 08/26/2023 14:17:28 08/19/19 24 08/26/2023 KIDNE Y STONE JUAN J SIS Ca oxalate dihydrate 80 % SENT TO REFER ENCE LAB Not Available [facility] (Lab Registration) [address], [place], [address], 08/26/2023 14:17:28 08/19/19 24 08/26/2023 KIDNE Y STONE JUAN J SIS calcium oxalate monohydrate 10 % SENT TO REFER ENCE LAB Not Available [facility] (Lab Registration) [address], [place], [address], 08/26/2023 14:17:28 08/19/19 24 08/26/2023 KIDNE Y STONE JAUN J SIS calcium phosphate (hydroxyl) 10 % Not Available [facility] (Lab Registration) [address] [place], [address], 08/26/2023 14:17:28 08/19/19 24 08/26/2023 KIDNE Y STONE JUAN J SIS photo Brady t Ermias Photo graph will follo w under a separ ate cover Not Available [facility] (Lab Registration) [address], [place], [address], 08/26/2023 14:17:28 08/19/19 24 08/26/2023 KIDNE Y STONE JUAN J SIS comment Commen t . Calci um phosp hate (hydr oxyl form) inclu buster hydro xyapa tite, amorp hous calci um phosp hate, and whitl ockit e. [place] xyapa tite is the most commo n of the calci um phosp hate salts found in human kidne y stone s. SENT TO REFER ENCE LAB Not Available [facility] (Lab Registration) [address], [place], [address], 08/26/2023 14:17:28 08/19/19 24 08/26/2023 KIDNE Y STONE JUAN J SIS comment: Commen t . Physi harshal quest ions regar ding Calcu li Juan J sis conta ct [facility] at: [phone]. SENT TO REFER ENCE LAB Not Available [facility] (Lab Registration) [address], [place], [address], 08/26/2023 14:17:28 08/19/19 24 08/26/2023 KIDNE Y STONE JUAN J SIS please note: Commen t . Calcu li repor t will follo w via compu ter, mail or couri er andrew ramos. SENT TO REFER ENCE LAB Not Available [facility] (Lab Registration) [address], [place], [address], 08/26/2023 14:17:28 08/19/19 24 08/26/2023 KIDNE Y STONE JUAN J SIS disclaimer: Brady t . This test was devel oped and its perfo rmanc e samantha cteri stics deter mined by [facility]. It has not been clear ed or appro herb by the Food and Drug Admin istra tion. Not Available [facility] (Lab Registration) [address], [place], [address], 08/26/2023 14:17:28 01/08/26/2023 KIDNE Y STONE JUAN J SIS pdf . Perfo rmed at: [facility] [address] [facility] , [place], [place] [id number] Lab Direc tor: Shamir dean PhD, Phone : [phone] Not Available [facility] (Lab Registration) [address] , [place], [address], 08/26/2023 14:17:28 07/09/20 23 07/09/2023 XR, abdom en, 1 view [facility] [address] [place] [address] [phone] (Phone ) DIAGNO STIC IMAGIN G REPORT ------ ------ ------ ------ ------ ------ ------ ------ ----- Reid emerson Name: [address] Reid emerson No: [id number] 1 Medica l Record No: [id number] Date of : 1959 Access ion No: [id number] Date of Exam: 2022 Reid emerson Type: Outpat ient Orderi ng Physic marlene: PAUL PIZANO ------ ------ ------ ------ ------ ------ ------ ------ ----- FINAL REPORT PROCED URE: ABD KUB 1V CLINIC AL HISTOR Y: N20.1 CALCUL US OF URETER FINDIN GS: The visual ized intest inal gas patter n appear s unrema rkable withou t eviden ce to sugges t obstru ction. Bilate ral nephro lithia sis right greate r than left. Larges t stone on the right measur ing up to 8 mm. Pelvic calcif icatio ns are likely phlebo liths. IMPRES MARGARITA: Bilate ral nephro lithia sis. Review ed, Interp reted and Dictat ed by Juan Mohan MD Transc ribed by Milan Olivas ticate d and Electr onical ly Signed by Juan Mohan MD on 2022 03:43: 42 PM EASTER N CC'ed Logic: Orderi ng Provid er: HARINDER Jack CC Provid er: VINNIE SHAH Attend ing Provid er: HARINDER Jack Referr ing Provid er: HARINDER Jack Admitt ing Provid er: HARINDER Jack [email or web address] [facility] (Central Scheduling) [address] [place] [address] [place], [address], 07/13/2023 19:00:33 08/11/19 24 08/11/2023 elect paul atkins am No observ ation record ed. [email or web address] Not Available 2023 13:05:35 08/19/19 24 08/19/2023 XR, abdom en, 1 view [facility] [address] [place] [address] Phone: Fax: Name: [address] Exam Date: 024 : 1959 Age 63 years Gender : F Access ion: [id number] Physic marlene: PAUL PIZANO Facili ty: [facility] Facili ty HSV: Outpat ient Exam: ABD KUB 1V KUB. HISTOR Y: Nephro lithia sis. COMPAR JAYDE: None. FINDIN GS: A single view of the abdome n demons trates a nonspe cific bowel gas patter n. Multip le calcif ic densit ies overli e the bilate ral renal shadow s. On the right larges t indivi dual stone measur ing up to 5 mm on the left approx imatel y 3 mm. Degene rative change s with levocu rvatur e of the lumbar spine. Probab le phlebo liths in the pelvis . IMPRES MARGARITA: Multip le calcif ic densit ies overli e the bilate ral renal shadow s. On the right larges t indivi dual stone measur ing up to 5 mm on the left approx imatel y 3 mm. Dictat ed By: ABDIEL NAVA Transc ribed By: ABDIEL NAVA Transc ribed On: 9:13 AM Electr onical ly signed by: ABDIEL NAVA Thank you for referr ROSE Meehan to [facility]. Legall y authen ticate d by POPE ABDIEL Ramirez DO 08-19 09:13: 18 CC'ed Logic: Orderi ng Provid er: HARINDER Jack CC Provid er: VINNIE SHAH Attend ing Provid er: HARINDER Jack Referr ing Provid er: HARINDER Jack Admitt ing Provid er: HARINDER Jack [email or web address] [facility] (Radiology) [address] [place] [address] [place], [address], 08/20/2023 15:38:53 Result Notes None recorded. Problems Name Problem SNOMED Code Status Onset Date Resolution Date Notes Provider Name and Address Organization Details Recorded Time Kidney stone 99317383 Active 023 Edreggie white, DEJAN - [facility] - [place] & [place] 3 09:48:45 Arthritis 9105671 Active 023 Mehdi Root cindy, DEJAN - [facility] - [place] & [place] 3 09:48:51 Problem Notes None recorded. Procedures Surgical History Date Name Laterality Status Provider Name and Address Organization Details Recorded Time Cancer Surgery completed Mehdi WYLIE - [facility] - [place] [facility] [place] 08/19/2023 11:01:28 Tubal Ligation completed Mehdi WYLIE - [facility] - [place] [facility] [place] 12/17/2022 09:49:57 excision of basal cell carcinoma completed Mehdi WYLIE - [facility] - [place] & [place] 12/17/2022 09:50:08 Imaging Results Imaging Date Name Status LastModified by Organization Details LastModified Time 07/09/2023 XR, abdomen, 1 view completed [email or web address] [facility] (Central Scheduling) [address] [place] [address] [place], [address], 07/13/2023 19:00:33 08/11/2023 electrocardiogram completed [email or web address] Informa tion not available 08/31/2023 13:05:35 08/19/2023 XR, abdomen, 1 view completed [facility] (Radiology) [address] , [place], [address], 08/20/2023 15:38:53 Procedure Notes None recorded. Medical Equipment None Reported. Allergies No known drug allergies Medications Name Sig Start Date Stop Date Status Note LastModified by Organization Details LastModified Time methocarbamol 500 mg tablet 07/08 completed Not Available Not Available Not Available doxycycline hyclate 100 mg capsule 07/08 completed Not Available Not Available Not Available azithromycin 250 mg tablet 07/08 completed Not Available Not Available Not Available hydrocodone 5 mg-acetaminophen 325 mg tablet 07/08 completed Not Available Not Available Not Available meloxicam 15 mg tablet 07/08 completed Not Available Not Available Not Available prednisone 20 mg tablet 07/08 completed Not Available Not Available Not Available ketorolac 10 mg tablet 12/17 completed Not Available Not Available Not Available terbinafine HCl 250 mg tablet 12/17 completed Not Available Not Available Not Available lorazepam 0.5 mg tablet 07/08 completed Not Available Not Available Not Available tamsulosin 0.4 mg capsule 07/08 completed Not Available Not Available Not Available benzonatate 100 mg capsule 07/08 completed Not Available Not Available Not Available simvastatin 20 mg tablet 12/17 completed Not Available Not Available Not Available prednisone 5 mg tablets in a dose pack 07/08 completed Not Available Not Available Not Available ibuprofen 600 mg tablet 07/08 completed Not Available Not Available Not Available albuterol sulfate HFA 90 mcg/actuation aerosol inhaler 07/08 completed Not Available Not Available Not Available ondansetron 4 mg disintegrating tablet 07/08 completed Not Available Not Available Not Available cefdinir 300 mg capsule active Not Available Not Available Not Available metoclopramide 10 mg tablet active Not Available Not Available Not Available oxycodone 5 mg tablet 07/08 completed Not Available Not Available Not Available varenicline tartrate 0.5 mg (11)-1 mg (42) tablets in a dose pack 07/08 completed Not Available Not Available Not Available naloxone 4 mg/actuation nasal spray 07/08 completed Not Available Not Available Not Available Vitals Date Recorded Body height Body mass index (BMI) Body temperature Provider Name and Address Organization Details Last Updated DateTime 12/17/2022 147.32 cm 115 kg/m2 97.6 [degF] Mehdi WYLIE [facility] & [place] 12/17/2022 09:51:03 Date Recorded Body height Body mass index (BMI) Body weight Body temperature Provider Name and Address Organization Details Last Updated DateTime 07/09/2023 147.32 cm 24 kg/m2 46640.12 g 97.9 [degF] Mehdi WYLIE [facility] & [place] 07/09/2023 13:10:07 Date Recorded Body height Body mass index (BMI) Body weight Body temperature Provider Name and Address Organization Details Last Updated DateTime 08/19/2023 147.32 cm 24 kg/m2 40413.12 g 97.7 [degF] Mehdi WYLIE [facility] & [place] 08/19/2023 11:01:09 Social History Question Answer Notes LastModified by Mister Spex Details LastModified Time Tobacco Smoking Status Current Every Day [facility] [place] 12/17/2022 09:49:47 Do You Have An Advance Directive? No [email or web address] Information not available 08/19/2023 Are You Blind Or Do You Have Difficulty Seeing? No [email or web address] Information not available 08/19/2023 What Was The Date Of Your Most Recent Tobacco Screening? 07/08/2023 [email or web address] Information not available 08/19/2023 Are You Passively Exposed To Smoke? Yes [email or web address] Information not available 08/19/2023 How Much Tobacco Do You Smoke? 1 PPD [email or web address] Information not available 08/19/2023 How Many Years Have You Smoked Tobacco? 45 [email or web address] Information not available 08/19/2023 Sex: Unknown Functional Status Question Answer Note LastModified by OpenLogic[employer]at ion Details LastModified Time What is your level of alcohol consumption? None [email or web address] Information not available 12/17/2022 What is your exercise level? Occasional [email or web address] Information not available 08/19/2023 Mental Status Question Answer Note LastModified by Organization D etails LastModified Time Do you feel stressed (tense, restless, nervous, or anxious, or unable to sleep at night)? [id number] [email or web address] Information not available 08/19/2023 Family History Relationship Description Onset Age of this Age Resolved Age Notes LastModified by Organization Details LastModified Time Mother Family history unknown dec [email or web address] Not available 2022 09:49:24 Brother Family history unknown Not available 2022 09:49:24 Sister Family history unknown [email or web address] Not available 2022 09:49:24 Father Gunshot wound dec [email or web address] Not available 2022 09:49:35 Medical History Condition Response Arthritis Y Kidney or Bladder Problems Y COPD Y Lung Disease Y GI Problems Y High Cholesterol Y Gynecological HistoryNo gynecological history recorded. Obstetrics History GPAL:G 0 P 0 0 0 0 Past Encounters Encounter ID Performer Location Encounter Start Date Encounter Closed Date Diagnosis/Indication Diagnosis SNOMED-CT Code Diagnosis ICD10 Code Diagnosis Note [id number] Alessandro Pizano Jr, MD [facility] [address] [address] 12/17/2022 09:23:07 12/17/2022 09:59:57 Kidney stone 47264021 N20.0 Patient with history of kidney stones. Recent recurrence of left flank pain caused an ER visit on December 13. CT scan there showed 2 small 1.5 mm stones in the distal left ureter. There were also bilateral nonobstruc ting stones. Patient has had no pain now for 3 days but has not seen stones pass but was not straining her urine. We will send the stones have passed since they were very small. She is to return if her symptoms should recur. We discussed causes of kidney stones and she admittedly does not drink much fluid at all. We discussed increasing her fluid status to at least 60 oz of fluid per day to decrease her risk for further stone formation. [id number] Alessandro Pizano Jr, MD [facility] [address] [place] [address] [place] [address] 07/09/2023 13:02:36 07/09/2023 13:56:22 Ureteric stone 18171775 N20.1 Patient with history of nephrolith iasis. She had a recent scan on June 29 showed a 4 mm obstructin g stone in the left distal ureter. She has not had any pain now for 8 days and has likely passed that stone. She has been able pass previous stones. Has any further pain she will know. Kidney stone 81072796 N2 0.0 Patient with history of kidney stones. Recent CT scan on July 07 showed bilateral stones. We will obtain a KUB today and if the stones are readily visible we discussed ESWL. [id number] Alessandro Pizano Jr, MD [facility] [address] [address] 08/19/2023 10:38:21 08/19/2023 11:22:25 Kidney stone 32629528 N20.0 Patient with history of kidney stones. Recent CT scan on July 07 showed bilateral stones. Patient underwent bilateral ESWL on August 07. She denies any postop problems. KUB today shows couple of residual stone fragments in the left renal pelvis as well as in the right renal pelvis. There are some small stones in the right lower pole which were not treated at the time of the ESWL as I focused on the upper and middle pole stone. We discussed the findings and she is to return on an as-needed basis. Health Concerns Section Related Observation LastModified by Organization Detai ls LastModified Time None Recorded Concern Status LastModified by Organization Details LastModified Time None Recorded Advance Directives Directive N: Payers Insurance Date Sequence Insurance Name Policy Number Policy Velez Covered Member ID Velez Member ID Guarantor Name 08/24/2023 1 ROCKY Mccarty [place] [place] [id number] Notes Date Note Type Note Provider Name and Address Organization Details Recorded Time 12/17/2022 text/html Patient is a 62-year-old white female with a history of kidney stones. She was emergency room 4 days ago with left flank pain associated with gross hematuria and nausea. CT scan showed bilateral nonobstructing stones and 2 small 1.5 mm stones in the distal ureter. She returns today in follow-up. She states she is had no pain for several days. She states the hematuria has cleared up. Alessandro Pizano Jr, MD [address] [facility], [address], [place], [address], [facility] & [place] 12/17/2022 10:06:41 07/09/2023 text/html Patient is a 63-year-old white female with a history of nephrolithiasis. She had a recurrence of left flank pain on June 27. She went to the emergency room at [facility] on 06/29. His CT scan there showed a 4 mm distal ureteral stone and bilateral nonobstructing stones. She denies any associated fever or chills but did have some nausea and vomiting. Largest nonobstructing stone right kidney was 5 mm and the largest on left side was 7 mm. She states that she is not had any pain for 3 days now. Denies having seen the stone. Her white count and renal function were within normal limits at her emergency room visit on 06/29. Alessandro Pizano Jr, MD [address] [facility], [address], [place], [address], [facility] & [place] 07/09/2023 16:23:46 08/19/2023 text/html Patient is a 63-year-old white female with bilateral nonobstructing stones status post bilateral ESWL on August 07. She denies any problems postoperatively and brings in some stone fragments today. KUB prior to her visit this morning shows a small residual stone fragment in the left kidney and some stones in the right lower pole which were not treated at the time. A residual stone fragment noted in the renal pelvis but overall a good result. Alessandro Pizano Jr, MD [address], [address], [place], [address], [facility] - [place] & [place] 08/19/2023 12:37:27 OBGyn Episode No OBEpisode recorded.
== END 2024-12-09 23:59 | disposition home or self-care (01) ==
LOC: LAB.DROPOF 12-12 13:34
PROVIDERS: PCP Nurse Practitioner Family; Visit Provider Nurse Practitioner Family
DX: E78.5 Hyperlipidemia, unspecified (principal); M79.10 Myalgia, unspecified site; R42 Dizziness and giddiness; R23.2 Flushing; I10 Essential (primary) hypertension; E55.9 Vitamin D deficiency, unspecified; Z68.24 Body mass index [BMI] 24.0-24.9, adult; F17.210 Nicotine dependence, cigarettes, uncomplicated
CPT/HCPCS: 80053; 80061; 82306; 82533; 82607; 82728; 83735; 84443; 85025; 86140

== ENCOUNTER 2024-12-13 07:47 | Outpatient (CLI) | payer OTHER, SELFPAY ==
--- NOTE | 2024-12-13 08:00 | CA_ITS ---
FINAL REPORT CLINICAL HISTORY: DIZZINESS HTN COMPARISON: None FINDINGS: RIGHT CAROTID: CCA PSV -91.5 cm/sec ICA PSV -89 cm/sec ICA/CCA PSV ratio -1.25. Comments: Mild plaque disease is noted. LEFTCAROTID: CCA PSV -86. cm/sec ICA PSV -88. cm/sec ICA/CCA PSV ratio -1.13. Comments: Mild plaque disease is noted. Antegrade flow is seen within the vertebral arteries. IMPRESSION: Carotid stenosis classified less than 50% Reviewed, Interpreted and Dictated by Juan Mohan MD Transcribed by Maday Ledezma Authenticated and [facility]
== END 2024-12-13 23:59 | disposition home or self-care (01) ==
PROVIDERS: PCP Nurse Practitioner Family; Visit Provider Nurse Practitioner Family
DX: I65.23 Occlusion and stenosis of bilateral carotid arteries (principal); I10 Essential (primary) hypertension
CPT/HCPCS: 93880

== ENCOUNTER 2025-03-14 09:14 | Outpatient (CLI) | payer OTHER, SELFPAY ==
--- OUTSIDE RECORDS SUMMARY | 2025-03-14 09:26 | XMS_ITS | Encounter Summary ---
Author Organization [facility] Address [address] [place] [address] Care Team Providers Care It Infrastructure Consultant Name Role Phone Giovana Alvarez APRN Primary Care Provider [phone] Karishma Espinal APRN Primary Care Provider +- [phone] Colleen Umanzor MD Unavailable [phone] Nataly Granados MD Unavailable Encounter Details Date Type Department Care Team (Late st Contact Info) Description 01/16/2023 Orders Only External Location [address] [place] [address] Provider, External Social History Tobacco Use Types Packs/Day Years Used Date Smoking Tobacco: Every Day Alcohol Use Standard Drinks/Week Comments No 0 (1 standard drink = 0.6 oz pur e alcohol) Comments Unknown Sex and Gender Information Value Date Recorded Sex Assigned at Female 04/07/2023 1:07 PM EDT Legal Sex Female 6:11 PM EDT Gender Identity Female 04/07/2023 1:07 PM EDT Sexual Orientation Not on file documented as of this encounter Plan of Treatment Upcoming Encounters Date Type Department Care Team (Late Contact Info) Description 03/29/2025 9:10 AM EDT Appointment PAV G Radiology [address] [place] [address] 03/29/2025 10:45 AM EDT Office Visit Pav CC Head, Neck & Respiratory [address] [facility], 2nd [place] [address] Colleen Umanzor MD [address] [place] [address] documented as of this encounter Procedures Procedure Name Priority Date/Time Associated Diagnosis Comments CT OUTSIDE IMAGES 01/16/2023 12:32 PM EDT documented in this encounter Results * CT OUTSIDE IMAGES (01/16/2023 12:32 PM EDT) Anatomical Region Laterality Modality Computed Tomogra phy 01/16/2023 12:3 2 PM EDT us External Provider IMG CT PROCEDURES Final Result documented in this encounter Visit Diagnoses Not on filedocumented in this encounter Care Teams It Infrastructure Consultant Relationship Specialty Start Date End Date Giovana Alvarez APRN [address] [place] [address] PCP - General 12/07/20 05/27/23 Karishma Espinal APRN [address] [place] [address] PCP - General 05/28/23 Colleen Umanzor MD [address] [place] [address] Surgeon Cardiothoracic Surgery 06/25/23 Nataly Granados MD [address] [place] [address] Consulting Physician Medical Oncology 06/29/23 documented as of this encounter
--- OUTSIDE RECORDS SUMMARY | 2025-03-14 09:26 | XMS_ITS | Encounter Summary ---
Author Organization [facility] Address [address] [place] [address] Care Team Providers Care Visiting Professor Name Role Phone Giovana Alvarez APRN Primary Care Provider [phone] Karishma Espinal APRN Primary Care Provider +- [phone] Colleen Umanzor MD Unavailable [phone] Nataly Granados MD Unavailable Encounter Details Date Type Department Care Team (Late st Contact Info) Description 02/25/2023 Orders Only External Location [address] [place] [address] Provider, External Social History Tobacco [...] EDT Appointment PAV G Radiology [address] [place] [address] 03/29/2025 10:45 AM EDT Office Visit Pav CC Head, Neck & Respiratory [address] [facility], [address]nd [place] [address] Colleen Umanzor MD [address] [place] [address] documented as of this encounter Procedures Procedure Name Priority Date/Time Associated Diagnosis Comments XR OUTSIDE IMAGES 02/25/2023 2:13 PM EDT documented in this encounter Results * XR OUTSIDE IMAGES (02/25/2023 2:13 PM EDT) Anatomical Region Laterality Modality Radiographic Sunitha ging 02/25/2023 2:13 PM EDT us External Provider IMG XR PROCEDURES Final Result documented in this encounter Visit Diagnoses Not on filedocumented in this encounter Care Teams Visiting Professor Relationship Specialty Start Date End Date Giovana Alvarez APRN [address] [place] [address] PCP - General 12/07/20 05/27/23 Karishma Espinal APRN [address] [place] [address] PCP - General 05/28/23 Colleen Umanzor MD [address] [place] [address] Surgeon Cardiothoracic Surgery 06/25/23 Nataly Granados MD [address] [place] [address] Consulting Physician Medical Oncology 06/29/23 documented as of this encounter
--- OUTSIDE RECORDS SUMMARY | 2025-03-14 09:26 | XMS_ITS | Clinical Summary ---
Author Organization [facility] Address [address] [place] [address] Care Team Providers Care Story Reader Name Role Phone Karishma Espinal APRN Primary Care Provider [phone] Colleen Umanzor MD Unavailable [phone] Nataly Granados MD Unavailable Allergies Active Allergy Reactions Criticality Noted Date Comments Sertraline Other - please docum ent in the comment field High 01/22/2024 Panic attacks Medications meloxicam (Mobic) 15 MG tablet Take 1 tablet (15 mg) by mouth daily. Active pantoprazole (Protonix) 40 MG EC tablet Take 1 tablet (40 mg) by mouth Daily. Active Milk Thistle 500 MG capsule 1,000 mg. 01/22/2024 Acti ve FLUoxetine (PROzac) 10 MG capsule Take 1 capsule (10 mg) by mouth daily. 03/17/2024 Active Phosphatidylcho line powder 1,200 mg. 01/22/2024 Active atenolol (Tenormin) 25 MG tablet Take 1 tablet (25 mg) by mouth daily. 06/20/2024 Active atorvastatin (Lipitor) 10 MG tablet 05/25/2024 Active Active Problems Problem Noted Date Diagnosed Date Adenocarcinoma of upper lobe of right lung 06/02 Overview (06/04/2023): 06/02/2023: bronchoscopy, right robotic upper lobectomy, mediastinal lymph node dissection, multilevel intercostal nerve blocks Right chest tube removed on POD2 - stable aeration on follow up CXR Pain control Pathology pending COPD (chronic obstructive pulmonary disease) 12/2022 Overview (06/03/2023): Resume home medications as appropriate. Gastroesophageal reflux disease without esophagi tis 06/01/2023 Overview (06/03/2023): No home meds listed Tobacco use disorder 04/02/2023 Overview (06/03/2023): Cessation counseling if agreeable Second hand smoke exposure 04/02/2023 Resolved Problems Problem Noted Date Diagnosed Date Resolved Date PONV (postoperative nausea and vomiting) 06/01/2023 06/03/2023 Encounters Date Type Department Care Team Description 12/21/2024 10:15 AM EDT Office Visit Pav CC Head, Neck & Respiratory [address] [place] [address] Colleen Umanzor MD Adenocarcinoma of upper lobe of right lung (CMS/HCC) 12/21/2024 8:27 AM EDT - 12/21/2024 11:59 PM EDT Hospital Encounter [facility] [address], [address] [place] [address] Adenocarcinoma of upper lobe of right lung (CMS/HCC) Discharge Disposition: Home or Self Care 12/21/2024 Travel from Last 3 Months Family History Medical History Relation Name Comments Diabetes Mother Hypertension Mother Diabetes Other Hypercholesterolemia Other Hypertension Other Seizures Other Stroke Other Diabetes Sister Hypertension Son Relation Name Status Comments Mother Other Sister Son Social History Tobacco Use Types Packs/Day Years Used Date Smoking Tobacco: Some Days Cigarettes 1 47.6 Started: 07/27/1977 Smokeless Tobacco: Never Tobacco Cessation:Ready to Q uit: No; Counseling Given: No Alcohol Use Standard Drinks/Week Comments No 0 (1 standard drink = 0.6 oz pur e alcohol) Humiliation, Afraid, Rape, and Kick questionnair e Answer Date Recorded Within the last year, have y ou been afraid of your partner or ex-partner? No 06/03/2023 Within the last year, have y ou been humiliated or emotionally abused in other ways by your partner or ex-partner? No Within the last year, have y ou been kicked, hit, slapped, or otherwise physically hurt by your partner or ex-partner? No 06/03/2023 Within the last year, have y ou been raped or forced to have any kind of sexual activity by your partner or ex-partner? No 06/03/2023 Hunger Vital Sign Answer Date Recorded Within the past 12 months, y ou worried that your food would run out before you got the money to buy more. Never true 06/03/20 Within the past 12 months, t he food you bought just didn't last and you didn't have money to get more. Never true 06/03/2023 PRAPARE - Transportation Answer Date Re corded In the past 12 months, has l ack of transportation kept you from medical appointments or from getting medications? No 02/2023 In the past 12 months, has l ack of transportation kept you from meetings, work, or from getting things needed for daily living? No 06/03/2023 Housing Stability Vital Sign Answer Josh e Recorded In the last 12 months, was t here a time when you were not able to pay the mortgage or rent on time? No 06/03/2023 Number of Places Lived in the Last Year Not on f ile 06/03/2023 In the last 12 months, was t here a time when you did not have a steady place to sleep or slept in a half-way (including now)? No 06/03/2023 Utilities Answer Date Recorded In the past 12 months has th e [employer], gas, oil, or water company threatened to shut off services in your home? No 06/03/2023 Comments No Sex and Gender Information Value Date Recorded Sex Assigned at Female 04/07/2023 1:07 PM EDT Legal Sex Female 6:11 PM EDT Gender Identity Female 04/07/2023 1:07 PM EDT Sexual Orientation Not on file Last Filed Vital Signs Vital Sign Reading Time Taken Comments Blood Pressure 154/69 12/21/2024 9:30 AM EDT Pulse 61 12/21/2024 9:24 AM EDT Temperature 36.7 C (98 F) 12/21/2024 9:24 AM EDT Respiratory Rate 16 12/21/2024 9:24 AM EDT Oxygen Saturation 98% 12/21/2024 9:24 AM EDT Inhaled Oxygen Concentration - - Weight 53.2 kg (117 lb 4.6 oz) 12/21/2024 9:24 A M EDT Height 148.6 cm (4' 10.5 ) 03/23/2024 10:39 AM E DT Body Mass Index 24.09 03/23/2024 10:39 AM EDT Plan of Treatment Upcoming Encounters Date Type Department Care Team (Late st Contact Info) Description 03/29/2025 9:10 AM EDT Appointment [facility] G Radiology [address] [place] [address] 03/29/2025 10:45 AM EDT Office Visit Pav CC Head, Neck & Respiratory [address], [address] [place] [address] Colleen Umanzor MD [address] [place] [address] Health Maintenance Due Date Last Done Comments [facility]-Depression Screening 1960 [facility]-HIV Screening 1960 [facility]-Hepatitis C Screening 1960 [facility]-Infant/Child/Adol SDOH Screenings 1960 [facility]- SDOH Screenings 1978 [facility]-Adult SDOH Screenings 1978 [facility]-Pneumococcal Vaccine: 50+ Years (1 of 2 - PCV) 1979 [facility]-Zoster Vaccines (1 of 2) 1979 [facility]-Pap Smear 1981 [facility]-Cervical Cancer Screening 1990 [facility]-HPV/Cotest 1990 CT Colonography 2005 Colonoscopy 2005 FIT-DNA 2005 FIT 2005 FOBT 2005 Sigmoidoscopy 2005 [facility]-Colorectal Cancer Screening 2005 [facility]-Breast Cancer Screening 2010 [id number] Vaccine ( season) 2024 06/12/2021, 08/15/2020, 07/25/2020 [facility]-Influenza Vaccine (#1) 2025 05/27/2024, [facility]-DTaP,Tdap,and Td Vaccines (2 - Td or Tdap) 04/04/2029 04/04/2019 [facility]-RSV Vaccine: 60+ Years or Completed 05/27/2024 [facility]-Lung Cancer Screening Discontinued 2024, 09/21/2024, 06/22/2024, Additional history exists HPV Vaccines Aged Out No longer eligi ble based on patient's age to complete this topic [facility]-HIB Vaccines Aged Out No longer e ligible based on patient's age to complete this topic [facility]-Hepatitis A Vaccines Aged Out No longer eligible based on patient's age to complete this topic [facility]-IPV Vaccines Aged Out No longer e ligible based on patient's age to complete this topic [facility]-Rotavirus Vaccines Aged Out No lo nger eligible based on patient's age to complete this topic Procedures Procedure Name Priority Date/Time Associated Diagnosis Comments CT CHEST WO IV CONTRAST Routine 12/21/2024 8:32 AM EDT Adenocarcinoma of upper lobe of right lung (CMS/HCC) from Last 3 Months Results * CT Chest wo IV Contrast (12/21/2024 8:32 AM EDT) Anatomical Region Laterality Modality Chest Computed Tomogra phy Impressions 12/21/2024 9:30 AM EDT Mild interval growth of pre-existing left upper lobe nodule. No enlarged lymph nodes. CRITICAL RESULT: No. COMMUNICATION: Per this written report. Drafted by Cora Velázquez MD on 12/21/2024 8:56 AM Final report signed by Cora Velázquez MD on 12/21/2024 9:30 AM Narrative 12/21/2024 9:30 AM EDT CLINICAL INDICATION: Non-small cell lung cancer (NSCLC), monitor TECHNIQUE: Multiple CT helical images were obtained from thoracic inlet through upper abdomen without administration of IV contrast. Total DLP (Dose-Length Product): 229.73 mGy.cm. Please note: The reported value represents the total of one or more individual components during the CT acquisition on this date and at this time, and as such, the same value may appear in more than one CT report depending on the interpreting/reporting physicians. COMPARISON: September 21, 2024 FINDINGS: Mediastinum and Pleura: No mediastinal or hilar adenopathy. No pleural or pericardial effusion. Lungs: Interval growth of left upper lobe nodule, 6 m versus 4 mm previously, image 29 of series 3. Small cluster of bronchocentric nodules within left upper lobe, example image 45 of series 3, without change, benign appearing. No new suspicious lung lesions. Status post right upper lobectomy. Upper Abdomen: Bilateral renal cortical cysts. Musculoskeletal: No enlarged axillary or subpectoral lymph nodes. No aggressive osseous lesions. Procedure Note Cora Velázquez MD - 12/21/2024 CLINICAL INDICATION: Non-small cell lung cancer (NSCLC), monitor TECHNIQUE: Multiple CT helical images were obtained from thoracic inlet through upperabdomen without administration of IV contrast. Total DLP (Dose-Length Product): 229.73 mGy.cm. Please note: The reportedvalue represents the total of one or more individual components during theCT acquisition on this date and at this time, and as such, the same valuemay appear in more than one CT report depending on theinterpreting/reporting physicians. COMPARISON: September 21, 2024 FINDINGS: Mediastinum and Pleura: No mediastinal or hilar adenopathy. No pleural orpericardial effusion. Lungs: Interval growth of left upper lobe nodule, 6 m versus 4 mmpreviously, image 29 of series 3. Small cluster of bronchocentric noduleswithin left upper lobe, example image 45 of series 3, without change,benign appearing. No new suspicious lung lesions. Status post right upperlobectomy. Upper Abdomen: Bilateral renal cortical cysts. Musculoskeletal: No enlarged axillary or subpectoral lymph nodes. Noaggressive osseous lesions. IMPRESSION: Mild interval growth of pre-existing left upper lobe nodule. No enlarged lymph nodes. CRITICAL RESULT: No. COMMUNICATION: Per this written report. Drafted by Cora Velázquez MD on 12/21/2024 8:56 AM Final report signed by Cora Velázquez MD on 12/21/2024 9:30 AM us Colleen Umanzor MD IMG CT PROCEDURES Final R esult from Last 3 Months Insurance [employer] Advance Directives * Full Code (Latest Code Status on File) Date Activated Date Inactivated Comments 06/02/2023 12:34 PM 06/04/2023 4:53 PM Question Answer Comments Patient has decision-making capacity? Yes Care Teams Story Reader Relationship Specialty Start Date End Date Karishma Espinal APRN [address] [place] [address] PCP - General 05/28/23 Colleen Umanzor MD [address] [place] [address] Surgeon Cardiothoracic Surgery 06/25/23 Nataly Granados MD [address] [place] [address] Consulting Physician Medical Oncology 06/29/23
--- OUTSIDE RECORDS SUMMARY | 2025-03-14 09:26 | XMS_ITS ---
Author Organization [facility] Address [address] [place] [address] Care Team Providers Care Business Services Officer Name Role Phone Karishma Espinal APRN Primary Care Provider [phone]- [phone] Colleen Umanzor MD Unavailable [phone] Nataly Granados MD Unavailable Active Problems Problem Noted Date Diagnosed Date [...] if agreeable Second hand smoke exposure 04/02/2023 Current Treatment and Therapy Plans No current plan information found. Past Treatment and Therapy Plans No past plan information found. Lifetime Dose Tracking * Chemical Lifetime Dose Automatic Entry Manual Entr y Fluoro Time 6.7 minutes 6.7 minutes 0 minutes Air Kerma 51.317 mGy 51.317 mGy 0 mGy Resolved Problems Problem Noted Date Diagnosed Date Resolved Date PONV (postoperative nausea and vomiting) 06/01/2023 06/03/2023
--- OUTSIDE RECORDS SUMMARY | 2025-03-14 09:26 | XMS_ITS | Encounter Summary ---
Author Organization [facility] Address [address] [place] [address] Care Team Providers Care Professional Fighter Name Role Phone Giovana Alvarez APRN Primary Care Provider [phone] Karishma Espinal APRN Primary Care Provider +- [phone] Colleen Umanzor MD Unavailable [phone] Nataly Granados MD Unavailable Encounter Details Date Type Department Care Team (Late st Contact Info) Description 01/21/2023 Orders Only External Location [address] [place] [address] Provider, External Social History Tobacco [...] EDT Appointment PAV G Radiology [address] [place] [address] 03/29/2025 10:45 AM EDT Office Visit Pav CC Head, Neck & Respiratory [address] [facility], [address]nd [place] [address] Colleen Umanzor MD [address] [place] [address] documented as of this encounter Procedures Procedure Name Priority Date/Time Associated Diagnosis Comments XR OUTSIDE IMAGES 01/21/2023 11:58 AM EDT documented in this encounter Results * XR OUTSIDE IMAGES (01/21/2023 11:58 AM EDT) Anatomical Region Laterality Modality Radiographic Sunitha ging 01/21/2023 11:5 8 AM EDT us External Provider IMG XR PROCEDURES Final Result documented in this encounter Visit Diagnoses Not on filedocumented in this encounter Care Teams Professional Fighter Relationship Specialty Start Date End Date Giovana Alvarez APRN [address] [place] [address] PCP - General 12/07/20 05/27/23 Karishma Espinal APRN [address] [place] [address] PCP - General 05/28/23 Colleen Umanzor MD [address] [place] [address] Surgeon Cardiothoracic Surgery 06/25/23 Nataly Granados MD [address] [place] [address] Consulting Physician Medical Oncology 06/29/23 documented as of this encounter
--- OUTSIDE RECORDS SUMMARY | 2025-03-14 09:26 | XMS_ITS | Clinical Summary ---
Author Organization [facility] Address [address] [place] [id number] Care Team Providers Care Jewelry Engraver Name Role Phone Giovana Alvarez APRN Primary Care Provider [phone] Social History Tobacco Use Types Packs/Day Years Used Date Smoking Tobacco: Never Assessed Abuse Screen Answer Date Recorded Unsafe at Home or Work/School Not on file Feels Threatened by Someone? Not on file 05/2023 Does Anyone Keep You from Co ntacting Others or Doint Things Outside the Home? Not on file 05/06/2023 Physical Sign of Abuse Present Not on file 1 Housing Stability Answer Date Recorded Current Living Arrangements Not on file 04/26 Potentially Unsafe Housing Conditions Not on kelvin e 05/06/2023 Family and Community Support Answer Josh e Recorded Help with Day-to-Day Activities Not on file 05/06/2023 Lonely or Isolated Not on file 05/06/2023 Employment Answer Date Recorded Do you want help finding or keeping work or a cally b? Not on file 05/06/2023 Disabilities Answer Date Recorded Concentrating, Remembering, or Making Decisions Difficulty Not on file 05/06/2023 Doing Errands Independently Difficulty Not on fi le 05/06/2023 Education Answer Date Recorded Help with school or training? Not on file Preferred Language Not on file 05/06/2023 Comments Unknown Sex and Gender Information Value Date Recorded Sex Assigned at Not on file Legal Sex Female 4:25 PM EDT Gender Identity Not on file Sexual Orientation Not on file Last Filed Vital Signs Vital Sign Reading Time Taken Comments Blood Pressure - - Pulse - - Temperature - - Respiratory Rate - - Oxygen Saturation - - Inhaled Oxygen Concentration - - Weight 46.3 kg (102 lb) 06/15/2019 11:12 AM EST Height 149.9 cm (4' 11 ) 06/15/2019 11:12 AM EST Body Mass Index 20.6 06/15/2019 11:12 AM EST Plan of Treatment Health Maintenance Due Date Last Done Comments ANNUAL PHYSICAL 1960 Annual Gynecologic Pelvic and Breast Exam 1960 HEPATITIS C SCREENING 1960 TDAP/TD VACCINES (1 - Tdap) 1979 MAMMOGRAM 2000 COLOGUARD 2005 COLON CANCER SCREENING 5 YEAR SIGMOIDOSCOPY 2005 COLONOSCOPY [address] CANCER SCREENING [address] COLONOGRAPHY 2005 FECAL OCCULT BLOOD TEST 2005 FIT Testing (1 year) 2005 Pneumococcal Vaccine 50+ (1 of 1 - PCV) 2010 ZOSTER VACCINE (1 of 2) 2010 COVID-19 Vaccine (1 - season) 2024 INFLUENZA VACCINE 04/26/2025 Care Teams Jewelry Engraver Relationship Specialty Start Date End Date Giovana Alvarez APRN PCP - General Family Medicine 04/11/19
[2025-03-14 09:42] LABS: Hematocrit 38.8 % (37.0-47.0); Hemoglobin 12.6 g/dL (12.2-16.2); Immature Granulocytes % 0.3 %; Mean Corpuscular HGB Conc 32.5 g/dL (31.8-35.4); Mean Corpuscular Hemoglobin 30.1 pg (27.0-31.2); Mean Corpuscular Volume 92.8 fl (81-99); Nucleated Red Blood Cells % 0 %; Platelet Count 258 K/mm3 (142-424); Red Blood Count 4.18 M/mm3 (4.20-5.40); Red Cell Distribution Width-SD 47.8 fL; White Blood Count 6.9 K/mm3 (4.8-10.8)
[2025-03-14 10:17] LABS: Alanine Aminotransferase 19 U/L (12-78); Albumin Level 4.1 g/dl (3.5-5.0); Alkaline Phosphatase 125 U/L (38-126); Anion Gap 14.3 mEq/L (5-15); Aspartate Amino Transferase 27 U/L (14-36); Bilirubin,Direct 0.1 mg/dl (0.0-0.4); Bilirubin,Indirect 0.4 mg/dL (0.0-0.9); Bilirubin,Total 0.5 mg/dl (0.2-1.3); Bilirubin,Unconjugated 0.3 mg/dL (0.0-1.1); Blood Urea Nitrogen 14 mg/dl (7-17); Calcium 9.4 mg/dl (8.4-10.2); Carbon Dioxide 27 mmol/L (22.0-30.0); Chloride 110 mmol/L (98-107); Cholesterol 242 mg/dl (140-200); Creatinine,Serum 0.60 mg/dl (0.52-1.04); Estimated Glomerular Filt Rate 101 ml/min (>60); GFR (African American) 122 ML/MIN (>60); Glucose 90 mg/dl (74-100); HDL Cholesterol 39 mg/dl (40-60); Magnesium 1.7 mg/dl (1.6-2.3); Potassium 3.3 mmoL/L (3.5-5.1); Sodium 148 mmol/L (136-145); Total Protein,Serum 6.3 g/dl (6.3-8.2); Triglycerides 210 mg/dl (30-150)
[2025-03-14 10:34] LABS: Free T4 (Free Thyroxine) 1.24 ng/dl (0.78-2.19)
[2025-03-14 10:46] LABS: Thyroid Stimulating Hormone 2.82 uIU/mL (0.465-4.68)
== END 2025-03-14 23:59 | disposition home or self-care (01) ==
PROVIDERS: PCP Nurse Practitioner Family; Visit Provider Nurse Practitioner
DX: K21.9 Gastro-esophageal reflux disease without esophagitis (principal); E78.5 Hyperlipidemia, unspecified; R94.31 Abnormal electrocardiogram [ECG] [EKG]
CPT/HCPCS: 36415; 80048; 80061; 80076; 83735; 84439; 84443; 85025